=== PATIENT | male | born 2000 | race Caucasian/White ===

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

== ENCOUNTER 2022-05-05 21:55 | Inpatient (IN) | payer BC, SELFPAY ==
--- NOTE | 2022-05-05 21:59 | XRR_ITS ---
PROCEDURE INFORMATION: Exam: XR Chest Exam date and time: 05/05/2022 10:05 PM Age: 21 years old Clinical indication: Other: Seizure TECHNIQUE: Imaging protocol: Radiologic exam of the chest. Views: 1 view. COMPARISON: CR Chest 1 [place] [id number] 08/21/2019 3:57 PM FINDINGS: Lungs: Nonspecific infiltrate at the right lung base. Minimal atelectasis at the left lung base. The upper lungs are clear. Pleural spaces: No pleural effusion. No pneumothorax. Heart/Mediastinum: No cardiomegaly. Bones/joints: Unremarkable. XR/XR chest 1V portable [id number] IMPRESSION: 1. Airspace disease at the right lung base, suspicious for pneumonia. This is new when compared to the previous study. 2. Mild atelectasis at the left lung base.
--- NOTE | 2022-05-05 21:59 | CTR_ITS ---
PROCEDURE INFORMATION: Exam: CT Head Without Contrast Exam date and time: 05/05/2022 11:03 PM Age: 21 years old Clinical indication: Condition or disease; Convulsions or seizures; Patient HX: HX of seizures but last one was 9 yrs ago. 3 tonight; Additional info: Seizure TECHNIQUE: Imaging protocol: Computed tomography of the head without contrast. Radiation optimization: All CT scans at this facility use at least one of these dose optimization techniques: automated exposure control; mA and/or kV adjustment per patient size (includes targeted exams where dose is matched to clinical indication); or iterative reconstruction. COMPARISON: CT head wo con* [id number] 08/21/2019 4:53 PM RADIATION DOSE METRICS: Total DLP (mGy-cm): 1214.58 FINDINGS: Brain: Unremarkable. No hemorrhage. No significant white matter disease. No edema. Cerebral ventricles: No ventriculomegaly. Paranasal sinuses: Visualized sinuses are unremarkable. No fluid levels. Mastoid air cells: Unremarkable as visualized. No mastoid effusion. Bones/joints: Unremarkable. No acute fracture. Soft tissues: Unremarkable. CT/CT head wo con* [id number] IMPRESSION: 1. No acute intracranial abnormality demonstrated. 2. No new abnormality demonstrated, when compared to the prior study.
[2022-05-05 22:01] VITALS: PULSE 144; RESP 20; TEMP 39.2; O2SAT 90; BMI 31.4
[2022-05-05] MEDS: sodium chloride 0.9% 500 ML IV (22:17)
[2022-05-05] MEDS: acetaminophen 1,000 MG/100 ML PIGGYBACK 400 MG IV (22:18)
--- NOTE | 2022-05-05 22:34 | ED_ITS ---
HPI - Seizure General: Chief Complaint: Seizure Stated Complaint: RESP. DISRESS Time Seen by Provider: 05/05/22 21:59 Source: patient and EMS Mode of arrival: EMS Limitations: altered mental status History of Present Illness: HPI Narrative: 21-year-old male who has a history of autism and is nonverbal per EMS he had a previous seizure history but had not had a seizure in 9 years he does take Keppra at home. He states that just prior to arrival he had had a seizure at home. They state that he also seized with them and they gave him 4 mg of IV Ativan. He should they state that he has been postictal and quite somnolent since the Ativan. Mother states that he has been at his baseline today has not had no cough or fever he is febrile here at 102.5. Review of Systems General: Reports: ROS unobtainable due to mental status [facility] ED PFSH: Medical History Allergic rhinitis Anxiety Autism disorder Epilepsy Managed by Dr. Casanova Surgical History History of tonsillectomy and adenoidectomy Hx of myringotomy Family History Other CAD (coronary artery disease) Cancer Lung disease Migraines, neuralgic Social History Smoking and tobacco status: never smoked Physical Exam Const: COMMON NORMALS: negative for patient oriented x3 EXAM LIMITATIONS: altered mental status GENERAL APPEARANCE: ill appearing HENMT: COMMON NORMALS: normocephalic and atraumatic HEAD & SCALP: nor mocephalic and atraumatic Eye: COMMON NORMALS: Equal, round and reactive pupils present PUPIL: Yes Equal, round and reactive pupils present Neck/C-Spine: COMMON NORMALS: full ROM and supple Chest: COMMONS NORMALS: normal inspection of the chest and normal palpation of entire chest wall Resp: COMMON NORMALS: normal respiratory effort, No retractions and No use of accessory muscles AUSCULTATION: rales Cardio: COMMON NORMALS: regular rhythm and No murmurs present (Cardio) RATE: tachycardic RHYTHM: regular rhythm GI: COMMON NORMALS: Normal to inspection, nondistended, normoactive bowel sounds present, Soft to palpation, non-tender and no masses PALPATION: Yes Soft to palpation Extremity: COMMON NORMALS: normal to inspection and full ROM Neuro: COMMON NORMALS: negative for patient oriented x3 Psych: COMMON NORMALS: negative for mental status grossly normal Skin: COMMON NORMALS: no rashes or lesions noted and no wounds GENERAL SKIN EXAM: no rashes or lesions noted Course Vital Signs: Vital signs: Vital Signs Temperature 98.6 F 05/06/22 00:30 Pulse Rate 122 H 05/06/22 00:30 Respiratory Rate 22 H 05/06/22 00:30 Blood Pressure 104/70 05/06/22 00:30 Pulse Oximetry 93 05/06/22 00:30 MDM - Seizure MDM Narrative Medical decision making narrative: Patient presents here with seizure he is also febrile likely from a pneumonia. Does have a history of a seizure but has not had one in quite some time his head CT here is normal patient is now awake and is back at his baseline. I spoke to the hospitalist and will admit at this time with his pneumonia. Lab Data Result diagrams: 05/05/22 22:41 05/05/22 22:41 Labs: Radiology Impressions Chest X-Ray 05/05/22 21:59 IMPRESSION: 1. Airspace disease at the right lung base, suspicious for pneumonia. This is new when compared to the previous study. 2. Mild atelectasis at the left lung base. Head CT 05/05/22 21:59 IMPRESSION: 1. No acute intracranial abnormality demonstrated. 2. No new abnormality demonstrated, when compared to the prior study. Laboratory Results WBC 7.2 10^3/uL (4.5-13.0) 05/05/22 22:41 RBC 4.23 10^6/uL (4.1-5.3) 05/05/22 22:41 Hgb 10.3 g/dL (11.7-16.6) L 05/05/22 22:41 Hct 34.4 % (42.0-52.0) L 05/05/22 22:41 MCV 81.3 fl (80-94) 05/05/22 22:41 MCH 24.3 pg (28.0-34.0) L 05/05/22 22:41 MCHC 29.9 g/dL (30.0-36.0) L 05/05/22 22:41 RDW 20.1 % (12.1-15.1) H 05/05/22 22:41 Plt Count 330 10^3/cmm (130-400) 05/05/22 22:41 MPV 8.3 fL (7.4-10.4) 05/05/22 22:41 Neut % (Auto) 81.9 % 05/05/22 22:41 Lymph % (Auto) 11.0 % 05/05/22 22:41 [place] % (Auto) 5.1 % 05/05/22 22:41 Eos % (Auto) 0.8 % 05/05/22 22:41 Baso % (Auto) 0.4 % 05/05/22 22:41 Neut # (Auto) 5.89 10^3/uL (1.8-8.0) 05/05/22 22:41 Lymph # (Auto) 0.8 10^3/uL (1.5-6.5) L 05/05/22 22:41 [place] # (Auto) 0.4 10^3/uL (0.2-0.9) 05/05/22 22:41 Eos # (Auto) 0.1 10^3/uL (0.0-0.8) 05/05/22 22:41 Baso # (Auto) 0.0 10^3/uL (0.0-0.1) 05/05/22 22:41 Nucleated RBC % (auto) 0 % 05/05/22 22:41 Nucleated RBCs # 0.0 /100WBC 05/05/22 22:41 Sodium 142 mmol/L (136-145) 05/05/22 22:41 Potassium 4.0 mmol/L (3.5-5.1) 05/05/22 22:41 Chloride 105 mmol/L (98-107) 05/05/22 22:41 Carbon Dioxide 30 mmol/L (22-29) H 05/05/22 22:41 Anion Gap 11.0 (5-19) 05/05/22 22:41 BUN 9 mg/dL (6-20) 05/05/22 22:41 Creatinine 1.0 mg/dL (0.7-1.2) 05/05/22 22:41 GFR Calculation 96.3 mL/min (90-130) 05/05/22 22:41 Glucose 134 mg/dL (65-115) H 05/05/22 22:41 Calculated Osmolality 295 mOsm/kg (285-295) 05/05/22 22:41 Calcium 8.7 mg/dL (8.5-10.5) 05/05/22 22:41 Total Bilirubin 0.3 mg/dL (0.15-1.2) 05/05/22 22:41 AST 30 U/L (0-40) 05/05/22 22:41 ALT 31 U/L (0-41) 05/05/22 22:41 Alkaline Phosphatase 75 IU/L (40-130) 05/05/22 22:41 Total Protein 6.8 g/dL (6.6-8.7) 05/05/22 22:41 Albumin 4.6 g/dL (3.5-5.2) 05/05/22 22:41 Globulin 2.2 g/dL (1.3-4.6) 05/05/22 22:41 Urine Color Yellow (Yellow) 05/05/22 22:20 Urine Appearance Clear (CLEAR) 05/05/22 22:20 Urine pH 7 (5-7) 05/05/22 22:20 Ur Specific [place] 1.010 (1.005-1.030) 05/05/22 22:20 Urine Protein Neg (Negative) 05/05/22 22:20 Urine Glucose (UA) Norm (Normal) 05/05/22 22:20 Urine Ketones Negative (Negative) 05/05/22 22:20 Urine Blood 2+ (Negative) H 05/05/22 22:20 Urine Nitrate Negative (Negative) 05/05/22 22:20 Urine Bilirubin Neg (Negative) 05/05/22 22:20 Urine Urobilinogen 4 mg/dL (Negative) H 05/05/22 22:20 Ur Leukocyte Esterase Negative (Negative) 05/05/22 22:20 Urine RBC 5-10 /hpf (0-2) H 05/05/22 22:20 Urine WBC 0-4 /hpf (0-5) H 05/05/22 22:20 Ur Squamous Epith Cells 0-4 /hpf (0-5) H 05/05/22 22:20 Amorphous Sediment Not Reportable 07/13/22 22:20 Urine Bacteria Trace /hpf (NONE) 05/05/22 22:20 SARS-CoV-2 Ag (Rapid) Negative (Negative) 05/05/22 22:20 Group A Strep Rapid Negative (Negative) 05/05/22 22:20 EKG Data EKG 1: Attestation: I personally reviewed and interpreted this EKG as follows: EKG interpretation date: 05/05/22 EKG interpretation time: 22:04 Interpretation: sinus tach hr [address] or t wave abnormalities qrs 97 qtc 338 Discharge Plan Discharge Patient Disposition: Admitted As Inpatient Clinical Impression: Generalized seizure, Pneumonia Condition: Stable Coding Level of Care Code ED Retail Advertising Account Executive for Chg Fwd Exam Comprehensive
[2022-05-05 22:39] LABS: Rapid Strep A Test Negative (Negative)
[2022-05-05 22:45] VITALS: BP 177/80; PULSE 146; RESP 16; O2SAT 89
[2022-05-05] MEDS: cefTRIAXone 1,000 MG in sodium chloride 0.9% (plus) 50 ML 100 MG IV (22:47)
[2022-05-05] MEDS: azithromycin 500 MG in sodium chloride 0.9% 250 ML 250 MG IV (22:47)
[2022-05-05 22:48] LABS: SARS Covid-2 Antigen Negative (Negative)
[2022-05-05 22:50] LABS: Basophils % 0.4 %; Eosinophils # 0.1 10^3/uL (0.0-0.8); Eosinophils % 0.8 %; Hematocrit 34.4 % (42.0-52.0); Hemoglobin 10.3 g/dL (11.7-16.6); Lymphocytes # 0.8 10^3/uL (1.5-6.5); Mean Corpuscular HGB Conc 29.9 g/dL (30.0-36.0); Mean Corpuscular Hemoglobin 24.3 pg (28.0-34.0); Mean Corpuscular Volume 81.3 fl (80-94); Mean Platelet Volume 8.3 fL (7.4-10.4); Monocytes # 0.4 10^3/uL (0.2-0.9); Monocytes % 5.1 %; Neutrophils # 5.89 10^3/uL (1.8-8.0); Neutrophils % 81.9 %; Nucleated Red Blood Cells % 0 %; Platelet Count 330 10^3/cmm (130-400); Red Blood Count 4.23 10^6/uL (4.1-5.3); Red Cell Distribution Width 20.1 % (12.1-15.1); White Blood Count 7.2 10^3/uL (4.5-13.0)
[2022-05-05 22:53] LABS: Add Urine Microscopic? YES; Bilirubin Urine Neg (Negative); Blood Urine 2+ (Negative); Glucose Urine UA Norm (Normal); Ketones Urine Negative (Negative); Leukocyte Esterase Urine Negative (Negative); Nitrate Urine Negative (Negative); Protein Urine Neg (Negative); Urine Appearance Clear (CLEAR); Urine Color Yellow (Yellow); Urobilinogen Urine 4 mg/dL (Negative); pH Urine 7 (5-7)
[2022-05-05 22:54] LABS: Add Urine Culture? No; Bacteria Urine TRACE /hpf; Squamous Epithelial Cell Urine 0-4 /hpf (0-5); WBC Urine 0-4 /hpf (0-5)
[2022-05-05 23:15] VITALS: BP 152/61; PULSE 155; RESP 20; O2SAT 86
[2022-05-05] MEDS: sodium chloride 0.9% 1,000 ML 999 ML IV (23:22)
[2022-05-05 23:26] LABS: Alanine Aminotransferase 31 U/L (0-41); Albumin Level 4.6 g/dL (3.5-5.2); Alkaline Phosphatase 75 IU/L (40-130); Aspartate Amino Transferase 30 U/L (0-40); Blood Urea Nitrogen 9 mg/dL (6-20); Calcium 8.7 mg/dL (8.5-10.5); Carbon Dioxide 30 mmol/L (22-29); Chloride 105 mmol/L (98-107); Globulin 2.2 g/dL (1.3-4.6); Glomerular Filtration Rate 96.3 mL/min (90-130); Glucose 134 mg/dL (65-115); Osmolality Calculated 295 mOsm/kg (285-295); Sodium 142 mmol/L (136-145); Total Bilirubin 0.3 mg/dL (0.15-1.2); Total Protein 6.8 g/dL (6.6-8.7)
[2022-05-05 23:30] VITALS: BP 146/59; PULSE 151; RESP 21; O2SAT 88
[2022-05-05 23:45] VITALS: BP 155/66; PULSE 147; RESP 22; O2SAT 86
[2022-05-06] VITALS (16 sets, daily range): BP systolic 104–151; BP diastolic 58–96; PULSE 81–127; RESP 13–24; TEMP 36.4–38.3; O2SAT 80–100; BMI 26.3
--- NOTE | 2022-05-06 02:29 | P.HP_ITS ---
Providers/Chief Complaint Admitting Physician: Flor King MD Primary Care Provider: Roxann Martinez MD Chief Complaint: RESP. DISRESS History of Present Illness Doug Pantoja is a 21 year old male with autism, severe developmental delay, nonverbal at baseline brought to the emergency room today with witnessed episode of seizure at home at around 8:30 PM. Mother witnessed patient to have had a seizure, presenting as twisting tightening movement of both upper and lower extremities, upturning of eyes, relative period of unresponsiveness lasting about a few minutes. Patient has been lethargic post the episode. Patient has a known history of seizure disorder and is on Keppra 750 mg p.o. twice daily. Last seizure prior to today was 9 years ago. No history of head trauma. Upon presentation to the ER he was also noted to be febrile to 102 Fahrenheit and has chest x-ray consistent with a right lower lobe pneumonia. Mother denies any complaints of cough, rhinorrhea, dyspnea, palpitations. He does have a new oxygen requirement today. Patient had 1 episode of diarrhea 2 days ago which resolved spontaneously. No vomiting or abdominal pain. Mother did not notice a fever at home. No witnessed aspiration episodes at home. Review of Systems General: Reports: 10 or more systems reviewed and unremarkable except in HPI and below Const: Denies: fever(s), chills or body aches Eyes: Denies: change in vision, blurry vision or photophobia ENMT: Reports: hoarseness; Denies: throat pain, enlarged tonsils, odynophagia or nasal congestion Card: Denies: chest pain, palpitations, irregular heart rhythm, edema, swelling of feet/ankles, lightheadedness, pre-syncope, dyspnea on exertion or orthopnea Resp: Denies: dyspnea, productive cough, non-productive cough, wheezing, stridor, pain on inspiration, change in phlegm color, hemoptysis or chest congestion GI: Denies: abdominal pain, nausea, vomiting, hematemesis, coffee ground emesis, dysphagia, heartburn, diarrhea, constipation, GI cramping, change in st ool character, hematochezia or melena : Denies: flank pain, dysuria, urinary frequency, urinary urgency, urinary hesitancy or hematuria Musc: Denies: neck pain, back pain, extremity pain, joint swelling, joint warmth or deformity Neuro: Denies: headache(s), numbness in extremities, weakness in extremities, sensory changes, difficulty walking, frequent falls, dizziness, vertigo, behavioral changes, Slurred speech present or seizure-like activity Psych: Denies: anxiety, depression, suicidal ideation or homicidal ideation Endo: Denies: polyuria, polydipsia, tired all the time, cold intolerance or hot flashes Theo/Lymph: Denies: easy bruising or easy bleeding Medications/Allergies Home Medications Medication Instructions Recorded Confirmed Last Taken Type clonidine HCl 0.1 mg tablet 0.1 mg PO .qhs #30 tab 11/19/19 05/06/22 Unknown Rx hydroxyzine HCl 25 mg tablet 25 mg PO TID PRN 05/06/22 05/06/22 Unknown History levetiracetam 750 mg tablet 750 mg PO BID 05/06/22 05/06/22 Unknown History loratadine 10 mg tablet 10 mg PO DAILY PRN 05/06/22 05/06/22 Unknown History melatonin 1 mg tablet 1 mg PO BEDTIME PRN 05/06/22 05/06/22 Unknown History sertraline 50 mg tablet 150 mg PO DAILY 05/06/22 05/06/22 Unknown History Allergies Allergy/AdvReac Type Severity Reaction Status Date / Time Penicillins Allergy ADR-Nausea Verified 06/18/21 15:17 Sulfa (Sulfonamide Allergy Unknown Verified 06/18/21 15:17 Antibiotics) PFSH Acute PFSH: Medical History Allergic rhinitis Anxiety Autism disorder Epilepsy Managed by Dr. Casanova Surgical History History of tonsillectomy and adenoidectomy Hx of myringotomy Family History Other CAD (coronary artery disease) Cancer Lung disease Migraines, neuralgic Social History Smoking and tobacco status: never smoked Vitals/I&O/Wt Last Vital Signs Temp 98.6 F 05/06/22 00:30 Pulse 122 H 05/06/22 01:28 Resp 22 H 05/06/22 01:28 BP 123/77 05/06/22 01:28 Pulse Ox 89 L 05/06/22 01:28 05/05/22 05/05/22 05/06/22 14:59 22:59 06:59 Intake Total 710 / 710 1299 Balance 710 / 710 1299 Weight last 48 hrs Weight 102.058 kg Physical Exam Narrative: GEN: Asleep at the time of my exam. Resting comfortably in bed. Oxi mask in place CVS: S1S2 N RS: Coarse breath sounds to auscultation right lower lobe. Abd: Soft, nt/nd , bs+ DIRECTOR SHIP: Asleep currently, wakes up to his mother calling name at bedside. Moves all 4 extremities in bed. Data : 05/05/22 22:41 05/05/22 22:41 Other Labs: Radiology Impressions Chest X-Ray 05/05/22 21:59 IMPRESSION: 1. Airspace disease at the right lung base, suspicious for pneumonia. This is new when compared to the previous study. 2. Mild atelectasis at the left lung base. Head CT 05/05/22 21:59 IMPRESSION: 1. No acute intracranial abnormality demonstrated. 2. No new abnormality demonstrated, when compared to the prior study. Laboratory Results WBC 7.2 10^3/uL (4.5-13.0) 05/05/22 22:41 RBC 4.23 10^6/uL (4.1-5.3) 05/05/22 22:41 Hgb 10.3 g/dL (11.7-16.6) L 05/05/22 22:41 Hct 34.4 % (42.0-52.0) L 05/05/22 22:41 MCV 81.3 fl (80-94) 05/05/22 22:41 MCH 24.3 pg (28.0-34.0) L 05/05/22 22:41 MCHC 29.9 g/dL (30.0-36.0) L 05/05/22 22:41 RDW 20.1 % (12.1-15.1) H 05/05/22 22:41 Plt Count 330 10^3/cmm (130-400) 05/05/22 22:41 MPV 8.3 fL (7.4-10.4) 05/05/22 22:41 Neut % (Auto) 81.9 % 05/05/22 22:41 Lymph % (Auto) 11.0 % 05/05/22 22:41 [place] % (Auto) 5.1 % 05/05/22 22:41 Eos % (Auto) 0.8 % 05/05/22 22:41 Baso % (Auto) 0.4 % 05/05/22 22:41 Neut # (Auto) 5.89 10^3/uL (1.8-8.0) 05/05/22 22:41 Lymph # (Auto) 0.8 10^3/uL (1.5-6.5) L 05/05/22 22:41 [place] # (Auto) 0.4 10^3/uL (0.2-0.9) 05/05/22 22:41 Eos # (Auto) 0.1 10^3/uL (0.0-0.8) 05/05/22 22:41 Baso # (Auto) 0.0 10^3/uL (0.0-0.1) 05/05/22 22:41 Nucleated RBC % (auto) 0 % 05/05/22 22:41 Nucleated RBCs # 0.0 /100WBC 05/05/22 22:41 Sodium 142 mmol/L (136-145) 05/05/22 22:41 Potassium 4.0 mmol/L (3.5-5.1) 05/05/22 22:41 Chloride 105 mmol/L (98-107) 05/05/22 22:41 Carbon Dioxide 30 mmol/L (22-29) H 05/05/22 22:41 Anion Gap 11.0 (5-19) 05/05/22 22:41 BUN 9 mg/dL (6-20) 05/05/22 22:41 Creatinine 1.0 mg/dL (0.7-1.2) 05/05/22 22:41 GFR Calculation 96.3 mL/min (90-130) 05/05/22 22:41 Glucose 134 mg/dL (65-115) H 05/05/22 22:41 Calculated Osmolality 295 mOsm/kg (285-295) 05/05/22 22:41 Calcium 8.7 mg/dL (8.5-10.5) 05/05/22 22:41 Total Bilirubin 0.3 mg/dL (0.15-1.2) 05/05/22 22:41 AST 30 U/L (0-40) 05/05/22 22:41 ALT 31 U/L (0-41) 05/05/22 22:41 Alkaline Phosphatase 75 IU/L (40-130) 05/05/22 22:41 Total Protein 6.8 g/dL (6.6-8.7) 05/05/22 22:41 Albumin 4.6 g/dL (3.5-5.2) 05/05/22 22:41 Globulin 2.2 g/dL (1.3-4.6) 05/05/22 22:41 Procalcitonin 0.06 ng/mL (0-0.5) 05/05/22 22:41 Urine Color Yellow (Yellow) 05/05/22 22:20 Urine Appearance Clear (CLEAR) 05/05/22 22:20 Urine pH 7 (5-7) 05/05/22 22:20 Ur Specific [place] 1.010 (1.005-1.030) 05/05/22 22:20 Urine Protein Neg (Negative) 05/05/22 22:20 Urine Glucose (UA) Norm (Normal) 05/05/22 22:20 Urine Ketones Negative (Negative) 05/05/22 22:20 Urine Blood 2+ (Negative) H 05/05/22 22:20 Urine Nitrate Negative (Negative) 05/05/22 22:20 Urine Bilirubin Neg (Negative) 05/05/22 22:20 Urine Urobilinogen 4 mg/dL (Negative) H 05/05/22 22:20 Ur Leukocyte Esterase Negative (Negative) 05/05/22 22:20 Urine RBC 5-10 /hpf (0-2) H 05/05/22 22:20 Urine WBC 0-4 /hpf (0-5) H 05/05/22 22:20 Ur Squamous Epith Cells 0-4 /hpf (0-5) H 05/05/22 22:20 Amorphous Sediment Not Reportable 05/05/22 22:20 Urine Bacteria Trace /hpf (NONE) 05/05/22 22:20 SARS-CoV-2 Ag (Rapid) Negative (Negative) 05/05/22 22:20 Group A Strep Rapid Negative (Negative) 05/05/22 22:20 Micro: Microbiology 05/05/22 22:43 Blood Culture - Preliminary Blood SPECIMEN COLLECTED 05/05/22 22:40 Blood Culture - Preliminary Blood SPECIMEN COLLECTED A&P Assessment and plan (1) Generalized seizure: Patient with known seizure disorder, presenting today with breakthrough seizure. He received Keppra loading dose 1 mg in the emergency room. We will continue keppra 750mg po bid. check Keppra level. Electrolytes otherwise within normal range. CT head without any acute abnormalities. His mother reports a past history of febrile seizures. Status: Acute (2) Community acquired pneumonia: Chest x-ray with right lower lobe infiltrate. No recent witnessed aspiration episode, however per mother patient has had choking episodes in the past when he has tried to stuff his mouth with too much food. Etiology of pneumonia likely to be CAP versus possible aspiration. Empiric antibiotic coverage with ceftriaxone, Flagyl, azithromycin. Urine Legionella and bacterial antigen, check sputum culture and gram stain, MRSA by PCR. Rapid COVID antigen negative. Supplemental O2 to keep saturation greater than 92%. DuoNeb inhalation every 6 hours. FEN normal saline at 75 cc an hour. Blood culture taken prior to initiation of antibiotics. Status: Acute Attestations Medical Necessity Statement*: Anticipate greater than 2 midnight for management of community-acquired pneumonia, IV antibiotics, seizures Coding Level of Care Code Acute Costume Shop Manager for Irene Galicia Diagnoses Generalized seizure R56.9 Community acquired pneumonia J18.9
[2022-05-06] MEDS: sodium chloride 0.9% 1,000 ML 75 ML IV (03:20)
[2022-05-06] MEDS: enoxaparin 40 mg/0.4 mL Syringe SUBCUT (03:21)
[2022-05-06] MEDS: metroNIDAZOLE IV 500 MG/100 ML PREMIX 100 MG IV (03:21)
[2022-05-06] MEDS: ipratropium-albuterol 3 mL Neb INHALATION ×4 (03:57→20:45)
[2022-05-06] MEDS: acetaminophen 1,000 MG/100 ML PIGGYBACK 400 MG IV (04:44)
[2022-05-06] MEDS: sertraline 50 mg Tablet 150 MG PO (09:28)
[2022-05-06] MEDS: azithromycin 250 mg Tablet 500 MG PO (09:29)
[2022-05-06] MEDS: pantoprazole DR 40 mg Tablet PO (09:29)
--- NOTE | 2022-05-06 10:41 | PM.PN ---
Subjective Subjective: Patient is febrile, tachycardic no leukocytosis He has not been diagnosed with sepsis Patient has been pulling on his IV in the tubes, will remove Humphreys catheter I will switch his IV antibiotics to p.o. Augmentin For his seizure etiology is unknown, right now he is saturating well on room air 97% Nasal cannula has been turned off, caregiver at the bedside Vitals/I&O/Wt Last Vital Signs Temp 101.0 F H 05/06/22 04:00 Pulse 102 H 05/06/22 08:43 Resp 18 05/06/22 08:32 BP 125/68 05/06/22 04:00 Pulse Ox 98 05/06/22 08:32 05/05/22 05/06/22 05/06/22 22:59 06:59 14:59 Intake Total 710 / 710 1500 / 2210 Output Total 1999 / 1999 Balance 710 / 710 -500 / 210 Weight last 48 hrs Weight 92.986 kg Weight 102.058 kg Physical Exam Narrative: Patient was saturating well 97% on room air He is nonverbal Moving his arms and legs nonpurposeful weight I do not appreciate any signs of meningitis He is febrile, source of infection is pneumonia Bilateral breath sounds with crackles at the base of the lungs Chest also sound congested Neuro exam is limited He is able able to follow commands Abdomen is soft I did not appreciate any swelling of his legs or genitalia Data : 05/05/22 22:41 05/05/22 22:41 Micro: Microbiology 05/06/22 04:20 Bacterial Antigens - Final Urine,Clean Catch 05/06/22 04:20 Legionella Urinary Antigen - Final Urine Catheterized 05/05/22 22:43 Blood Culture - Preliminary Blood SPECIMEN COLLECTED 05/05/22 22:40 Blood Culture - Preliminary Blood SPECIMEN COLLECTED A&P Assessment and plan (1) Community acquired pneumonia: Status: Acute (2) Generalized seizure: Status: Acute (3) Pneumonia: Status: Acute (4) Incontinence of feces: Status: Acute Qualifiers: Fecal incontinence type: full incontinence of feces Qualified Code(s): R15.9 - Full incontinence of feces Plan Community-acquired pneumonia Generalized seizure I will watch him off antiepileptic for now He satting well on room air He is not hypoxic No signs of meningitis Febrile episodes noted, source of infection is pneumonia Patient has been pulling on his Humphreys catheter and IV line, He was bleeding from his IV site as well He is not diagnosed with sepsis I would go ahead and de-escalate his antibiotics to Augmentin, discontinue Humphreys catheter He can wear adult diapers Full code Attestations Medical Necessity Statement*: dc Tomorrow Coding Level of Care Code Acute Hothouse Worker for Chg Fwd Diagnoses Community acquired pneumonia J18.9 Generalized seizure R56.9 Pneumonia J18.9 Incontinence of feces R15.9 Fecal incontinence type: full incontinence of feces
[2022-05-06] MEDS: amoxicillin-clav 875-125 mg Tablet 1 TAB PO ×2 (11:51→20:22)
[2022-05-06] MEDS: ketorolac 30 mg/mL INJ IM (11:52)
[2022-05-06 12:00] LABS: Glucose Point of Care 108 mg/dL (70-110)
[2022-05-07] VITALS: BP 175/85; PULSE 100; RESP 14; TEMP 36.8; O2SAT 98
[2022-05-07 03:07] LABS: Basophils % 0.1 %; Hematocrit 32.8 % (42.0-52.0); Hemoglobin 10.3 g/dL (11.7-16.6); Lymphocytes # 0.7 10^3/uL (1.5-6.5); Lymphocytes % 9.1 %; Mean Corpuscular HGB Conc 31.4 g/dL (30.0-36.0); Mean Corpuscular Hemoglobin 24.3 pg (28.0-34.0); Mean Corpuscular Volume 77.5 fl (80-94); Mean Platelet Volume 8.6 fL (7.4-10.4); Monocytes # 0.4 10^3/uL (0.2-0.9); Monocytes % 5.6 %; Neutrophils # 6.06 10^3/uL (1.8-8.0); Neutrophils % 84.9 %; Nucleated Red Blood Cells % 0 %; Platelet Count 286 10^3/cmm (130-400); Red Blood Count 4.23 10^6/uL (4.1-5.3); Red Cell Distribution Width 19.2 % (12.1-15.1); White Blood Count 7.1 10^3/uL (4.5-13.0)
[2022-05-07 03:38] LABS: Anion Gap 15.1 (5-19); Blood Urea Nitrogen 12 mg/dL (6-20); Calcium 9.3 mg/dL (8.5-10.5); Carbon Dioxide 27 mmol/L (22-29); Chloride 97 mmol/L (98-107); Glomerular Filtration Rate 145.3 mL/min (90-130); Glucose 111 mg/dL (65-115); Osmolality Calculated 280 mOsm/kg (285-295); Potassium 4.1 mmol/L (3.5-5.1); Sodium 135 mmol/L (136-145); Thyroid Stimulating Hormone 1.35 uIU/mL (0.27-4.20)
[2022-05-07 04:00] VITALS: BP 134/83; PULSE 86; RESP 15; TEMP 36.8; O2SAT 97
[2022-05-07 08:00] VITALS: BP 138/78; PULSE 96; RESP 16; TEMP 36.8; O2SAT 93
[2022-05-07] MEDS: ipratropium-albuterol 3 mL Neb INHALATION (08:14)
[2022-05-07 08:15] VITALS: PULSE 96; RESP 16; O2SAT 93
[2022-05-07 08:23] VITALS: PULSE 102; RESP 16; O2SAT 93
[2022-05-07] MEDS: sertraline 50 mg Tablet 150 MG PO (08:34)
[2022-05-07] MEDS: amoxicillin-clav 875-125 mg Tablet 1 TAB PO (08:34)
[2022-05-07] MEDS: pantoprazole DR 40 mg Tablet PO (08:35)
--- NOTE | 2022-05-07 10:22 | PM.DCS ---
Discharge Providers Date of Admission: 05/06/22 00:40 Date of Discharge: May 07, 2022 Attending Provider at Admission: Flor King MD Attending Provider at Discharge: Álvaro Kuhn MD Primary Care Provider: Roxann Martinez MD Diagnoses at Discharge Discharge Diagnosis (1) Community acquired pneumonia: Status: Acute (2) Generalized seizure: Status: Acute (3) Pneumonia: Status: Acute (4) Incontinence of feces: Status: Acute Qualifiers: Fecal incontinence type: full incontinence of feces Qualified Code(s): R15.9 - Full incontinence of feces Reason for Visit Reason for Visit: RESP. DISRESS Hospital Course Hospital Course History of Present Illness by Dr. King Doug Pantoja is a 21 year old male with autism, severe developmental delay, nonverbal at baseline brought to the emergency room today with witnessed episode of seizure at home at around 8:30 PM.? Mother witnessed patient to have had a seizure, presenting as twisting tightening movement of both upper and lower extremities, upturning of eyes, relative period of unresponsiveness lasting about a few minutes.? Patient has been lethargic post the episode.? Patient has a known history of seizure disorder and is on Keppra 750 mg p.o. twice daily.? Last seizure prior to today was 9 years ago.? No history of head trauma.? Upon presentation to the ER he was also noted to be febrile to 102 Fahrenheit and has chest x-ray consistent with a right lower lobe pneumonia.? Mother denies any complaints of cough, rhinorrhea, dyspnea, palpitations.? He does have a new oxygen requirement today.? Patient had 1 episode of diarrhea 2 days ago which resolved spontaneously.? No vomiting or abdominal pain.? Mother did not notice a fever at home.? No witnessed aspiration episodes at home. Hospital course Patient was admitted for management evaluation of pneumonia, right lower lobe pneumonia most likely consistent with aspiration, patient was pulling his IV line and Humphreys catheter, I change his antibiotics to p.o. Augmentin, he did not spike fever since de-escalation of antibiotics, he was not septic, cultures negative, no significant leukocytosis At the time of admission patient is not requiring any oxygen at all, he saturating 97% on room air, hypoxia improved. For his pneumonia he will get Augmentin and he can continue his Keppra 750 mg twice daily for now. Urine antigens are negative. Blood cultures negative. MRSA nares PCR negative Physical Exam Narrative: Patient is saturating well on room air Patient is nonverbal Sister is at the bedside Patient looks euvolemic Bilateral breath sounds with rhonchi at the base of the lungs bilaterally No audible stridor or wheezing No signs of respiratory distress Abdomen soft S1, S2 Discharge Data Studies Completed and Pending Completed Studies During Hospitalization Category Date Time Status CT head wo con* [id number] Urgent Cat Scan 05/05/22 21:59 Completed XR chest 1V portable [id number] Urgent Exams 05/05/22 21:59 Completed Pending at discharge Category Date Time Status Blood Culture Stat Lab 05/05/22 22:43 Results Sputum Culture and Gram Stain Routine Lab 05/06/22 02:15 Ordered Streptococcus Culture Group A Stat Lab 05/05/22 22:20 Received Radiology Impressions Chest X-Ray 05/05/22 21:59 IMPRESSION: 1. Airspace disease at the right lung base, suspicious for pneumonia. This is new when compared to the previous study. 2. Mild atelectasis at the left lung base. Head CT 05/05/22 21:59 IMPRESSION: 1. No acute intracranial abnormality demonstrated. 2. No new abnormality demonstrated, when compared to the prior study. Laboratory Results WBC 7.1 10^3/uL (4.5-13.0) 05/07/22 02:28 RBC 4.23 10^6/uL (4.1-5.3) 05/07/22 02:28 Hgb 10.3 g/dL (11.7-16.6) L 05/07/22 02:28 Hct 32.8 % (42.0-52.0) L 05/07/22 02:28 MCV 77.5 fl (80-94) L 05/07/22 02:28 MCH 24.3 pg (28.0-34.0) L 05/07/22 02:28 MCHC 31.4 g/dL (30.0-36.0) D 05/07/22 02:28 RDW 19.2 % (12.1-15.1) H 05/07/22 02:28 Plt Count 286 10^3/cmm (130-400) 05/07/22 02:28 MPV 8.6 fL (7.4-10.4) 05/07/22 02:28 Neut % (Auto) 84.9 % 05/07/22 02:28 Lymph % (Auto) 9.1 % 05/07/22 02:28 [place] % (Auto) 5.6 % 05/07/22 02:28 Eos % (Auto) 0.0 % 05/07/22 02:28 Baso % (Auto) 0.1 % 05/07/22 02:28 Neut # (Auto) 6.06 10^3/uL (1.8-8.0) 05/07/22 02:28 Lymph # (Auto) 0.7 10^3/uL (1.5-6.5) L 05/07/22 02:28 [place] # (Auto) 0.4 10^3/uL (0.2-0.9) 05/07/22 02:28 Eos # (Auto) 0.0 10^3/uL (0.0-0.8) 05/07/22 02:28 Baso # (Auto) 0.0 10^3/uL (0.0-0.1) 05/07/22 02:28 Nucleated RBC % (auto) 0 % 05/07/22 02:28 Nucleated RBCs # 0.0 /100WBC 05/07/22 02:28 Sodium 135 mmol/L (136-145) L 05/07/22 02:28 Potassium 4.1 mmol/L (3.5-5.1) 05/07/22 02:28 Chloride 97 mmol/L (98-107) L 05/07/22 02:28 Carbon Dioxide 27 mmol/L (22-29) 05/07/22 02:28 Anion Gap 15.1 (5-19) 05/07/22 02:28 BUN 12 mg/dL (6-20) 05/07/22 02:28 Creatinine 0.7 mg/dL (0.7-1.2) 05/07/22 02:28 GFR Calculation 145.3 mL/min (90-130) H 05/07/22 02:28 Glucose 111 mg/dL (65-115) 05/07/22 02:28 POC Glucose 108 mg/dL (70-110) 05/06/22 11:37 Calculated Osmolality 280 mOsm/kg (285-295) L 05/07/22 02:28 Calcium 9.3 mg/dL (8.5-10.5) 05/07/22 02:28 Total Bilirubin 0.3 mg/dL (0.15-1.2) 05/05/22 22:41 AST 30 U/L (0-40) 05/05/22 22:41 ALT 31 U/L (0-41) 05/05/22 22:41 Alkaline Phosphatase 75 IU/L (40-130) 05/05/22 22:41 Total Protein 6.8 g/dL (6.6-8.7) 05/05/22 22:41 Albumin 4.6 g/dL (3.5-5.2) 05/05/22 22:41 Globulin 2.2 g/dL (1.3-4.6) 05/05/22 22:41 Procalcitonin Cancelled 05/05/22 22:41 TSH 1.35 uIU/mL (0.27-4.20) 05/07/22 02:28 Urine Color Yellow (Yellow) 05/05/22 22:20 Urine Appearance Clear (CLEAR) 05/05/22 22:20 Urine pH 7 (5-7) 05/05/22 22:20 Ur Specific [place] 1.010 (1.005-1.030) 05/05/22 22:20 Urine Protein Neg (Negative) 05/05/22 22:20 Urine Glucose (UA) Norm (Normal) 05/05/22 22:20 Urine Ketones Negative (Negative) 05/05/22 22:20 Urine Blood 2+ (Negative) H 05/05/22 22:20 Urine Nitrate Negative (Negative) 05/05/22 22:20 Urine Bilirubin Neg (Negative) 05/05/22 22:20 Urine Urobilinogen 4 mg/dL (Negative) H 05/05/22 22:20 Ur Leukocyte Esterase Negative (Negative) 05/05/22 22:20 Urine RBC 5-10 /hpf (0-2) H 05/05/22 22:20 Urine WBC 0-4 /hpf (0-5) H 05/05/22 22:20 Ur Squamous Epith Cells 0-4 /hpf (0-5) H 05/05/22 22:20 Amorphous Sediment Not Reportable 05/05/22 22:20 Urine Bacteria Trace /hpf (NONE) 05/05/22 22:20 Levetiracetam Cancelled 05/05/22 22:41 SARS-CoV-2 Ag (Rapid) Negative (Negative) 05/05/22 22:20 Group A Strep Rapid Negative (Negative) 05/05/22 22:20 Vitals Last Vital Signs Temp 98.3 F 05/07/22 08:00 Pulse 102 H 05/07/22 08:23 Resp 16 05/07/22 08:23 BP 138/78 05/07/22 08:00 Pulse Ox 93 05/07/22 08:23 Discharge Plan Discharge Patient Disposition: Home Condition: Stable Prescriptions: New amoxicillin-pot clavulanate 875-125 mg Tablet 1 tab PO BID Qty: 10 0RF Continued clonidine HCl 0.1 mg tablet 0.1 mg PO .qhs Qty: 30 3RF melatonin 1 mg Tablet 1 mg PO BEDTIME PRN (Reason: Insomnia) 0RF hydroxyzine HCl 25 mg tablet 25 mg PO TID PRN (Reason: Itching) 0RF Rx Instructions: TAKE 1 TABLET BY MOUTH THREE TIMES A DAY NEEDED FOR ITCHING sertraline 50 mg tablet 150 mg PO DAILY 0RF Changed levetiracetam 750 mg tablet 750 mg PO BID Qty: 60 3RF Rx Instructions: TAKE 1 TABLET BY MOUTH TWICE A DAY Discontinued loratadine 10 mg Tablet 10 mg PO DAILY PRN (Reason: Allergy Symptoms) 0RF Discharge Orders: Discharge Order (Routine); Ordered 05/07/22 Ordered By: Álvaro Kuhn Referrals: Roxann Martinez MD [Primary Care Provider] - Patient Instructions: Opioid Safety Discharge Attestations Time Spent in Discharge Care*: less than 30 min Quality Metrics Clinical Quality Measures [ No reported AMI, CVA or VTE this stay] Coding Level of Care Code Acute [facility] note Diagnoses Community acquired pneumonia J18.9 Generalized seizure R56.9 Pneumonia J18.9 Incontinence of feces R15.9 Fecal incontinence type: full incontinence of feces
--- NOTE | 2022-05-07 10:27 | PM.MISC ---
Miscellaneous Note Note: Mr. Doug Corley was admitted for management of breakthrough seizure and aspiration pneumonia. He will get Augmentin for 5 days. He will continue his antiepileptic medication. Fortunately we have been successful to wean him off oxygen to room air. Please consider giving him 5 days off from his school. Should you have any questions [facility]
[2022-05-07 10:49] VITALS: PULSE 102; RESP 16; O2SAT 93
--- NOTE | 2022-05-07 11:13 | PC.NURSE ---
Discharge to home w/ his legal guardian-cheryle Discuss to the mother his ff-up appointment and new meds, continued meds and discontinued meds. Discharge papers, school release paper provided to the mother.
== END 2022-05-07 11:12 | disposition home or self-care (01) | DRG 178 ==
LOC: ER 05-06 01:00 → MEDSURG 05-06 06:39
PROVIDERS: Admitting Provider Student in an Organized Health Care Education/Training Program; Emergency Provider Emergency Medicine; PCP Pediatrics Adolescent Medicine; Visit Provider Internal Medicine
DX: J69.0 Pneumonitis due to inhalation of food and vomit (principal); F84.0 Autistic disorder; G40.909 Epilepsy, unspecified, not intractable, without status epilepticus; R15.9 Full incontinence of feces; Z20.822 Contact with and (suspected) exposure to COVID-19
CPT/HCPCS: 36415; 36416; 70450; 71045; 80048; 80053; 81001; 82962; 84443; 85025; 86403; 87040; 87081; 87426; 87449; 87641; 87880; 94640; 94799; 96365; 96367; 96372; 96375; 99285; J0456; J0696; J1650; J1885; J1953; J7030; J7040; J7050; Q0144; S0030

== ENCOUNTER 2022-06-10 22:45 | Emergency (ER) | payer BC, MEDICAID, SELFPAY ==
[2022-06-10 22:45] VITALS: BP 173/91; PULSE 160; RESP 17; O2SAT 85; BMI 35.2
[2022-06-10] MEDS: midazolam 1 mg/mL INJ 2 mL 2 MG (22:48)
[2022-06-10] MEDS: vecuronium 10 mg SDV IVP (22:53)
--- NOTE | 2022-06-10 22:55 | CTR_ITS ---
PROCEDURE INFORMATION: Exam: CT Head Without Contrast Exam date and time: 06/10/2022 11:43 PM Age: 21 years old Clinical indication: Condition or disease; Convulsions or seizures; Prior surgery; Surgery date: 6+ months; Surgery type: Myringotomy, HX of epilepsy with autism; Additional info: Seizure TECHNIQUE: Imaging protocol: Computed tomography of the head without contrast. Radiation optimization: All CT scans at this facility use at least one of these dose optimization techniques: automated exposure control; mA and/or kV adjustment per patient size (includes targeted exams where dose is matched to clinical indication); or iterative reconstruction. COMPARISON: CT head wo con* [id number] 05/05/2022 11:03 PM RADIATION DOSE METRICS: Total DLP (mGy-cm): 1093.88 FINDINGS: Brain: Normal. No hemorrhage. Unremarkable white matter. No mass effect. Cerebral ventricles: No ventriculomegaly. Paranasal sinuses: Visualized sinuses are unremarkable. No fluid levels. Mastoid air cells: Visualized mastoid air cells are well aerated. Bones/joints: Unremarkable. No acute fracture. Soft tissues: Unremarkable. CT/CT head wo con* [id number] IMPRESSION: No acute intracranial abnormality.
--- NOTE | 2022-06-10 22:55 | XRR_ITS ---
PROCEDURE INFORMATION: Exam: XR Chest Exam date and time: 06/10/2022 10:59 PM Age: 21 years old Clinical indication: Device placement; Ett placement (vent status); Additional info: Intubation TECHNIQUE: Imaging protocol: Radiologic exam of the chest. Views: 1 view. COMPARISON: CR (CHEST, ) 05/05/2022 10:05 PM FINDINGS: Tubes, catheters and devices: Endotracheal tube tip in place 17.6 mm above the kasandra. Lungs: See Heart/Mediastinum finding. Pleural spaces: Unremarkable. No pleural effusion. No pneumothorax. Heart/Mediastinum: Cardiomegaly and mild pulmonary vascular congestion. Bones/joints: Unremarkable. XR/XR chest 1V portable [id number] IMPRESSION: 1. Endotracheal tube tip in place 17.6 mm above the kasandra. 2. Cardiomegaly and mild pulmonary vascular congestion.
--- NOTE | 2022-06-10 22:56 | ECG_ITS ---
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 Measurements Intervals [place] Rate: 140 P: OK: QRS: 94 QRSD: 93 T: 43 QT: 276 QTc: 422 Interpretive Statements SINUS TACHYCARDIA BORDERLINE RIGHT AXIS DEVIATION [QRS AXIS > 90] Compared to ECG 08/21/2019 16:53:14Sinus arrhythmia no longer present Electronically Signed On 06-11-2022 17:48:22 CDT by Tom Phan M.D. [email or web address]
--- NOTE | 2022-06-10 23:01 | W.ED.SEIZURE ---
HPI - Seizure General: Chief Complaint: Seizure Stated Complaint: SEIZURE Time Seen by Provider: 06/10/22 22:48 Source: EMS Mode of arrival: EMS Limitations: altered mental status History of Present Illness: HPI Narrative: 21-year-old male has a history of autism along with epilepsy he takes Keppra at home for his epilepsy Per EMS patient been seizing for 10 minutes had given him 5 mg of Versed patient is currently still actively seizing patient was admitted here roughly 1 to 2 months ago for seizures as well no recent illness no fever no vomiting no diarrhea. Review of Systems General: Reports: ROS unobtainable due to mental status PFS ED PFSH: Medical History Allergic rhinitis Anxiety Autism disorder Epilepsy Managed by Dr. Casanova Generalized seizure Hydrocele Noted May 2019. Decreased in size by report July 2019 and continued report May 2022. Incontinence of feces Pneumonia Surgical History History of tonsillectomy and adenoidectomy Hx of myringotomy Family History Other CAD (coronary artery disease) Cancer Lung disease Migraines, neuralgic Social History Smoking and tobacco status: never smoked Physical Exam Const: COMMON NORMALS: negative for patient oriented x3 GENERAL APPEARANCE: in distress HENMT: COMMON NORMALS: normocephalic and atraumatic HEAD & SCALP: normocephalic and atraumatic Eye: COMMON NORMALS: Equal, round and reactive pupils present and EOMs intact bilaterally PUPIL: Yes Equal, round and reactive pupils present Neck/C-Spine: COMMON NORMALS: full ROM and supple Chest: COMMONS NORMALS: normal inspection of the chest and normal palpation of entire chest wall Resp: COMMON NORMALS: No retractions, No use of accessory muscles and clear to auscultation bilaterally AUSCULTATION: clear to auscultation bilaterally Cardio: COMMON NORMALS: regular rhythm and No murmurs present (Cardio) RATE: tachycardic RHYTHM: regular rhythm GI: COMMON NORMALS: Normal to inspection, nondistended, normoactive bowel sounds present, Soft to palpation, non-tender and no masses PALPATION: Yes Soft to palpation Extremity: COMMON NORMALS: normal to inspection and full ROM Neuro: COMMON NORMALS: negative for patient oriented x3 OTHER: Actively seizing Psych: COMMON NORMALS: negative for mental status grossly normal Skin: COMMON NORMALS: no rashes or lesions noted and no wounds GENERAL SKIN EXAM: no rashes or lesions noted Course Vital Signs: Vital signs: Vital Signs Pulse Rate 149 H 06/10/22 23:07 Respiratory Rate 16 06/10/22 23:25 Blood Pressure 151/88 06/10/22 23:07 Pulse Oximetry 98 06/10/22 23:07 Oxygen Delivery Me thod 06/10/22 23:07 Oxygen Flow Rate 100 06/10/22 22:45 Fraction of Inspir ed Oxygen 100 06/10/22 23:25 MDM - Seizure MDM Narrative Medical decision making narrative: Patient presents here with seizure was in status epilepticus had an neisha patient to stop the seizing. I spoke to field coil winder at [facility] will transfer there for higher level of care for continuous EEG Lab Data Result diagrams: 06/10/22 22:54 06/10/22 22:54 Labs: Laboratory Results WBC 27.6 10^3/uL (4.5-13.0) H 06/10/22 22:54 RBC 5.02 10^6/uL (4.1-5.3) 06/10/22 22:54 Hgb 12.6 g/dL (11.7-16.6) 06/10/22 22:54 Hct 45.2 % (42.0-52.0) 06/10/22 22:54 MCV 90.0 fl (80-94) 06/10/22 22:54 MCH 25.1 pg (28.0-34.0) L 06/10/22 22:54 MCHC 27.9 g/dL (30.0-36.0) L 06/10/22 22:54 RDW 16.2 % (12.1-15.1) H 06/10/22 22:54 Plt Count 574 10^3/cmm (130-400) H 06/10/22 22:54 MPV 8.8 fL (7.4-10.4) 06/10/22 22:54 Neut % (Auto) 35.5 % 06/10/22 22:54 Lymph % (Auto) 51.5 % 06/10/22 22:54 [place] % (Auto) 8.3 % 06/10/22 22:54 Eos % (Auto) 0.9 % 06/10/22 22:54 Baso % (Auto) 0.5 % 06/10/22 22:54 Neut # (Auto) 9.78 10^3/uL (1.8-8.0) H 06/10/22 22:54 Lymph # (Auto) 14.2 10^3/uL (1.5-6.5) H 06/10/22 22:54 [place] # (Auto) 2.3 10^3/uL (0.2-0.9) H 06/10/22 22:54 Eos # (Auto) 0.3 10^3/uL (0.0-0.8) 06/10/22 22:54 Baso # (Auto) 0.2 10^3/uL (0.0-0.1) H 06/10/22 22:54 Nucleated RBC % (auto) 0 % 06/10/22 22:54 Nucleated RBCs # 0.0 /100WBC 06/10/22 22:54 Specimen Type Arterial 06/10/22 23:11 Sample Site Radial, right 06/10/22 23:11 ABG pH 7.10 (7.35-7.45) L* 06/10/22 23:11 ABG pCO2 53.7 mmHg (35-45) H 06/10/22 23:11 ABG pO2 236.0 mmHg (80.0-100.0) H 06/10/22 23:11 ABG HCO3 16.7 mmol/L (22-26) L 06/10/22 23:11 ABG O2 Saturation 99.6 06/10/22 23:11 ABG Base Excess -12.9 mmol/L (-2.0-2.0) L 06/10/22 23:11 [place] Test Pos 06/10/22 23:11 A-a O2 Gradient 53.0 mmHg (5-10) H 06/10/22 23:11 Hematocrit 37.5 % (42-52) L 06/10/22 23:11 Hgb O2 Saturation 97.8 % (95-100) 06/10/22 23:11 Carboxyhemoglobin 0.7 %THgb (0.4-20.1) 06/10/22 23:11 Methemoglobin 1.1 % (0.4-1.5) 06/10/22 23:11 Total Hemoglobin 12.2 g/dL (14-18) L 06/10/22 23:11 Sodium 141.0 mmol/L (131-143) 06/10/22 23:11 Potassium 3.9 mmol/L (3.5-5.0) 06/10/22 23:11 Glucose 167.0 mg/dL (70-115) H 06/10/22 23:11 Ionized Calcium 1.3 mmol/L (1.1-1.4) 06/10/22 23:11 O2 Delivery Device Vent 06/10/22 23:11 FiO2 100.0 % 06/10/22 23:11 PEEP 5.0 cmH20 06/10/22 23:11 Business Intelligence Engineer ID [place] 06/10/22 23:11 Sodium 143 mmol/L (136-145) 06/10/22 22:54 Potassium 4.1 mmol/L (3.5-5.1) 06/10/22 22:54 Chloride 100 mmol/L (98-107) 06/10/22 22:54 BUN 14 mg/dL (6-20) 06/10/22 22:54 Creatinine 1.2 mg/dL (0.7-1.2) 06/10/22 22:54 Total Bilirubin 0.2 mg/dL (0.15-1.2) 06/10/22 22:54 AST 31 U/L (0-40) 06/10/22 22:54 ALT 26 U/L (0-41) 06/10/22 22:54 Alkaline Phosphatase 121 U/L (40-130) 06/10/22 22:54 Total Protein 8.1 g/dL (6.6-8.7) 06/10/22 22:54 Albumin 4.8 g/dL (3.5-5.2) 06/10/22 22:54 Globulin 3.3 g/dL (1.3-4.6) 06/10/22 22:54 Urine Opiates Screen Negative ng/mL (Negative) 06/10/22 23:15 Ur Barbiturates Screen Negative ng/mL (Negative) 06/10/22 23:15 Ur Phencyclidine Scrn Negative ng/mL (Negative) 06/10/22 23:15 Ur Amphetamines Screen Negative ng/mL (Negative) 06/10/22 23:15 U Benzodiazepines Scrn Negative ng/mL (Negative) 06/10/22 23:15 Urine Cocaine Screen Negative ng/mL (Negative) 06/10/22 23:15 U Marijuana (THC) Screen Negative ng/mL (Negative) 06/10/22 23:15 EKG Data EKG 1: Attestation: I personally reviewed and interpreted this EKG as follows: EKG interpretation date: 06/10/22 EKG interpretation time: 23:08 Interpretation: snus tach hr [address] or t wave abnormalities qrs 93 qtc 358 Critical Care Time Critical Care Time: Critical Care Time: Yes Total Critical Care Time: 40 Attestation: The high probability of a clinically significant, sudden or life threatening deterioration of the patient's neuro system(s) required my full and direct attention, intervention and personal management. The critical care time is as shown. This time is in addition to time spent performing any reported procedures but includes the following: [x] Data and vital sign review and interpretation [x] Patient assessment, examination and intervention [x] Documentation [x] Medication orders and management Discharge Plan Discharge Patient Disposition: Xfer Short-Term Hosp Clinical Impression: Status epilepticus Condition: Stable Referrals: Roxann Martinez MD [Primary Care Provider] - Coding Level of Care Code ED Full Roll Inspector for Chg Fwd Exam Comprehensive
[2022-06-10] MEDS: propofol 1,000 MG/100 ML INJ 14.2 MG (23:05)
[2022-06-10 23:07] VITALS: BP 151/88; PULSE 149; RESP 19; O2SAT 98
[2022-06-10 23:09] VITALS: RESP 16
[2022-06-10 23:18] LABS: Basophils # 0.2 10^3/uL (0.0-0.1); Basophils % 0.5 %; Eosinophils # 0.3 10^3/uL (0.0-0.8); Eosinophils % 0.9 %; Hematocrit 45.2 % (42.0-52.0); Hemoglobin 12.6 g/dL (11.7-16.6); Lymphocytes # 14.2 10^3/uL (1.5-6.5); Lymphocytes % 51.5 %; Mean Corpuscular HGB Conc 27.9 g/dL (30.0-36.0); Mean Corpuscular Hemoglobin 25.1 pg (28.0-34.0); Mean Platelet Volume 8.8 fL (7.4-10.4); Monocytes # 2.3 10^3/uL (0.2-0.9); Monocytes % 8.3 %; Neutrophils # 9.78 10^3/uL (1.8-8.0); Neutrophils % 35.5 %; Nucleated Red Blood Cells % 0 %; Platelet Count 574 10^3/cmm (130-400); Red Blood Count 5.02 10^6/uL (4.1-5.3); Red Cell Distribution Width 16.2 % (12.1-15.1); White Blood Count 27.6 10^3/uL (4.5-13.0)
[2022-06-10 23:22] LABS: ABG PCO2 53.7 mmHg (35-45); Arterial Blood Gas Hematocrit 37.5 % (42-52); Base Excess ABG -12.9 mmol/L (-2.0-2.0); Blood Gas Allen Test Pos; Blood Gas Operator Identificat WALCI; Blood Gas Sample Site Radial, right; Blood Gas Sample Type Arterial; Carboxyhemoglobin 0.7 %THgb (0.4-20.1); HCO3 ABG 16.7 mmol/L (22-26); HGB O2 Sat 97.8 % (95-100); Ionized Calcium Level - ABG 1.3 mmol/L (1.1-1.4); Methemoglobin 1.1 % (0.4-1.5); Oxygen Device VENT; Oxygen Saturation ABG 99.6; Potassium Level - ABG 3.9 mmol/L (3.5-5.0); Total Hemoglobin 12.2 g/dL (14-18)
[2022-06-10 23:25] VITALS: RESP 16
[2022-06-10] MEDS: sodium chloride 0.9% 1,000 ML 999 ML IV ×2 (23:30→23:52)
[2022-06-10 23:32] LABS: Amphetamines Screen Urine Negative (Negative); Barbiturates Screen Urine Negative (Negative); Benzodiazepines Screen Urine Negative (Negative); Cocaine Screen Urine Negative (Negative); Opiate Screen Urine Negative (Negative); PCP Screen Urine Negative (Negative); THC Screen Urine Negative (Negative)
[2022-06-10 23:42] LABS: Alanine Aminotransferase 26 U/L (0-41); Albumin Level 4.8 g/dL (3.5-5.2); Alkaline Phosphatase 121 U/L (40-130); Anion Gap 31.1 (5-19); Aspartate Amino Transferase 31 U/L (0-40); Blood Urea Nitrogen 14 mg/dL (6-20); Calcium 10.6 mg/dL (8.5-10.5); Carbon Dioxide 16 mmol/L (22-29); Chloride 100 mmol/L (98-107); Globulin 3.3 g/dL (1.3-4.6); Glucose 192 mg/dL (65-115); Osmolality Calculated 302 mOsm/kg (285-295); Potassium 4.1 mmol/L (3.5-5.1); Sodium 143 mmol/L (136-145); Total Bilirubin 0.2 mg/dL (0.15-1.2); Total Protein 8.1 g/dL (6.6-8.7)
[2022-06-11] VITALS: BP 143/113; PULSE 118; RESP 19; O2SAT 97
[2022-06-11 00:20] VITALS: BP 134/108; PULSE 117; RESP 18; O2SAT 100
[2022-06-11 00:30] VITALS: BP 111/67; PULSE 108; RESP 18; O2SAT 100
[2022-06-11 00:58] VITALS: BP 126/80; PULSE 109; RESP 19; O2SAT 99
== END 2022-06-11 01:59 | disposition short-term general hospital (02) ==
PROVIDERS: Emergency Provider Emergency Medicine; PCP Pediatrics Adolescent Medicine
DX: G40.901 Epilepsy, unspecified, not intractable, with status epilepticus (principal); F84.0 Autistic disorder
CPT/HCPCS: 36600; 51702; 70450; 71045; 80051; 80053; 80306; 82330; 82805; 85025; 93005; 94002; 94799; 96374; 99291; 99292; J1953; J2250; J2704; J3490; J7030

== ENCOUNTER 2022-09-22 22:53 | Emergency (ER) | payer BC, MEDICAID, SELFPAY ==
[2022-09-22 23:10] VITALS: BP 185/114; PULSE 160; RESP 25; TEMP 37.2; O2SAT 96; BMI 31.1
[2022-09-22] MEDS: midazolam 1 mg/mL INJ 2 mL 2 MG IVP (23:15)
[2022-09-22 23:17] VITALS: BP 176/95; PULSE 158; RESP 18; O2SAT 95
[2022-09-22] MEDS: sodium chloride 0.9% 1,000 ML 999 ML IV (23:19)
[2022-09-22] MEDS: midazolam 1 mg/mL INJ 2 mL 8 MG IVP (23:19)
--- NOTE | 2022-09-22 23:22 | W.ED.SEIZURE ---
Documented by User: QUIRINO Jose 09/23/22 01:40 HPI - Seizure General: Chief Complaint: Seizure Stated Complaint: SEIZURE Time Seen by Provider: 09/22/22 22:56 History of Present Illness: HPI Narrative: 21-year-old male patient comes in today for complaints of seizure activity at home. EMS reported no type of seizure activity on their arrival. Patient had no corneal reflex on my evaluation. Patient is a nonverbal autistic patient. Mother reported no fever or signs of illness. Patient in May had to be intubated and transferred to [facility] where his Keppra was increased to 750 to 1000 mg twice a day. Seizure History: Yes Review of Systems Neuro: Reports: seizure-like activity [facility] ED PFSH: Medical History Allergic rhinitis Anxiety Autism disorder Epilepsy Managed by Dr. Casanova Generalized seizure Hydrocele Noted May 2019. Decreased in size by report July 2019 and continued report May 2022. Incontinence of feces Pneumonia Surgical History History of tonsillectomy and adenoidectomy Hx of myringotomy Family History Other CAD (coronary artery disease) Cancer Lung disease Migraines, neuralgic Social History Smoking and tobacco status: never smoked Physical Exam Const: COMMON NORMALS: alert HENMT: COMMON NORMALS: normocephalic HEAD & SCALP: normocephalic Neck/C-Spine: COMMON NORMALS: full ROM Chest: COMMONS NORMALS: normal palpation of entire chest wall Resp: COMMON NORMALS: No use of accessory muscles Cardio: RATE: tachycardic GI: COMMON NORMALS: Soft to palpation PALPATION: Yes Soft to palpation Extremity: COMMON NORMALS: no pedal edema Neuro: SENSORIUM/ORIENTATION: Yes alert Skin: NARRATIVE SKIN EXAM: Mottling in lower extremities Course ED course: 2309, patient was administered 10 mg of Versed iv. 2319 patient continues to be an seizure event. Reviewed with Dr. Cross who assumed care of patient. Vital Signs: Vital signs: Vital Signs Temperature 99.1 F 09/23/22 00:56 Pulse Rate 123 H 09/23/22 01:18 Respiratory Rate 26 H 09/23/22 01:18 Blood Pressure 127/79 09/23/22 01:18 Pulse Oximetry 92 09/23/22 01:18 Oxygen Delivery Me thod 09/23/22 01:18 Oxygen Flow Rate 5 09/23/22 00:01 MDM - Seizure MDM Narrative Medical decision making narrative: Patient was brought in by EMS for concerns of seizure type activity. EMS reported that patient had full tonic-clonic episode of seizure but had resolved on their arrival. Patient was brought into the ER and remained unresponsive with no corneal reflex. IV access was obtained and patient was given 10 mg of Versed. Reassessment after 5 minutes patient remained in seizure activity and Dr. Cross was consulted and assumed care of patient. Lab Data 09/22/22 23:46 09/22/22 23:46 Labs: Radiology Impressions Chest X-Ray 09/22/22 23:23 IMPRESSION: No evidence of active cardiopulmonary disease. Laboratory Results WBC 9.9 10^3/uL (4.5-13.0) 09/22/22 23:46 RBC 4.47 10^6/uL (4.1-5.3) 09/22/22 23:46 Hgb 12.2 g/dL (11.7-16.6) 09/22/22 23:46 Hct 40.0 % (42.0-52.0) L 09/22/22 23:46 MCV 89.5 fl (80-94) 09/22/22 23:46 MCH 27.3 pg (28.0-34.0) L 09/22/22 23:46 MCHC 30.5 g/dL (30.0-36.0) 09/22/22 23:46 RDW 17.4 % (12.1-15.1) H 09/22/22 23:46 Plt Count 368 10^3/cmm (130-400) 09/22/22 23:46 MPV 8.4 fL (7.4-10.4) 09/22/22 23:46 Neut % (Auto) 86.2 % 09/22/22 23:46 Lymph % (Auto) 7.2 % 09/22/22 23:46 [place] % (Auto) 5.2 % 09/22/22 23:46 Eos % (Auto) 0.5 % 09/22/22 23:46 Baso % (Auto) 0.1 % 09/22/22 23:46 Neut # (Auto) 8.54 10^3/uL (1.8-8.0) H 09/22/22 23:46 Lymph # (Auto) 0.7 10^3/uL (1.5-6.5) L 09/22/22 23:46 [place] # (Auto) 0.5 10^3/uL (0.2-0.9) 09/22/22 23:46 Eos # (Auto) 0.1 10^3/uL (0.0-0.8) 09/22/22 23:46 Baso # (Auto) 0.0 10^3/uL (0.0-0.1) 09/22/22 23:46 Nucleated RBC % (auto) 0 % 09/22/22 23:46 Nucleated RBCs # 0.0 /100WBC 09/22/22 23:46 Sodium 141 mmol/L (136-145) 09/22/22 23:46 Potassium 4.2 mmol/L (3.5-5.1) 09/22/22 23:46 Chloride 103 mmol/L (98-107) 09/22/22 23:46 Carbon Dioxide 26 mmol/L (22-29) 09/22/22 23:46 Anion Gap 16.2 (5-19) 09/22/22 23:46 BUN 11 mg/dL (6-20) 09/22/22 23:46 Creatinine 0.8 mg/dL (0.7-1.2) 09/22/22 23:46 GFR Calculation 124.5 mL/min (90-130) 09/22/22 23:46 Glucose 124 mg/dL (65-115) H 09/22/22 23:46 POC Glucose 134 mg/dL (70-110) H 09/22/22 23:29 Calculated Osmolality 293 mOsm/kg (285-295) 09/22/22 23:46 Calcium 9.1 mg/dL (8.5-10.5) 09/22/22 23:46 Total Bilirubin 0.3 mg/dL (0.15-1.2) 09/22/22 23:46 AST 52 U/L (0-40) H 09/22/22 23:46 ALT 48 U/L (0-41) H 09/22/22 23:46 Alkaline Phosphatase 81 U/L (40-130) 09/22/22 23:46 Total Protein 6.9 g/dL (6.6-8.7) 09/22/22 23:46 Albumin 4.3 g/dL (3.5-5.2) 09/22/22 23:46 Globulin 2.6 g/dL (1.3-4.6) 09/22/22 23:46 Influenza Type A Ag negative (Negative) 09/22/22 23:40 Influenza Type B Ag negative (Negative) 09/22/22 23:40 Critical Care Time Critical Care Time: Critical Care Time: Yes Total Critical Care Time: 30 Attestation: Patient came in and status epilepticus. Patient required monitoring, repeat assessment and medication treatment for 30 minutes until seizures were controlled. Discharge Plan Discharge Patient Disposition: Home Clinical Impression: Generalized seizure Condition: Stable Prescriptions: No Action sertraline 100 mg tablet 150 mg PO DAILY clonidine HCl 0.2 mg tablet 0.2 mg PO .q evening Qty: 30 2RF clotrimazole 1 % cream 1 applic topical TID 7 Days Qty: 30 2RF melatonin 1 mg Tablet 1 mg PO BEDTIME PRN (Reason: Insomnia) hydroxyzine HCl 25 mg tablet 25 mg PO TID PRN (Reason: Itching) Rx Instructions: TAKE 1 TABLET BY MOUTH THREE TIMES A DAY NEEDED FOR ITCHING amoxicillin-pot clavulanate 875-125 mg Tablet 1 tab PO BID Qty: 10 0RF levetiracetam 750 mg tablet 750 mg PO BID Qty: 60 3RF Rx Instructions: TAKE 1 TABLET BY MOUTH TWICE A DAY Discharge Orders: Discharge ED (Routine); Ordered 09/23/22 Ordered By: Zaida Cross Referrals: Roxann Martinez MD [Primary Care Provider] - 1-3 days Discharge Diet: Advance as tolerated Discharge Activity: Resume usual activity Patient Instructions: Recurrent Seizures in Adults (ED) Coding Level of Care Code ED Car Pick Up Driver for Chg Fwd Exam Comprehensive Documented by User: Zaida Cross MD 09/23/22 03:17 HPI - Seizure General: Chief Complaint: Seizure Stated Complaint: SEIZURE Time Seen by Provider: 09/22/22 22:56 Review of Systems General: Reports: ROS unobtainable due to mental status PFSH ED PFSH: Medical History Allergic rhinitis Anxiety Autism disorder Epilepsy Managed by Dr. Casanova Generalized seizure Hydrocele Noted May 2019. Decreased in size by report July 2019 and continued report May 2022. Incontinence of feces Pneumonia Surgical History History of tonsillectomy and adenoidectomy Hx of myringotomy Family History Other CAD (coronary artery disease) Cancer Lung disease Migraines, neuralgic Social History Smoking and tobacco status: never smoked Course Vital Signs: Vital signs: Vital Signs Temperature 99.1 F 09/23/22 00:56 Pulse Rate 123 H 09/23/22 01:18 Respiratory Rate 26 H 09/23/22 01:18 Blood Pressure 127/79 09/23/22 01:18 Pulse Oximetry 92 09/23/22 01:18 Oxygen Delivery Me thod 09/23/22 01:18 Oxygen Flow Rate 5 09/23/22 00:01 MDM - Seizure MDM Narrative Medical decision making narrative: Patient was brought in by EMS for concerns of seizure type activity. EMS reported that patient had full tonic-clonic episode of seizure but had resolved on their arrival. Patient was brought into the ER and remained unresponsive with no corneal reflex. IV access was obtained and patient was given 10 mg of Versed. Reassessment after 5 minutes patient remained in seizure activity and Dr. Cross was consulted and assumed care of patient. Patient presents here with seizure is likely the cause of his fever as well he is now awake and alert and his baseline blood works normal he stable for discharge. He is to follow-up with PCP and return if worsening. Lab Data 09/22/22 23:46 09/22/22 23:46 Labs: Radiology Impressions Chest X-Ray 09/22/22 23:23 IMPRESSION: No evidence of active cardiopulmonary disease. Laboratory Results WBC 9.9 10^3/uL (4.5-13.0) 09/22/22 23:46 RBC 4.47 10^6/uL (4.1-5.3) 09/22/22 23:46 Hgb 12.2 g/dL (11.7-16.6) 09/22/22 23:46 Hct 40.0 % (42.0-52.0) L 09/22/22 23:46 MCV 89.5 fl (80-94) 09/22/22 23:46 MCH 27.3 pg (28.0-34.0) L 09/22/22 23:46 MCHC 30.5 g/dL (30.0-36.0) 09/22/22 23:46 RDW 17.4 % (12.1-15.1) H 09/22/22 23:46 Plt Count 368 10^3/cmm (130-400) 09/22/22 23:46 MPV 8.4 fL (7.4-10.4) 09/22/22 23:46 Neut % (Auto) 86.2 % 09/22/22 23:46 Lymph % (Auto) 7.2 % 09/22/22 23:46 [place] % (Auto) 5.2 % 09/22/22 23:46 Eos % (Auto) 0.5 % 09/22/22 23:46 Baso % (Auto) 0.1 % 09/22/22 23:46 Neut # (Auto) 8.54 10^3/uL (1.8-8.0) H 09/22/22 23:46 Lymph # (Auto) 0.7 10^3/uL (1.5-6.5) L 09/22/22 23:46 [place] # (Auto) 0.5 10^3/uL (0.2-0.9) 09/22/22 23:46 Eos # (Auto) 0.1 10^3/uL (0.0-0.8) 09/22/22 23:46 Baso # (Auto) 0.0 10^3/uL (0.0-0.1) 09/22/22 23:46 Nucleated RBC % (auto) 0 % 09/22/22 23:46 Nucleated RBCs # 0.0 /100WBC 09/22/22 23:46 Sodium 141 mmol/L (136-145) 09/22/22 23:46 Potassium 4.2 mmol/L (3.5-5.1) 09/22/22 23:46 Chloride 103 mmol/L (98-107) 09/22/22 23:46 Carbon Dioxide 26 mmol/L (22-29) 09/22/22 23:46 Anion Gap 16.2 (5-19) 09/22/22 23:46 BUN 11 mg/dL (6-20) 09/22/22 23:46 Creatinine 0.8 mg/dL (0.7-1.2) 09/22/22 23:46 GFR Calculation 124.5 mL/min (90-130) 09/22/22 23:46 Glucose 124 mg/dL (65-115) H 09/22/22 23:46 POC Glucose 134 mg/dL (70-110) H 09/22/22 23:29 Calculated Osmolality 293 mOsm/kg (285-295) 09/22/22 23:46 Calcium 9.1 mg/dL (8.5-10.5) 09/22/22 23:46 Total Bilirubin 0.3 mg/dL (0.15-1.2) 09/22/22 23:46 AST 52 U/L (0-40) H 09/22/22 23:46 ALT 48 U/L (0-41) H 09/22/22 23:46 Alkaline Phosphatase 81 U/L (40-130) 09/22/22 23:46 Total Protein 6.9 g/dL (6.6-8.7) 09/22/22 23:46 Albumin 4.3 g/dL (3.5-5.2) 09/22/22 23:46 Globulin 2.6 g/dL (1.3-4.6) 09/22/22 23:46 Influenza Type A Ag negative (Negative) 09/22/22 23:40 Influenza Type B Ag negative (Negative) 09/22/22 23:40 Discharge Plan Discharge Patient Disposition: Home Clinical Impression: Generalized seizure Condition: Stable Prescriptions: No Action sertraline 100 mg tablet 150 mg PO DAILY clonidine HCl 0.2 mg tablet 0.2 mg PO .q evening Qty: 30 2RF clotrimazole 1 % cream 1 applic topical TID 7 Days Qty: 30 2RF melatonin 1 mg Tablet 1 mg PO BEDTIME PRN (Reason: Insomnia) hydroxyzine HCl 25 mg tablet 25 mg PO TID PRN (Reason: Itching) Rx Instructions: TAKE 1 TABLET BY MOUTH THREE TIMES A DAY NEEDED FOR ITCHING amoxicillin-pot clavulanate 875-125 mg Tablet 1 tab PO BID Qty: 10 0RF levetiracetam 750 mg tablet 750 mg PO BID Qty: 60 3RF Rx Instructions: TAKE 1 TABLET BY MOUTH TWICE A DAY Discharge Orders: Discharge ED (Routine); Ordered 09/23/22 Ordered By: Zaida Cross Referrals: Roxann Martinez MD [Primary Care Provider] - 1-3 days Discharge Diet: Advance as tolerated Discharge Activity: Resume usual activity Patient Instructions: Recurrent Seizures in Adults (ED) Coding Level of Care Code ED Car Pick Up Driver for Irene Fwd Exam Comprehensive
--- NOTE | 2022-09-22 23:23 | XRR_ITS ---
PROCEDURE INFORMATION: Exam: XR Chest Exam date and time: 09/23/2022 12:22 AM Age: 21 years old Clinical indication: Patient HX: Witnessed seizure by mother lasting several minutes. History of seizure disorder. Patient non verbal upon exam. ; Additional info: Status epil TECHNIQUE: Imaging protocol: Radiologic exam of the chest. Views: 1 view. COMPARISON: CR (CHEST, ) 06/10/2022 10:59 PM FINDINGS: Lungs: Mildly increased lung markings, likely secondary to low lung volumes. No consolidation. Pleural spaces: Unremarkable. No pleural effusion. No pneumothorax. Heart/Mediastinum: Stable cardiomediastinal silhouette. Bones/joints: Unremarkable. XR/XR chest 1V portable [id number] IMPRESSION: No evidence of active cardiopulmonary disease.
[2022-09-22 23:26] VITALS: TEMP 38.9
[2022-09-22 23:32] LABS: Glucose Point of Care 134 mg/dL (70-110)
[2022-09-22] MEDS: acetaminophen 650 mg Supp PR (23:36)
[2022-09-22 23:37] VITALS: BP 129/85; PULSE 139; RESP 26; O2SAT 95
[2022-09-22 23:50] VITALS: BP 143/68; PULSE 146; RESP 25; O2SAT 95
[2022-09-22 23:57] LABS: Basophils % 0.1 %; Eosinophils # 0.1 10^3/uL (0.0-0.8); Eosinophils % 0.5 %; Hemoglobin 12.2 g/dL (11.7-16.6); Lymphocytes # 0.7 10^3/uL (1.5-6.5); Lymphocytes % 7.2 %; Mean Corpuscular HGB Conc 30.5 g/dL (30.0-36.0); Mean Corpuscular Hemoglobin 27.3 pg (28.0-34.0); Mean Corpuscular Volume 89.5 fl (80-94); Mean Platelet Volume 8.4 fL (7.4-10.4); Monocytes # 0.5 10^3/uL (0.2-0.9); Monocytes % 5.2 %; Neutrophils # 8.54 10^3/uL (1.8-8.0); Neutrophils % 86.2 %; Nucleated Red Blood Cells % 0 %; Platelet Count 368 10^3/cmm (130-400); Red Blood Count 4.47 10^6/uL (4.1-5.3); Red Cell Distribution Width 17.4 % (12.1-15.1); White Blood Count 9.9 10^3/uL (4.5-13.0)
[2022-09-23 00:01] VITALS: BP 108/84; PULSE 141; RESP 20; O2SAT 99
[2022-09-23 00:15] VITALS: BP 118/40; PULSE 129; RESP 22; O2SAT 95
[2022-09-23 00:16] LABS: Alanine Aminotransferase 48 U/L (0-41); Albumin Level 4.3 g/dL (3.5-5.2); Alkaline Phosphatase 81 U/L (40-130); Anion Gap 16.2 (5-19); Aspartate Amino Transferase 52 U/L (0-40); Blood Urea Nitrogen 11 mg/dL (6-20); Calcium 9.1 mg/dL (8.5-10.5); Carbon Dioxide 26 mmol/L (22-29); Chloride 103 mmol/L (98-107); Globulin 2.6 g/dL (1.3-4.6); Glomerular Filtration Rate 124.5 mL/min (90-130); Glucose 124 mg/dL (65-115); Osmolality Calculated 293 mOsm/kg (285-295); Potassium 4.2 mmol/L (3.5-5.1); Sodium 141 mmol/L (136-145); Total Bilirubin 0.3 mg/dL (0.15-1.2); Total Protein 6.9 g/dL (6.6-8.7)
[2022-09-23 00:28] LABS: Influenza A by IFA negative (Negative); Influenza B by IFA negative (Negative)
[2022-09-23 00:56] VITALS: BP 111/61; PULSE 124; RESP 26; TEMP 37.3; O2SAT 91
[2022-09-23 01:18] VITALS: BP 127/79; PULSE 123; RESP 26; O2SAT 92
[2022-09-24 10:34] LABS: Levetiracetam Immunoassy 52.7 mcg/mL (6.0-46.0)
== END 2022-09-23 03:12 | disposition home or self-care (01) ==
PROVIDERS: Nurse Practitioner Family; Emergency Provider Emergency Medicine; PCP Pediatrics Adolescent Medicine
DX: G40.409 Other generalized epilepsy and epileptic syndromes, not intractable, without status epilepticus (principal); F84.0 Autistic disorder
CPT/HCPCS: 36416; 71045; 80053; 80177; 82962; 85025; 87804; 96365; 96375; 99285; J1953; J2250; J7030

== ENCOUNTER 2023-03-16 14:34 | Emergency (ER) | payer MEDICARE, MEDICAID, SELFPAY ==
[2023-03-16 14:53] VITALS: PULSE 109; RESP 18; O2SAT 96; BMI 27.6
--- NOTE | 2023-03-16 15:11 | CTR_ITS ---
PROCEDURE INFORMATION: Exam: CT Abdomen And Pelvis Without Contrast Exam date and time: 03/16/2023 3:17 PM Age: 22 years old Clinical indication: Abdominal pain; Flank; Right lower quadrant (rlq); Additional info: Right lower quad TECHNIQUE: Imaging protocol: Computed tomography of the abdomen and pelvis without contrast. Radiation optimization: All CT scans at this facility use at least one of these dose optimization techniques: automated exposure control; mA and/or kV adjustment per patient size (includes targeted exams where dose is matched to clinical indication); or iterative reconstruction. REPORTING DATA: Count of CT and Cardiac NM exams in prior 12 months: This patient has received 2 known CTs and 0 known cardiac nuclear medicine studies in the 12 months prior to the current study. COMPARISON: US scrotum [id number] 03/20/2019 7:11 PM RADIATION DOSE METRICS: Total DLP (mGy-cm): 989 FINDINGS: Liver: Normal. No mass. Gallbladder and bile ducts: Normal. No calcified stones. No ductal dilation. Pancreas: Normal. No ductal dilation. Spleen: Normal. No splenomegaly. Adrenal glands: Normal. No mass. Kidneys and ureters: Normal. No hydronephrosis. Stomach and bowel: Large colonic stool burden with distended stool-filled rectum to 7.8 cm. No obstruction. No mucosal thickening. Appendix: Unremarkable appearance of the appendix. Intraperitoneal space: Unremarkable. No free air. No significant fluid collection. Vasculature: Unremarkable. No abdominal aortic aneurysm. Lymph nodes: Unremarkable. No enlarged lymph nodes. Urinary bladder: Unremarkable as visualized. Reproductive: Suspected partially visualized right-sided hydrocele. Bones/joints: No acute fracture. Soft tissues: Unremarkable. CT/CT abdomen pelvis wo con [id number] IMPRESSION: 1. Large colonic stool burden with distended stool-filled rectum up to nearly 8 cm. 2. Suspected partially visualized right-sided hydrocele.
--- NOTE | 2023-03-16 15:12 | ED_ITS ---
HPI - Abdominal Pain General: Chief Complaint: Abdominal Pain Stated Complaint: abd pain Time Seen by Provider: 03/16/23 15:00 Source: family Mode of arrival: ambulatory Limitations: language barrier History of Present Illness: This patient was referred from pediatrics for further evaluation. His history is obtained from his mother as the patient is autistic and is essentially nonverbal for any meaningful information. She states he is not been himself over the past week or so with intermittent vomiting and decreased appetite. Is not had stool up until approximately 2 days ago and then began having stooling albeit less than usual but has been eating less than usual. Mother states he has been drinking fluids and urinating relatively normally. Allegedly at the assistant professor nurse education's office today he was being evaluated and seemed display some discomfort with palpation of his right lower abdomen and therefore was sent to the emergency department. Mother states he is not had any blood in his stools or blood in his urine as far she can tell. He has not had fever. He has not had any abdominal surgeries. She does relate that he has had some changes in his chronic medications and sometimes that can affect his appetite and/or cause constipation but she is not sure if that is a factor in this current presentation or not MD elicited complaint: abdominal pain Associated Symptoms: Denies fever(s), hematochezia, hematemesis and melena Review of Systems Const: Denies: fever(s) Eyes: Denies: eye discharge ENMT: Denies: odynophagia Resp: Denies: productive cough or non-productive cough GI: Denies: hematemesis, hematochezia or melena : Denies: urinary frequency Musc: Denies: extremity pain or extremity swelling Skin/Breast: Denies: rash Neuro: Denies: seizure-like activity PFSH ED PFSH: Medical History Allergic rhinitis Anxiety Autism disorder Epilepsy Managed by Dr. Casanova Generalized seizure Hydrocele Noted May 2019. Decreased in size by report July 2019 and continued report May 2022. Incontinence of feces Pneumonia Surgical History History of tonsillectomy and adenoidectomy Hx of myringotomy Family History Other CAD (coronary artery disease) Cancer Lung disease Migraines, neuralgic Social History Smoking and tobacco status: never smoked Physical Exam Narrative: EXAM NARRATIVE: The patient's generally cooperative. He makes good eye contact. He is currently nonverbal. Const: COMMON NORMALS: alert GENERAL APPEARANCE: cooperative and comfortable ORIENTATION/CONSCIOUSNESS: Yes awake HENMT: COMMON NORMALS: normocephalic, Normal nasal mucous membranes and turbinates present and moist oral mucous membranes HEAD & SCALP: normocephalic NOSE: Normal nasal mucous membranes and turbinates present Eye: COMMON NORMALS: Equal, round and reactive pupils present, EOMs intact bilaterally and conjunctivae normal CONJUNCTIVA: Yes conjunctivae normal PUPIL: Yes Equal, round and reactive pupils present Neck/C-Spine: COMMON NORMALS: full ROM and no lymphadenopathy Chest: COMMONS NORMALS: normal inspection of the chest Resp: COMMON NORMALS: normal respiratory effort, No retractions, No use of accessory muscles and clear to auscultation bilaterally AUSCULTATION: clear to auscultation bilaterally Cardio: COMMON NORMALS: regular rate, regular rhythm, No murmurs present (Cardio) and Peripheral pulses 2+ throughout RATE: regular rate RHYTHM: regular rhythm PERIPHERAL PULSES: Peripheral pulses 2+ throughout GI: COMMON NORMALS: Soft to palpation, No hepatosplenomegaly present and no masses INSPECTION: Yes normal to inspection AUSCULTATION: Yes Hyperactive bowel sounds present PALPATION: Yes Soft to palpation, Yes Tenderness to palpation present (GI) (He displays some discomfort with right lower quadrant palpation with pushin) and Yes No hepatosplenomegaly present Back/Pelvis: COMMON NORMALS: thoracic and lumbar spine normal to inspection and no thoracic nor lumbar tenderness Extremity: COMMON NORMALS: normal to inspection, full ROM, capillary refill normal and no pedal edema Neuro: COMMON NORMALS: moves all extremities SENSORIUM/ORIENTATION: Yes alert Psych: COMMON NORMALS: cooperative Skin: COMMON NORMALS: no rashes or lesions noted, turgor normal and no jaundice GENERAL SKIN EXAM: no rashes or lesions noted and turgor normal Course Reevaluation(s): Reevaluation #1: Patient was reevaluated and remained stable. No evidence of peritoneal signs or other concerning abdominal findings. Discussed current radiologic findings with patient's family. At this point no evidence to suggest bowel obstruction or other concerning finding and given his current nature with his autism I think it is reasonable for us to try a period of MiraLAX to see if we can get his bowel regimen back to his normal status. We also reviewed the need to return to the emergency department should he develop any worsening symptoms we will consider at that time other therapies to include potential sedation, disimpaction etc. Time: 16:23 Vital Signs: Vital signs: Vital Signs Pulse Rate 109 H 03/16/23 14:53 Respiratory Rate 18 03/16/23 14:53 Pulse Oximetry 96 03/16/23 14:53 Oxygen Delivery Me thod Room Air 03/16/23 14:53 MDM - Abdominal Pain Medical Decision Making ConcernThis patient was brought to the emergency part by family because of about a potential surgical abdomen. He had a history of some abdominal pains intermittently over the past week to week or so with some episodes of vomiting. He started having stools over the last couple of days without any blood in his stools or black tarry stools. He has not had fevers or any other concerning findings per mother. His history is complicated by his autism. He was seen at his primary care office and there was concern about possible right lower quadrant guarding during palpation and therefore sent here. His evaluation here revealed no evidence of peritoneal irritation or peritoneal signs but he was bit more fidgety when palpating his right lower quadrant. It was no masses noted or any other concerning abdominal findings. A CT scan was obtained which revealed increased stool burden with significant amount of stool in his rectum. No evidence of obstruction, appendicitis, or other concerning findings. Reviewed treatment options with mother to include trial of MiraLAX over the next few days as opposed to sedation and rectal evacuation manually. She opted for the former and I think it is reasonable given his current clinical picture he looks very comfortable and he has been stooling and I think a regular regimen of MiraLAX will likely continue to improve his bowel regimen. Apparently medications changes recently have likely been implicated in his current status. Differential Diagnosis Likely abdominal pain Medical Records I reviewed the patient's medical records. Lab Data I reviewed the patient's lab results. Labs/Radiology: Radiology Impressions Abdomen/Pelvis CT 03/16/23 15:11 IMPRESSION: 1. Large colonic stool burden with distended stool-filled rectum up to nearly 8 cm. 2. Suspected partially visualized right-sided hydrocele. Discharge Plan Discharge Patient Disposition: Home Clinical Impression: Constipation Condition: Stable Prescriptions: New Miralax 17 gram/dose powder 4 g PO BID Qty: 238 2RF No Action sertraline 100 mg tablet 150 mg PO DAILY clonidine HCl 0.2 mg tablet 0.2 mg PO .q evening Qty: 30 2RF hydroxyzine HCl 25 mg tablet 25 mg PO TID PRN (Reason: Itching) Qty: 30 1RF Rx Instructions: TAKE 1 TABLET BY MOUTH THREE TIMES A DAY NEEDED FOR allergy/itching pantoprazole 20 mg tablet,delayed release (DR/EC) 20 mg PO DAILY Qty: 30 0RF ondansetron HCl 4 mg tablet 4 mg PO Q6H PRN (Reason: nausea and vomiting) Qty: 10 0RF melatonin 1 mg Tablet 1 mg PO BEDTIME PRN (Reason: Insomnia) levetiracetam 750 mg tablet 750 mg PO BID Qty: 60 3RF Rx Instructions: TAKE 1 TABLET BY MOUTH TWICE A DAY Discharge Orders: Discharge ED (Routine); Ordered 03/16/23 Ordered By: Yung Augustin Referrals: Roxann Martinez MD [Primary Care Provider] - Discharge Diet: Advance as tolerated Discharge Activity: Increase activity as tolerated Patient Instructions: Opioid Safety, Pain Management Activity Restrictions/Additional Instructions: As we discussed there is no evidence of appendicitis, bowel obstruction or other concerning condition at this time. We have recommended starting him on MiraLAX and what ever liquid he will drink. We recommend 2 doses a day for the first several days until he gets good results and then he may back off to 1 dose a day as needed. If he develops fevers, worsening abdominal pain, distention or any other concerns return to this emergency department for reevaluation. Coding Level of Care Code ED Painting Contractor for Irene Galicia
== END 2023-03-16 17:14 | disposition home or self-care (01) ==
PROVIDERS: Emergency Provider Emergency Medicine; PCP Pediatrics Adolescent Medicine
DX: K59.00 Constipation, unspecified (principal); F84.0 Autistic disorder
CPT/HCPCS: 74176; 99284

== ENCOUNTER 2023-04-13 15:24 | Inpatient (IN) | payer MEDICARE, MEDICAID, SELFPAY ==
[2023-04-13] VITALS (10 sets, daily range): BP systolic 90–121; BP diastolic 50–89; PULSE 80–120; RESP 16–20; TEMP 36.3–36.8; O2SAT 86–100
--- NOTE | 2023-04-13 15:55 | W.ED.NAVMDI ---
Documented by User: Steve Bragg MD 04/25/23 07:43 HPI - Nausea/Vomiting/Diarrhea General: Chief complaint: Nausea/Vomiting/Diarrhea Stated complaint: n/v, not eating Time Seen by Provider: 04/13/23 15:55 Limitations: altered mental status History of Present Illness: Mr. Mendoza is a 22-year-old male with complex history including nonverbal autism presenting to the emergency department for generalized illness. He is accompanied by his sister who provides clinical history. He apparently has had essentially 1 month of frequent vomiting that is persisted. He has been evaluated at outside hospital multiple times initially treated for constipation however continues to worsen. Vomits after any p.o. intake and is not hungry or thirsty. Appears to have generalized weakness. Intensity symptoms is moderate to severe. Course has worsened. No other specific changes in health, exacerbating, or alleviating factors identified. Review of Systems General: Reports: ROS unobtainable due to medical condition PFSH ED PFSH: Medical History Allergic rhinitis Anxiety Autism disorder Epilepsy Managed by Dr. Casanova Folic acid deficiency Generalized seizure Hydrocele Noted May 2019. Decreased in size by report July 2019 and continued report May 2022. Incontinence of feces Pneumonia Vitamin B12 deficiency Surgical History History of tonsillectomy and adenoidectomy Hx of myringotomy Family History Other CAD (coronary artery disease) Cancer Lung disease Migraines, neuralgic Social History Smoking and tobacco status: never smoked Alcohol intake: never Substance/Drug Use: never Adopted: No Caregiver/support person: Yes Lives independently: No Physical Exam Const: COMMON NORMALS: alert GENERAL APPEARANCE: cooperative and well developed HENMT: COMMON NORMALS: normocephalic and atraumatic HEAD & SCALP: normocephalic and atraumatic THROAT: posterior oropharynx normal Eye: COMMON NORMALS: conjunctivae normal CONJUNCTIVA: Yes conjunctivae normal SCLERA: sclerae normal Neck/C-Spine: COMMON NORMALS: supple GENERAL: Yes trachea midline Resp: COMMON NORMALS: clear to auscultation bilaterally EFFORT & INSPECTION: Yes able to speak in complete sentences AUSCULTATION: clear to auscultation bilaterally Cardio: COMMON NORMALS: regular rhythm RATE: tachycardic RHYTHM: regular rhythm GI: COMMON NORMALS: Soft to palpation PALPATION: Yes Soft to palpation, Yes Tenderness to palpation present (GI), No Guarding due to palpation present (GI) and No Rigid due to palpation : COMMON NORMALS: Yes normal external exam and Yes Testes normal Extremity: GENERAL: Yes normal exam except as noted and No edema Neuro: COMMON NORMALS: moves all extremities SENSORIUM/ORIENTATION: Yes alert and No Orientation impaired Psych: COMMON NORMALS: mental status grossly normal and Normal thought process present THOUGHT PROCESS: Normal thought process present Course Vital Signs: Vital signs: Vital Signs Temperature 97.6 F 04/20/23 13:10 Pulse Rate 88 04/20/23 13:10 Respiratory Rate 15 04/20/23 13:10 Blood Pressure 110/74 04/20/23 13:10 Pulse Oximetry 98 04/20/23 13:10 Oxygen Delivery Me thod Room Air 04/20/23 11:21 MDM - Nausea/Vomiting/Diarrhea Medical Decision Making 22-year-old male with history of mild autism presenting with continued GI symptoms. Patient somewhat ill on appearance though nontoxic. Limited exam secondary baseline however appears to have some degree of abdominal tenderness. Laboratory studies and imaging as well as symptom treatment ordered. Handed off to Dr. Cross for completion of ED evaluation and disposition. Patient presents here with not eating for weeks had some diarrhea he does have a colitis talking to his caregiver he has not been taking many of his pills either will admit at this time as he not been eating I am concerned he will not take his Cipro Flagyl for the colitis will admit IV antibiotics spoke to hospitalist will admit. Medical Records I reviewed the patient's medical records. Lab Data I reviewed the patient's lab results. 04/20/23 05:24 04/19/23 05:43 Radiology Impressions Chest X-Ray 04/13/23 16:25 IMPRESSION: No acute pulmonary change with prominent levoscoliosis as noted Abdomen/Pelvis CT 04/13/23 16:58 IMPRESSION: 1. Findings consistent with mild segmental colitis involving the transverse colon. Consider C diff colitis. 2. 2 cm cavitating nodule left lower lobe. Recommend dedicated CT chest to exclude other lesions. 3. Large hydrocele within the right scrotal cavity partially visualized. 4. Borderline splenomegaly 5. Enlarging nodular densities that appear to be arising from the skin surface anterior to the pubic bone that should be correlated with clinical exam. COMMENTS: Consistent with the [employer]'s Incidental Findings Committee white paper (J Am Sid Radiol 2018): Any incidental renal lesion less than 1 cm or classified as too small to characterize, or any incidental cystic renal lesion characterized as simple-appearing, is likely benign. No follow-up imaging is recommended for these lesions per consensus recommendations based on imaging criteria. Chest CT 04/14/23 20:25 IMPRESSION: 1. Thick-walled cavitary lesion in the LEFT lower lobe about the inferior hilum measuring 1.8 x 1.9 cm. Additional cavitary lesion in the LEFT lower lobe superior segment posterior medially measuring 1.2 x 1.3 CM. Additional smaller cavitary lesion in the LEFT lower lobe superior segment posterolaterally. Differential considerations in a patient this age include lung abscess due to aspiration, mycobacterial infection, fungal infection, pulmonary infarct, and less likely Rhett's granulomatosis. Recommend correlation with clinical history. 2. Trace LEFT pleural fluid. 3. A few hazy groundglass opacities in the LEFT greater than RIGHT lower lobes. 4. No focal consolidation or pleural fluid. Gallbladder Ultrasound 04/16/23 10:03 IMPRESSION: Mildly distended gallbladder with a moderate amount of sludge. No sonographic evidence of acute cholecystitis. Laboratory Results WBC 7.4 10^3/uL (4.5-13.0) 04/14/23 07:55 RBC 2.19 10^6/uL (4.1-5.3) L 04/14/23 07:55 Hgb 7.8 g/dL (11.7-16.6) L 04/14/23 12:04 Hct 24.2 % (42.0-52.0) L 04/14/23 12:04 MCV 103.7 fl (80-94) H 04/14/23 07:55 MCH 33.8 pg (28.0-34.0) 04/14/23 07:55 MCHC 32.6 g/dL (30.0-36.0) 04/14/23 07:55 RDW 15.8 % (12.1-15.1) H 04/14/23 07:55 Plt Count 135 10^3/cmm (130-400) 04/14/23 07:55 MPV 9.6 fL (7.4-10.4) 04/14/23 07:55 Neut % (Auto) 70.9 % 04/14/23 07:55 Lymph % (Auto) 22.0 % 04/14/23 07:55 Randolph % (Auto) 5.7 % 04/14/23 07:55 Eos % (Auto) 0.7 % 04/14/23 07:55 Baso % (Auto) 0.0 % 04/14/23 07:55 Neut # (Auto) 5.21 10^3/uL (1.8-8.0) 04/14/23 07:55 Lymph # (Auto) 1.6 10^3/uL (1.5-6.5) 04/14/23 07:55 Randolph # (Auto) 0.4 10^3/uL (0.2-0.9) 04/14/23 07:55 Eos # (Auto) 0.1 10^3/uL (0.0-0.8) 04/14/23 07:55 Baso # (Auto) 0.0 10^3/uL (0.0-0.1) 04/14/23 07:55 Nucleated RBC % (auto) 0.4 % 04/14/23 07:55 Nucleated RBCs # 0.0 /100WBC 04/14/23 07:55 Sodium 136 mmol/L (136-145) 04/14/23 07:55 Potassium 2.4 mmol/L (3.5-5.1) L* D 04/14/23 07:55 Chloride 94 mmol/L (98-107) L 04/14/23 07:55 Carbon Dioxide 31 mmol/L (22-29) H 04/14/23 07:55 Anion Gap 13.4 (5-19) 04/14/23 07:55 BUN 12 mg/dL (6-20) 04/14/23 07:55 Creatinine 0.8 mg/dL (0.7-1.2) 04/14/23 07:55 GFR Calculation 123.2 mL/min (90-130) 04/14/23 07:55 Glucose 110 mg/dL (65-115) 04/14/23 07:55 Calculated Osmolality 282 mOsm/kg (285-295) L 04/14/23 07:55 Lactic Acid 2.1 mmol/L (0.5-2.2) 04/13/23 16:57 Lactic Acid (Sepsis) 2.4 mmol/L (0.5-2.2) H 04/13/23 19:35 Lactate 1.2 mmol/L (0.5-2.2) 04/14/23 08:25 Calcium 8.0 mg/dL (8.5-10.5) L 04/14/23 07:55 Phosphorus 3.1 mg/dL (2.5-4.5) 04/14/23 07:55 Magnesium 2.3 mg/dL (1.7-2.3) 04/14/23 07:55 Total Bilirubin 2.4 mg/dL (0.15-1.2) H 04/14/23 07:55 Direct Bilirubin 1.20 mg/dL (0.00-0.30) H 04/14/23 07:55 Indirect Bilirubin 1.20 04/14/23 07:55 AST 19 U/L (0-40) 04/13/23 16:57 ALT 51 U/L (0-41) H 04/13/23 16:57 Alkaline Phosphatase 94 U/L (40-130) 04/13/23 16:57 C-Reactive Protein 10.9 mg/L (0.0-4.9) H 04/14/23 07:55 Total Protein 7.4 g/dL (6.6-8.7) 04/13/23 16:57 Albumin 4.3 g/dL (3.5-5.2) 04/13/23 16:57 Globulin 3.1 g/dL (1.3-4.6) 04/13/23 16:57 Lipase 50 U/L (13-60) 04/13/23 16:57 Vitamin B12 150 pg/mL (232-1245) L 04/13/23 16:57 Procalcitonin 0.26 ng/mL (0-0.5) 04/13/23 16:57 TSH 1.50 uIU/mL (0.27-4.20) 04/13/23 16:57 Blood Type O Positive 04/14/23 12:04 Rho(D) Type Positive 04/14/23 12:04 Antibody Screen Negative 04/14/23 12:04 Crossmatch See Detail 04/14/23 12:04 Discharge Plan Discharge Patient Disposition: Admitted As Inpatient Admit Provider: Álvaro Kuhn Clinical Impression: Colitis, Autism, Loss of appetite for more than 2 weeks Condition: Stable Discharge Diet: Regular Discharge Activity: Resume usual activity and Increase activity as tolerated Coding Level of Care Code ED [employer] Librarian for Chg Fwd Documented by User: Zaida Cross MD 04/13/23 19:32 HPI - Nausea/Vomiting/Diarrhea General: Chief complaint: Nausea/Vomiting/Diarrhea Stated complaint: n/v, not eating Time Seen by Provider: 04/13/23 15:55 PFSH ED PFSH: Medical History Allergic rhinitis Anxiety Autism disorder Epilepsy Managed by Dr. Casanova Folic acid deficiency Generalized seizure Hydrocele Noted May 2019. Decreased in size by report July 2019 and continued report May 2022. Incontinence of feces Pneumonia Vitamin B12 deficiency Surgical History History of tonsillectomy and adenoidectomy Hx of myringotomy Family History Other CAD (coronary artery disease) Cancer Lung disease Migraines, neuralgic Social History Smoking and tobacco status: never smoked Alcohol intake: never Substance/Drug Use: never Adopted: No Caregiver/support person: Yes Lives independently: No Course Vital Signs: Vital signs: Vital Signs Temperature 97.6 F 04/20/23 13:10 Pulse Rate 88 04/20/23 13:10 Respiratory Rate 15 04/20/23 13:10 Blood Pressure 110/74 04/20/23 13:10 Pulse Oximetry 98 04/20/23 13:10 Oxygen Delivery Me thod Room Air 04/20/23 11:21 MDM - Nausea/Vomiting/Diarrhea Medical Decision Making Patient presents here with not eating for weeks had some diarrhea he does have a colitis talking to his caregiver he has not been taking many of his pills either will admit at this time as he not been eating I am concerned he will not take his Cipro Flagyl for the colitis will admit IV antibiotics spoke to hospitalist will admit. Lab Data 04/20/23 05:24 04/19/23 05:43 Radiology Impressions Chest X-Ray 04/13/23 16:25 IMPRESSION: No acute pulmonary change with prominent levoscoliosis as noted Abdomen/Pelvis CT 04/13/23 16:58 IMPRESSION: 1. Findings consistent with mild segmental colitis involving the transverse colon. Consider C diff colitis. 2. 2 cm cavitating nodule left lower lobe. Recommend dedicated CT chest to exclude other lesions. 3. Large hydrocele within the right scrotal cavity partially visualized. 4. Borderline splenomegaly 5. Enlarging nodular densities that appear to be arising from the skin surface anterior to the pubic bone that should be correlated with clinical exam. COMMENTS: Consistent with the [employer]'s Incidental Findings Committee white paper (J Am Sid Radiol 2018): Any incidental renal lesion less than 1 cm or classified as too small to characterize, or any incidental cystic renal lesion characterized as simple-appearing, is likely benign. No follow-up imaging is recommended for these lesions per consensus recommendations based on imaging criteria. Chest CT 04/14/23 20:25 IMPRESSION: 1. Thick-walled cavitary lesion in the LEFT lower lobe about the inferior hilum measuring 1.8 x 1.9 cm. Additional cavitary lesion in the LEFT lower lobe superior segment posterior medially measuring 1.2 x 1.3 CM. Additional smaller cavitary lesion in the LEFT lower lobe superior segment posterolaterally. Differential considerations in a patient this age include lung abscess due to aspiration, mycobacterial infection, fungal infection, pulmonary infarct, and less likely Rhett's granulomatosis. Recommend correlation with clinical history. 2. Trace LEFT pleural fluid. 3. A few hazy groundglass opacities in the LEFT greater than RIGHT lower lobes. 4. No focal consolidation or pleural fluid. Gallbladder Ultrasound 04/16/23 10:03 IMPRESSION: Mildly distended gallbladder with a moderate amount of sludge. No sonographic evidence of acute cholecystitis. Laboratory Results WBC 7.4 10^3/uL (4.5-13.0) 04/14/23 07:55 RBC 2.19 10^6/uL (4.1-5.3) L 04/14/23 07:55 Hgb 7.8 g/dL (11.7-16.6) L 04/14/23 12:04 Hct 24.2 % (42.0-52.0) L 04/14/23 12:04 MCV 103.7 fl (80-94) H 04/14/23 07:55 MCH 33.8 pg (28.0-34.0) 04/14/23 07:55 MCHC 32.6 g/dL (30.0-36.0) 04/14/23 07:55 RDW 15.8 % (12.1-15.1) H 04/14/23 07:55 Plt Count 135 10^3/cmm (130-400) 04/14/23 07:55 MPV 9.6 fL (7.4-10.4) 04/14/23 07:55 Neut % (Auto) 70.9 % 04/14/23 07:55 Lymph % (Auto) 22.0 % 04/14/23 07:55 Randolph % (Auto) 5.7 % 04/14/23 07:55 Eos % (Auto) 0.7 % 04/14/23 07:55 Baso % (Auto) 0.0 % 04/14/23 07:55 Neut # (Auto) 5.21 10^3/uL (1.8-8.0) 04/14/23 07:55 Lymph # (Auto) 1.6 10^3/uL (1.5-6.5) 04/14/23 07:55 Randolph # (Auto) 0.4 10^3/uL (0.2-0.9) 04/14/23 07:55 Eos # (Auto) 0.1 10^3/uL (0.0-0.8) 04/14/23 07:55 Baso # (Auto) 0.0 10^3/uL (0.0-0.1) 04/14/23 07:55 Nucleated RBC % (auto) 0.4 % 04/14/23 07:55 Nucleated RBCs # 0.0 /100WBC 04/14/23 07:55 Sodium 136 mmol/L (136-145) 04/14/23 07:55 Potassium 2.4 mmol/L (3.5-5.1) L* D 04/14/23 07:55 Chloride 94 mmol/L (98-107) L 04/14/23 07:55 Carbon Dioxide 31 mmol/L (22-29) H 04/14/23 07:55 Anion Gap 13.4 (5-19) 04/14/23 07:55 BUN 12 mg/dL (6-20) 04/14/23 07:55 Creatinine 0.8 mg/dL (0.7-1.2) 04/14/23 07:55 GFR Calculation 123.2 mL/min (90-130) 04/14/23 07:55 Glucose 110 mg/dL (65-115) 04/14/23 07:55 Calculated Osmolality 282 mOsm/kg (285-295) L 04/14/23 07:55 Lactic Acid 2.1 mmol/L (0.5-2.2) 04/13/23 16:57 Lactic Acid (Sepsis) 2.4 mmol/L (0.5-2.2) H 04/13/23 19:35 Lactate 1.2 mmol/L (0.5-2.2) 04/14/23 08:25 Calcium 8.0 mg/dL (8.5-10.5) L 04/14/23 07:55 Phosphorus 3.1 mg/dL (2.5-4.5) 04/14/23 07:55 Magnesium 2.3 mg/dL (1.7-2.3) 04/14/23 07:55 Total Bilirubin 2.4 mg/dL (0.15-1.2) H 04/14/23 07:55 Direct Bilirubin 1.20 mg/dL (0.00-0.30) H 04/14/23 07:55 Indirect Bilirubin 1.20 04/14/23 07:55 AST 19 U/L (0-40) 04/13/23 16:57 ALT 51 U/L (0-41) H 04/13/23 16:57 Alkaline Phosphatase 94 U/L (40-130) 04/13/23 16:57 C-Reactive Protein 10.9 mg/L (0.0-4.9) H 04/14/23 07:55 Total Protein 7.4 g/dL (6.6-8.7) 04/13/23 16:57 Albumin 4.3 g/dL (3.5-5.2) 04/13/23 16:57 Globulin 3.1 g/dL (1.3-4.6) 04/13/23 16:57 Lipase 50 U/L (13-60) 04/13/23 16:57 Vitamin B12 150 pg/mL (232-1245) L 04/13/23 16:57 Procalcitonin 0.26 ng/mL (0-0.5) 04/13/23 16:57 TSH 1.50 uIU/mL (0.27-4.20) 04/13/23 16:57 Blood Type O Positive 04/14/23 12:04 Rho(D) Type Positive 04/14/23 12:04 Antibody Screen Negative 04/14/23 12:04 Crossmatch See Detail 04/14/23 12:04 Discharge Plan Discharge Patient Disposition: Admitted As Inpatient Admit Provider: Álvaro Kuhn Clinical Impression: Colitis, Autism, Loss of appetite for more than 2 weeks Condition: Stable Discharge Diet: Regular Discharge Activity: Resume usual activity and Increase activity as tolerated Coding Level of Care Code ED [employer] Librarian for Irene Galicia
[2023-04-13] MEDS: LORazepam 2 mg/mL INJ 1 mL IM (16:17)
--- NOTE | 2023-04-13 16:25 | XR_ITS ---
WS: [id number] EXAMINATION: XR chest 1V portable [id number] REASON FOR EXAM: AMS, tachycardia COMPARISON: 09/23/2022 ORDER DATE: 04/13/2023 4:31 PM TECHNIQUE: A single, portable frontal chest x-ray was obtained. X-RAY FINDINGS: The lungs are clear. Pleural spaces are clear. No pleural effusions or pneumothorax. Cardiomediastinal silhouette is normal. No evidence for pulmonary edema. Soft tissue outlines are unremarkable There is a prominence levoscoliosis in the upper thoracic spine of approximately 34 degrees. No tubes or lines are present. An old right mid clavicle fracture noted. XR/XR chest 1V portable [id number] IMPRESSION: No acute pulmonary change with prominent levoscoliosis as noted
--- NOTE | 2023-04-13 16:58 | CTR_ITS ---
PROCEDURE INFORMATION: Exam: CT Abdomen And Pelvis With Contrast Exam date and time: 04/13/2023 5:36 PM Age: 22 years old Clinical indication: Nausea and vomiting; Additional info: Recurrent nausea and vomiting, weakness TECHNIQUE: Imaging protocol: Computed tomography of the abdomen and pelvis with contrast. Radiation optimization: All CT scans at this facility use at least one of these dose optimization techniques: automated exposure control; mA and/or kV adjustment per patient size (includes targeted exams where dose is matched to clinical indication); or iterative reconstruction. Contrast material: OMNI 350; Contrast volume: 100 ml; Contrast route: INTRAVENOUS (IV); REPORTING DATA: Count of CT and Cardiac NM exams in prior 12 months: This patient has received 3 known CTs and 0 known cardiac nuclear medicine studies in the 12 months prior to the current study. COMPARISON: CT abdomen pelvis wo con [id number] 03/16/2023 3:17 PM RADIATION DOSE METRICS: Total DLP (mGy-cm): 838 FINDINGS: Lungs: 2 cm cavitary nodular density left lower lobe. Liver: Liver is unremarkable. No mass or enlargement detected. Gallbladder and bile ducts: Normal. No calcified stones. No ductal dilation. Pancreas: Unremarkable. Main pancreatic duct is not significantly dilated. Spleen: Borderline enlarged measuring 14 cm in greatest dimension. Adrenal glands: Normal. No mass. Kidneys and ureters: There is a small hypodensity both kidneys too small to adequately characterize but statistically likely benign. Stomach and bowel: There is mild inflammatory wall thickening with mural stratification involving transverse colon that has developed likely secondary to mild segmental colitis. Adjacent pericolonic fat planes are preserved. And Appendix: No evidence of appendicitis. Intraperitoneal space: Unremarkable. No free air. No significant fluid collection. Vasculature: Unremarkable. No abdominal aortic aneurysm. Lymph nodes: Unremarkable. No enlarged lymph nodes. Urinary bladder: Unremarkable as visualized. Reproductive: There is a 7 cm circumscribed fluid collection partially visualized within the upper portion of the scrotum likely representing a large hydrocele. Bones/joints: Unremarkable. No acute fracture. Soft tissues: There are small sessile shaped nodular densities along the skin surface anterior to the pubic bone that appear to have increased in size from previous exam in should be correlated clinically. CT/CT abdomen pelvis w con* [id number] IMPRESSION: 1. Findings consistent with mild segmental colitis involving the transverse colon. Consider C diff colitis. 2. 2 cm cavitating nodule left lower lobe. Recommend dedicated CT chest to exclude other lesions. 3. Large hydrocele within the right scrotal cavity partially visualized. 4. Borderline splenomegaly 5. Enlarging nodular densities that appear to be arising from the skin surface anterior to the pubic bone that should be correlated with clinical exam. COMMENTS: Consistent with the [employer]'s Incidental Findings Committee white paper (J Am Sid Radiol 2018): Any incidental renal lesion less than 1 cm or classified as too small to characterize, or any incidental cystic renal lesion characterized as simple-appearing, is likely benign. No follow-up imaging is recommended for these lesions per consensus recommendations based on imaging criteria.
[2023-04-13 17:16] LABS: Basophils % 0.1 %; Eosinophils % 0.2 %; Hematocrit 30.6 % (42.0-52.0); Hemoglobin 10.2 g/dL (11.7-16.6); Lymphocytes # 1.5 10^3/uL (1.5-6.5); Lymphocytes % 13.5 %; Mean Corpuscular HGB Conc 33.3 g/dL (30.0-36.0); Mean Corpuscular Hemoglobin 33.7 pg (28.0-34.0); Mean Platelet Volume 10.2 fL (7.4-10.4); Monocytes # 0.6 10^3/uL (0.2-0.9); Monocytes % 5.6 %; Nucleated Red Blood Cells # 0.1 /100WBC; Nucleated Red Blood Cells % 0.5 %; Platelet Count 180 10^3/cmm (130-400); Red Blood Count 3.03 10^6/uL (4.1-5.3); Red Cell Distribution Width 15.3 % (12.1-15.1)
[2023-04-13] MEDS: lactated ringers 1,000 ML 999 ML IV ×2 (17:18)
[2023-04-13 17:25] LABS: Lactic Sepsis W/Reflex 2.1 mmol/L (0.5-2.2)
[2023-04-13 17:43] LABS: Alanine Aminotransferase 51 U/L (0-41); Albumin Level 4.3 g/dL (3.5-5.2); Alkaline Phosphatase 94 U/L (40-130); Anion Gap 18.1 (5-19); Aspartate Amino Transferase 19 U/L (0-40); Blood Urea Nitrogen 17 mg/dL (6-20); C Reactive Protein 9.4 mg/L (0.0-4.9); Calcium 9.5 mg/dL (8.5-10.5); Carbon Dioxide 33 mmol/L (22-29); Chloride 86 mmol/L (98-107); Globulin 3.1 g/dL (1.3-4.6); Glomerular Filtration Rate 107.6 mL/min (90-130); Glucose 110 mg/dL (65-115); Lipase 50 U/L (13-60); Magnesium 2.7 mg/dL (1.7-2.3); Osmolality Calculated 280 mOsm/kg (285-295); Potassium 3.1 mmol/L (3.5-5.1); Sodium 134 mmol/L (136-145); Total Bilirubin 4.1 mg/dL (0.15-1.2); Total Protein 7.4 g/dL (6.6-8.7)
[2023-04-13 17:48] LABS: Procalcitonin 0.26 ng/mL (0-0.5)
[2023-04-13] MEDS: iohexol 350 mg/mL 500 mL Btl (per mL) IV (17:49)
[2023-04-13 18:49] LABS: Reflex Lactate Order REFLEX LACTIC ORDERD
--- NOTE | 2023-04-13 19:15 | PC.NURSE ---
Spoke with Kiet in pharmacy. He said it was okay to y cipro IV and flagyl IV into bolus and administer.
[2023-04-13] MEDS: lidocaine 1% 5 ML in potassium chloride premix 100 ML 25 ML IV (19:43)
[2023-04-13 20:10] LABS: Lactic Acid level (Lactate) 2.4 mmol/L (0.5-2.2)
[2023-04-13] MEDS: metroNIDAZOLE IV 500 MG/100 ML PREMIX 100 MG IV (20:19)
--- NOTE | 2023-04-13 20:19 | P.HP_ITS ---
Providers/Chief Complaint Admitting Physician: Álvaro Kuhn MD Primary Care Provider: Roxann Martinez MD Chief Complaint: n/v, not eating History of Present Illness Doug Pantoja is a 22 year old male with intellectual disability, presented to the hospital with chief complaint of anorexia, inability to eat, recurrent vomiting. Caregiver at the bedside stating that they have not noticed any fever there is a chance he might have aspirated because he does not change his po sition when he vomits most of the time, he is incontinent at baseline, does not communicate, able to ambulate, a good eater on a regular day In the ER he has been diagnosed with transverse colitis, concern for aspiration pneumonia request CT chest Review of Systems General: Reports: ROS unobtainable due to medical condition and ROS unobtainable due to mental status Medications/Allergies Home Medications Medication Instructions Recorded Confirmed Last Taken Type melatonin 1 mg tablet 1 mg PO BEDTIME PRN Insomnia 05/06/22 04/06/23 Unknown History levetiracetam 750 mg tablet 750 mg PO BID #60 tabs 05/07/22 04/06/23 Unknown Rx sertraline 100 mg tablet 150 mg PO DAILY 05/13/22 04/06/23 Unknown History clonidine HCl 0.2 mg tablet 0.2 mg PO .q evening #30 tabs 05/25/22 04/06/23 Unknown Rx hydroxyzine HCl 25 mg tablet 25 mg PO TID PRN Itching #30 tabs 01/06/23 04/06/23 Unknown Rx ondansetron HCl 4 mg tablet 4 mg PO Q6H PRN nausea and 03/07/23 04/06/23 Unknown Rx vomiting #10 tabs pantoprazole 20 mg tablet,delayed 20 mg PO DAILY #30 tabs 03/07/23 04/06/23 Unknown Rx release polyethylene glycol 3350 17 4 g PO BID #238 grams 03/16/23 04/06/23 Unknown Rx gram/dose oral powder (Miralax) docusate sodium 100 mg capsule 200 mg PO BID #120 caps 04/06/23 04/06/23 Unknown Rx Allergies Allergy/AdvReac Type Severity Reaction Status Date / Time Penicillins Allergy ADR-Nausea Verified 04/06/23 16:38 Sulfa (Sulfonamide Allergy Unknown Verified 04/06/23 16:38 Antibiotics) PFSH Acute PFSH: Medical History Allergic rhinitis Anxiety Autism disorder Epilepsy Managed by Dr. Casanova Generalized seizure Hydrocele Noted May 2019. Decreased in size by report July 2019 and continued report May 2022. Incontinence of feces Pneumonia Surgical History History of tonsillectomy and adenoidectomy Hx of myringotomy Family History Other CAD (coronary artery disease) Cancer Lung disease Migraines, neuralgic Social History Smoking and tobacco status: never smoked Alcohol intake: never Substance/Drug Use: never Adopted: No Caregiver/support person: Yes Lives independently: No Vitals/I&O/Wt Last Vital Signs Temp 98.3 F 04/13/23 15:46 Pulse 84 04/13/23 18:52 Resp 18 04/13/23 18:52 BP 108/75 04/13/23 18:52 Pulse Ox 99 04/13/23 18:52 O2 Del Method Room Air 04/13/23 18:52 04/13/23 04/13/23 04/13/23 06:59 14:59 22:59 Intake Total 1000 / 1000 Balance 1000 / 1000 Physical Exam Narrative: Patient laying supine Dehydrated Pale complexion Abdomen soft Mild tenderness around hypogastric region Suprapubic fullness noted S1, S2 Currently on room air Caregiver at the bedside Able to move his extremity Data 04/13/23 16:57 04/13/23 16:57 Micro: Microbiology 04/13/23 19:40 Blood Culture - Preliminary Blood SPECIMEN COLLECTED 04/13/23 19:35 Blood Culture - Preliminary Blood SPECIMEN COLLECTED A&P Assessment and plan (1) Colitis: (2) Loss of appetite for more than 2 weeks: (3) Intractable nausea and vomiting: (4) Unintentional weight loss of 5% body weight or less within 1 month: (5) Hydrocele: (6) Aspiration pneumonitis: Plan Anorexia, recurrent vomiting related to colitis I will keep patient n.p.o. Start PPN in the morning Dietary consult Start IV fluids Start antibiotics Patient is full code Patient care history of seizure I will change his Keppra to IV form Patient sometimes gets agitated and tries to rip his IVs, will use Coban to secure his peripheral IVs which were secured with ultrasound Continue IV Protonix Patient gets clonidine at nighttime as sedation, for behavioral issues we can use as needed Zyprexa or Haldol Patient not able to provide history Most of the information has been taken from the caregiver Attestations Medical Necessity Statement*: Anticipating discharge within 48 hours will need treatment for anorexia, colitis Diagnoses Colitis K52.9 Loss of appetite for more than 2 weeks R63.0 Intractable nausea and vomiting R11.2 Unintentional weight loss of 5% body weight or less within 1 month R63.4 Hydrocele N43.3 Aspiration pneumonitis J69.0
[2023-04-13] MEDS: ciprofloxacin 400 MG/200 ML PREMIX 200 MG IV (20:31)
--- NOTE | 2023-04-13 21:13 | PC.NURSE ---
report given to Karina SABA at this time
[2023-04-13 22:16] LABS: Vitamin B12 150 pg/mL (232-1245)
[2023-04-13] MEDS: dextrose 5%-sod chloride 0.9% 1,000 ML 75 ML IV (22:51)
[2023-04-13] MEDS: ondansetron 2 mg/ML SDV 2 mL 4 MG IVP (22:52)
[2023-04-13] MEDS: levETIRAcetam 750 MG in sodium chloride 0.9% (100 ml) 100 ML 430 MG IV (22:52)
[2023-04-13] MEDS: piperacillin-tazobactam 3.375 GM in sodium chloride 0.9% (plus) 50 ML IV (23:05)
[2023-04-14] VITALS (8 sets, daily range): BP systolic 89–128; BP diastolic 56–69; PULSE 59–101; RESP 14–19; TEMP 36.2–36.9; O2SAT 91–98
[2023-04-14] MEDS: piperacillin-tazobactam 3.375 GM in sodium chloride 0.9% (plus) 50 ML IV ×3 (05:32→23:29)
[2023-04-14 08:04] LABS: Eosinophils # 0.1 10^3/uL (0.0-0.8); Eosinophils % 0.7 %; Hematocrit 22.7 % (42.0-52.0); Hemoglobin 7.4 g/dL (11.7-16.6); Lymphocytes # 1.6 10^3/uL (1.5-6.5); Mean Corpuscular HGB Conc 32.6 g/dL (30.0-36.0); Mean Corpuscular Hemoglobin 33.8 pg (28.0-34.0); Mean Corpuscular Volume 103.7 fl (80-94); Mean Platelet Volume 9.6 fL (7.4-10.4); Monocytes # 0.4 10^3/uL (0.2-0.9); Monocytes % 5.7 %; Neutrophils # 5.21 10^3/uL (1.8-8.0); Neutrophils % 70.9 %; Nucleated Red Blood Cells % 0.4 %; Platelet Count 135 10^3/cmm (130-400); Red Blood Count 2.19 10^6/uL (4.1-5.3); Red Cell Distribution Width 15.8 % (12.1-15.1); White Blood Count 7.4 10^3/uL (4.5-13.0)
[2023-04-14 08:22] LABS: Anion Gap 13.4 (5-19); Blood Urea Nitrogen 12 mg/dL (6-20); C Reactive Protein 10.9 mg/L (0.0-4.9); Carbon Dioxide 31 mmol/L (22-29); Chloride 94 mmol/L (98-107); Glomerular Filtration Rate 123.2 mL/min (90-130); Glucose 110 mg/dL (65-115); Magnesium 2.3 mg/dL (1.7-2.3); Osmolality Calculated 282 mOsm/kg (285-295); Phosphorus 3.1 mg/dL (2.5-4.5); Sodium 136 mmol/L (136-145)
[2023-04-14 08:32] LABS: Potassium 2.4 mmol/L (3.5-5.1)
[2023-04-14 08:43] LABS: Total Bilirubin 2.4 mg/dL (0.15-1.2)
[2023-04-14] MEDS: pantoprazole 40 mg SDV IVP (08:47)
--- NOTE | 2023-04-14 08:53 | PC.PHAR ---
pts family verified pts medications-states the pt takes colace,hydroxyzine hcl and miralax prn-pts family states the pt is no longer taking pantoprazole 20mg daily filled 03/21/23 30d/s-pts family states the pt is taking dicyclomine 20mg bid rx filled 04/02/23 10d/s 20mg qid-notes are made in the pharmacy comments
[2023-04-14 08:58] LABS: Lactate (Lactic Acid level) 1.2 mmol/L (0.5-2.2)
[2023-04-14] MEDS: levETIRAcetam 750 MG in sodium chloride 0.9% (100 ml) 100 ML 430 MG IV ×2 (10:50→22:43)
--- NOTE | 2023-04-14 11:19 | PC.CHAP ---
Pastoral Care Encounter/Spiritual Assessment Type of Contact [] Declined pre owned sales consultant visit [] Patient/Family/Request visit [] Outpatient visit [x] Follow-up visit [] Physician referral [] Code/Alert [] Routine visit [] Staff referral [] Actively dying [] Patient sleeping [] Family support [] [] Out of room [] Palliative care [] [] Receiving care in room [] Pre-surgical visit [] Trauma [] Long length of stay [] ICU visit [] Other: Relational/Emotional Strength [] Patient feels connected with others/family/visitors/staff [] Distress [] Loneliness/isolation [] Abandonment Spirituality of Patient [] Person of Zainab [] Attends Sikh of their Zainab [] Believes in Prayer [] Reads Bible or Rastafarian materials [] There are Spiritual issues to be addressed Doper Operator Interventions [] Prayer [] Active listening [] Non-anxious presence [] Spiritual/emotional support [] Crisis/trauma care [] Spiritual counseling [] Bereavement support [] Provided bereavement packet [] Provided Bible/devotional materials [] Provided toy/stuffed animal, coloring book to patient or family member [] Provided Communion [] Anointing/Ennice [] Salvation [] Completed spiritual assessment [] Other: Impact on Illness or Injury [] Angry [] Fearful [] Anxious [] Often cries [] Exhaustion [] Unable to work [] Unable to attend zoroastrian [] Unable to walk/stand [] Unable to read [] Unable to drive [] Unable to eat/drink [] Unable to sleep [] Unable to be with family [] Patient intubated [] Other: Summary Follow-up visit Time spent with patient 5 mins
[2023-04-14] MEDS: lidocaine 1% 5 ML in potassium chloride premix 100 ML 26.25 ML IV ×2 (11:27→16:58)
--- NOTE | 2023-04-14 11:43 | PM.PN ---
Subjective Subjective: Hyperkalemia, lactic acidemia improving Low B12 Bilirubin trending down Afebrile Drop in H&H noted I will repeat H&H We will request PPN Vitals/I&O/Wt Last Vital Signs Temp 97.3 F L 04/14/23 11:21 Pulse 59 L 04/14/23 11:21 Resp 18 04/14/23 11:21 BP 102/69 04/14/23 11:21 Pulse Ox 95 04/14/23 11:21 O2 Del Method Room Air 04/14/23 11:21 04/13/23 04/14/23 04/14/23 22:59 06:59 14:59 Intake Total 362.5 / 2389.167 157.5 / 157.5 Balance 362.5 / 2389.167 157.5 / 157.5 Physical Exam Narrative: Patient lying supine Does not communicate Able to move his extremities No acute distress Seems comfortable Mild tenderness epigastric region Neuro exam limited Currently on room air S1, S2 Data 04/14/23 07:55 04/14/23 07:55 Micro: Microbiology 04/13/23 19:40 Blood Culture - Preliminary Blood SPECIMEN COLLECTED 04/13/23 19:35 Blood Culture - Preliminary Blood SPECIMEN COLLECTED A&P Assessment and plan (1) Aspiration pneumonitis: (2) Colitis: (3) Sleep difficulties: (4) Unintentional weight loss of 5% body weight or less within 1 month: (5) Intractable nausea and vomiting: (6) Loss of appetite for more than 2 weeks: Plan Colitis Continue antibiotics Patient is at risk of refeeding syndrome patient has not eaten in the last few weeks Start PPN Monitor for electrolyte imbalance Magnesium phosphorus at goal Hypokalemia: Repleted I will start him on clear liquid diet Aspiration pneumonitis, afebrile not requiring oxygen at this point X-ray showing consolidation TSH normal Low vitamin B12 we will give him a muscular injection of vitamin B12 Bilirubin trending down: Gilbert's syndrome? Dehydration related lactic acidemia: Resolved Attestations Medical Necessity Statement*: Likely patient will be able to go back to [facility] on Tuesday Diagnoses Aspiration pneumonitis J69.0 Colitis K52.9 Sleep difficulties G47.9 Unintentional weight loss of 5% body weight or less within 1 month R63.4 Intractable nausea and vomiting R11.2 Loss of appetite for more than 2 weeks R63.0
[2023-04-14] MEDS: dextrose 5%-sod chloride 0.9% 1,000 ML 75 ML IV ×2 (12:09→23:39)
[2023-04-14] MEDS: ondansetron 2 mg/ML SDV 2 mL 4 MG IVP (12:18)
[2023-04-14 12:21] LABS: Hematocrit 24.2 % (42.0-52.0); Hemoglobin 7.8 g/dL (11.7-16.6)
--- NOTE | 2023-04-14 15:13 | PC.SOCIAL ---
Patient in observation status, SDOH not completed.
--- NOTE | 2023-04-14 20:25 | CT_ITS ---
WS: [id number] CT CHEST TECHNIQUE: Noncontrast CT of the chest with coronal and sagittal reformatted images. CLINICAL INFORMATION: cavitary lesion COMPARISON: CT abdomen pelvis April 13, 2023 DLP: 415.[address] scans at [facility] use at least one of these dose optimization techniques: automated e xposure control; mA and/or kV adjustment per patient size (includes targeted exams where dose is matc hed to clinical indication); or iterative reconstruction. FINDINGS: Thick-walled cavitary lesion in the LEFT lower lobe about the inferior hilum measuring 1.8 x 1.9 cm. Central cavity. Additional cavitary lesion in the LEFT lower lobe superior segment posterior medially measuring 1.2 x 1.3 CM. A few hazy groundglass opacities in the LEFT greater than RIGHT lower lobes. Additional smaller cavitary lesion in the LEFT lower lobe superior segment posterolaterally measuring 8 mm best visualized on the sagittal imaging. No mediastinal or hilar lymphadenopathy. No axillary lymphadenopathy. Normal caliber thoracic aorta. Adrenal glands are normal. S-shaped thoracic scoliosis. CT/CT chest wo con [id number] IMPRESSION: 1. Thick-walled cavitary lesion in the LEFT lower lobe about the inferior hilu m measuring 1.8 x 1.9 cm. Additional cavitary lesion in the LEFT lower lobe sup erior segment posterior medially measuring 1.2 x 1.3 CM. Additional smaller cav itary lesion in the LEFT lower lobe superior segment posterolaterally. Differen tial considerations in a patient this age include lung abscess due to aspiratio n, mycobacterial infection, fungal infection, pulmonary infarct, and less likel y Rhett's granulomatosis. Recommend correlation with clinical history. 2. Trace LEFT pleural fluid. 3. A few hazy groundglass opacities in the LEFT greater than RIGHT lower lobes . 4. No focal consolidation or pleural fluid.
[2023-04-14] MEDS: heparin 5,000 unit/mL INJ 1 mL 5000 UNIT SUBCUT (20:48)
[2023-04-14] MEDS: hyDROXYzine 25 mg Capsule PO (23:39)
[2023-04-15] VITALS (12 sets, daily range): BP systolic 102–132; BP diastolic 59–85; PULSE 59–111; RESP 14–18; TEMP 36.4–36.8; O2SAT 91–100
[2023-04-15 07:09] LABS: Basophils % 0.2 %; Eosinophils # 0.1 10^3/uL (0.0-0.8); Eosinophils % 1.2 %; Hematocrit 24.4 % (42.0-52.0); Hemoglobin 7.6 g/dL (11.7-16.6); Lymphocytes # 2.2 10^3/uL (1.5-6.5); Lymphocytes % 33.8 %; Mean Corpuscular HGB Conc 31.1 g/dL (30.0-36.0); Mean Corpuscular Hemoglobin 34.5 pg (28.0-34.0); Mean Corpuscular Volume 110.9 fl (80-94); Mean Platelet Volume 9.3 fL (7.4-10.4); Monocytes # 0.3 10^3/uL (0.2-0.9); Neutrophils # 3.87 10^3/uL (1.8-8.0); Neutrophils % 59.2 %; Nucleated Red Blood Cells % 0.6 %; Platelet Count 164 10^3/cmm (130-400); Red Cell Distribution Width 15.9 % (12.1-15.1); White Blood Count 6.5 10^3/uL (4.5-13.0)
[2023-04-15 07:28] LABS: Albumin Level 3.1 g/dL (3.5-5.2); Alkaline Phosphatase 67 U/L (40-130); Blood Urea Nitrogen 5 mg/dL (6-20); C Reactive Protein 10.5 mg/L (0.0-4.9); Calcium 8.1 mg/dL (8.5-10.5); Carbon Dioxide 23 mmol/L (22-29); Chloride 101 mmol/L (98-107); Globulin 2.6 g/dL (1.3-4.6); Glomerular Filtration Rate 143.8 mL/min (90-130); Glucose 91 mg/dL (65-115); Osmolality Calculated 277 mOsm/kg (285-295); Phosphorus 1.4 mg/dL (2.5-4.5); Sodium 135 mmol/L (136-145); Total Bilirubin 1.9 mg/dL (0.15-1.2); Total Protein 5.7 g/dL (6.6-8.7)
[2023-04-15 07:31] LABS: Alanine Aminotransferase 31 U/L (0-41); Anion Gap 15.1 (5-19); Aspartate Amino Transferase 27 U/L (0-40); Potassium 4.1 mmol/L (3.5-5.1)
[2023-04-15] MEDS: pantoprazole 40 mg SDV IVP (09:32)
[2023-04-15] MEDS: piperacillin-tazobactam 3.375 GM in sodium chloride 0.9% (plus) 50 ML IV ×2 (09:35→16:54)
[2023-04-15] MEDS: heparin 5,000 unit/mL INJ 1 mL 5000 UNIT SUBCUT (09:35)
[2023-04-15] MEDS: phosphorus 250 mg Tablet PO (10:46)
[2023-04-15] MEDS: levETIRAcetam 750 MG in sodium chloride 0.9% (100 ml) 100 ML 430 MG IV ×2 (10:59→21:50)
--- NOTE | 2023-04-15 11:32 | P.PN_ITS ---
Subjective Subjective: Patient did not vomit with clear liquid diet Advance diet Hypophosphatemia Start p.o. phosphorus Potassium is better Afebrile Requested FOBT BUN is not high We will give him 1 unit PRBC No active source of bleeding identified Vitals/I&O/Wt Last Vital Signs Temp 98.1 F 04/15/23 08:00 Pulse 103 H 04/15/23 08:00 Resp 16 04/15/23 08:00 BP 103/59 04/15/23 08:00 Pulse Ox 99 04/15/23 08:00 O2 Del Method Room Air 04/15/23 07:25 04/14/23 04/15/23 04/15/23 22:59 06:59 14:59 Intake Total 260 / 1415.0 1020.0 / 2435.0 867.5 / 867.5 Balance 260 / 1415.0 1020.0 / 2435.0 867.5 / 867.5 Physical Exam 2 Narrative: Patient in supine Abdomen soft Bowel sound present Nonfocal neuro exam Patient is nonverbal at baseline Caregiver at the bedside Patient not able to follow commands Looks euvolemic Data 04/15/23 07:00 04/15/23 07:00 Micro: Microbiology 04/13/23 19:40 Blood Culture - Preliminary Blood NEGATIVE TO DATE 04/13/23 19:35 Blood Culture - Preliminary Blood NEGATIVE TO DATE A&P Assessment and plan (1) Aspiration pneumonitis: (2) Colitis: (3) Refeeding syndrome: (4) Autism: (5) Loss of appetite for more than 2 weeks: (6) Intractable nausea and vomiting: (7) Unintentional weight loss of 5% body weight or less within 1 month: Plan Refeeding syndrome Replenish phosphorus Advance diet to mechanical soft Continue IV fluids Start PPN if possible today No active nausea or vomiting Continue antibiotics for colitis Anticipate discharge over the weekend Continue DVT prophylaxis Continue IV Keppra Attestations Medical Necessity Statement*: Discharge over the weekend Coding Level of Care Code 75568 Moderate MDM includes number and complexity of problems actively addressed during encounter, amount and/or complexity of data reviewed/ordered and described risk of complication, morbidity or mortality of management as doc umented Diagnoses Aspiration pneumonitis J69.0 Colitis K52.9 Refeeding syndrome E87.8 Autism F84.0 Loss of appetite for more than 2 weeks R63.0 Intractable nausea and vomiting R11.2 Unintentional weight loss of 5% body weight or less within 1 month R63.4
[2023-04-15 12:20] LABS: Ferritin 278 ng/mL (30-400); Iron 178 ug/dL (59-158)
[2023-04-15 12:35] LABS: Vitamin B12 150 pg/mL (232-1245)
[2023-04-15 12:45] LABS: Percent Saturation 91.2 % (20-50); Total Iron Binding Capacity 195 mcg/dl; Unsaturated Iron Binding < 17 ug/dL (112-347)
[2023-04-15] MEDS: dextrose 5%-sod chloride 0.9% 1,000 ML 75 ML IV (14:33)
[2023-04-15] MEDS: sodium chloride 0.9% (100 ml) 100 ML 150 ML (16:55)
[2023-04-16] VITALS (7 sets, daily range): BP systolic 101–127; BP diastolic 67–86; PULSE 66–107; RESP 16–24; TEMP 36.3–36.6; O2SAT 92–100
[2023-04-16] MEDS: piperacillin-tazobactam 3.375 GM in sodium chloride 0.9% (plus) 50 ML IV ×4 (00:24→23:20)
[2023-04-16] MEDS: dextrose 5%-sod chloride 0.9% 1,000 ML 75 ML IV ×2 (04:06→17:37)
[2023-04-16 05:19] LABS: Basophils % 0.2 %; Eosinophils # 0.1 10^3/uL (0.0-0.8); Eosinophils % 1.8 %; Hematocrit 29.1 % (42.0-52.0); Hemoglobin 9.2 g/dL (11.7-16.6); Lymphocytes # 2.1 10^3/uL (1.5-6.5); Lymphocytes % 34.2 %; Mean Corpuscular HGB Conc 31.6 g/dL (30.0-36.0); Mean Corpuscular Hemoglobin 32.7 pg (28.0-34.0); Mean Corpuscular Volume 103.6 fl (80-94); Mean Platelet Volume 9.2 fL (7.4-10.4); Monocytes # 0.3 10^3/uL (0.2-0.9); Monocytes % 4.8 %; Nucleated Red Blood Cells % 0.5 %; Platelet Count 168 10^3/cmm (130-400); Red Blood Count 2.81 10^6/uL (4.1-5.3); Red Cell Distribution Width 17.7 % (12.1-15.1); White Blood Count 6.2 10^3/uL (4.5-13.0)
[2023-04-16 06:12] LABS: Alanine Aminotransferase 26 U/L (0-41); Albumin Level 3.4 g/dL (3.5-5.2); Alkaline Phosphatase 75 U/L (40-130); Blood Urea Nitrogen 2 mg/dL (6-20); Calcium 8.6 mg/dL (8.5-10.5); Carbon Dioxide 25 mmol/L (22-29); Chloride 101 mmol/L (98-107); Globulin 2.4 g/dL (1.3-4.6); Glucose 98 mg/dL (65-115); Osmolality Calculated 280 mOsm/kg (285-295); Sodium 137 mmol/L (136-145); Total Bilirubin 2.5 mg/dL (0.15-1.2); Total Protein 5.8 g/dL (6.6-8.7)
[2023-04-16 06:13] LABS: Phosphorus 1.5 mg/dL (2.5-4.5)
[2023-04-16 06:32] LABS: Anion Gap 14.7 (5-19); Aspartate Amino Transferase 16 U/L (0-40); Potassium 3.7 mmol/L (3.5-5.1)
[2023-04-16] MEDS: phosphorus 250 mg Tablet PO ×2 (08:42→17:36)
[2023-04-16] MEDS: pantoprazole 40 mg SDV IVP (08:45)
--- NOTE | 2023-04-16 10:03 | USR_ITS ---
PROCEDURE INFORMATION: Exam: US Abdomen, Limited; Right Upper Quadrant Exam date and time: 04/16/2023 12:05 PM Age: 22 years old Clinical indication: Other: Ruq pain TECHNIQUE: Imaging protocol: Real time ultrasound of the abdomen with image documentation. Limited exam focused on the right upper quadrant. COMPARISON: CT abdomen pelvis w con* [id number] 04/13/2023 5:36 PM FINDINGS: Liver: Unremarkable. Gallbladder: Mildly distended. Moderate amount of gallbladder sludge. No gallstones. No gallbladder wall thickening or pericholecystic fluid. Negative sonographic Crawford's sign, as per the performing machine cementer. Biliary ducts: Normal. No stones. No dilation. Pancreas: Unremarkable as visualized. Right kidney: No mass. No definite stones. No hydronephrosis. US/US gall bladder [id number] IMPRESSION: Mildly distended gallbladder with a moderate amount of sludge. No sonographic evidence of acute cholecystitis.
[2023-04-16] MEDS: levETIRAcetam 750 MG in sodium chloride 0.9% (100 ml) 100 ML 430 MG IV ×2 (11:16→21:06)
--- NOTE | 2023-04-16 12:23 | P.DS_ITS ---
Discharge Providers Date of Admission: 04/14/23 16:19 Date of Discharge: April 16, 2023 Attending Provider at Admission: Álvaro Kuhn MD Attending Provider at Discharge: Álvaro Kuhn MD Primary Care Provider: Roxann Martinez MD Diagnoses at Discharge Discharge Diagnosis (1) Aspiration pneumonitis: Status: Acute (2) Colitis: Status: Acute (3) Refeeding syndrome: Status: Acute (4) Autism: Status: Acute (5) Loss of appetite for more than 2 weeks: Status: Acute (6) Intractable nausea and vomiting: Status: Acute (7) Unintentional weight loss of 5% body weight or less within 1 month: Status: Acute Reason for Visit Reason for Visit: n/v, not eating Discharge Data Studies Completed and Pending Completed Studies During Hospitalization Category Date Time Status CT abdomen pelvis w con* [id number] Stat Cat Scan 04/13/23 16:[address] chest wo con [id number] Routine Cat Scan 04/14/23 20:25 Completed XR chest 1V portable [id number] Stat Exams 04/13/23 16:25 Completed Pending at discharge Category Date Time Status Blood Culture Stat Lab 04/13/23 19:40 Results Clostridioides Difficile PCR Routine Lab 04/13/23 18:52 Uncollected Fecal Occult Blood [Immunochemical Fecal OCB] Routine Lab 04/15/23 08:46 Uncollected Stool Culture, Bacterial [Enteric Bacterial Panel by Lab 04/13/23 21:37 Uncollected PCR] Routine Urinalysis Stat Lab 04/13/23 16:03 Uncollected stool Ova and Parasite [Enteric Parasite Panel by PCR] Lab 04/13/23 21:37 Uncollected Routine US gall bladder [id number] Stat Ultrasound 04/16/23 10:03 Ordered Radiology Impressions Chest X-Ray 04/13/23 16:25 IMPRESSION: No acute pulmonary change with prominent levoscoliosis as noted Abdomen/Pelvis CT 04/13/23 16:58 IMPRESSION: 1. Findings consistent with mild segmental colitis involving the transverse colon. Consider C diff colitis. 2. 2 cm cavitating nodule left lower lobe. Recommend dedicated CT chest to exclude other lesions. 3. Large hydrocele within the right scrotal cavity partially visualized. 4. Borderline splenomegaly 5. Enlarging nodular densities that appear to be arising from the skin surface anterior to the pubic bone that should be correlated with clinical exam. COMMENTS: Consistent with the [employer]'s Incidental Findings Committee white paper (J Am Sid Radiol 2018): Any incidental renal lesion less than 1 cm or classified as too small to characterize, or any incidental cystic renal lesion characterized as simple-appearing, is likely benign. No follow-up imaging is recommended for these lesions per consensus recommendations based on imaging criteria. Chest CT 04/14/23 20:25 IMPRESSION: 1. Thick-walled cavitary lesion in the LEFT lower lobe about the inferior hilum measuring 1.8 x 1.9 cm. Additional cavitary lesion in the LEFT lower lobe superior segment posterior medially measuring 1.2 x 1.3 CM. Additional smaller cavitary lesion in the LEFT lower lobe superior segment posterolaterally. Differential considerations in a patient this age include lung abscess due to aspiration, mycobacterial infection, fungal infection, pulmonary infarct, and less likely Rehtt's granulomatosis. Recommend correlation with clinical history. 2. Trace LEFT pleural fluid. 3. A few hazy groundglass opacities in the LEFT greater than RIGHT lower lobes. 4. No focal consolidation or pleural fluid. Laboratory Results WBC 6.2 10^3/uL (4.5-13.0) 04/16/23 05:07 RBC 2.81 10^6/uL (4.1-5.3) L 04/16/23 05:07 Hgb 9.2 g/dL (11.7-16.6) L 04/16/23 05:07 Hct 29.1 % (42.0-52.0) L 04/16/23 05:07 MCV 103.6 fl (80-94) H D 04/16/23 05:07 MCH 32.7 pg (28.0-34.0) 04/16/23 05:07 MCHC 31.6 g/dL (30.0-36.0) 04/16/23 05:07 RDW 17.7 % (12.1-15.1) H 04/16/23 05:07 Plt Count 168 10^3/cmm (130-400) 04/16/23 05:07 MPV 9.2 fL (7.4-10.4) 04/16/23 05:07 Neut % (Auto) 58.0 % 04/16/23 05:07 Lymph % (Auto) 34.2 % 04/16/23 05:07 Caswell % (Auto) 4.8 % 04/16/23 05:07 Eos % (Auto) 1.8 % 04/16/23 05:07 Baso % (Auto) 0.2 % 04/16/23 05:07 Neut # (Auto) 3.60 10^3/uL (1.8-8.0) 04/16/23 05:07 Lymph # (Auto) 2.1 10^3/uL (1.5-6.5) 04/16/23 05:07 Caswell # (Auto) 0.3 10^3/uL (0.2-0.9) 04/16/23 05:07 Eos # (Auto) 0.1 10^3/uL (0.0-0.8) 04/16/23 05:07 Baso # (Auto) 0.0 10^3/uL (0.0-0.1) 04/16/23 05:07 Nucleated RBC % (auto) 0.5 % 04/16/23 05:07 Nucleated RBCs # 0.0 /100WBC 04/16/23 05:07 Sodium 137 mmol/L (136-145) 04/16/23 05:47 Potassium 3.7 mmol/L (3.5-5.1) 04/16/23 05:47 Chloride 101 mmol/L (98-107) 04/16/23 05:47 Carbon Dioxide 25 mmol/L (22-29) 04/16/23 05:47 Anion Gap 14.7 (5-19) 04/16/23 05:47 BUN 2 mg/dL (6-20) L 04/16/23 05:47 Creatinine 0.5 mg/dL (0.7-1.2) L 04/16/23 05:47 GFR Calculation 212.0 mL/min (90-130) H 04/16/23 05:47 Glucose 98 mg/dL (65-115) 04/16/23 05:47 Calculated Osmolality 280 mOsm/kg (285-295) L 04/16/23 05:47 Lactic Acid 2.1 mmol/L (0.5-2.2) 04/13/23 16:57 Lactic Acid (Sepsis) 2.4 mmol/L (0.5-2.2) H 04/13/23 19:35 Lactate 1.2 mmol/L (0.5-2.2) 04/14/23 08:25 Calcium 8.6 mg/dL (8.5-10.5) 04/16/23 05:47 Phosphorus 1.5 mg/dL (2.5-4.5) L 04/16/23 05:47 Magnesium 2.0 mg/dL (1.7-2.3) 04/15/23 07:00 Iron 178 ug/dL (59-158) H 04/15/23 07:55 TIBC 195 mcg/dl 04/15/23 07:55 % Saturation 91.2 % (20-50) H 04/15/23 07:55 Unsat Iron Binding < 17 ug/dL (112-347) L 04/15/23 07:55 Ferritin 278 ng/mL (30-400) 04/15/23 07:55 Total Bilirubin 2.5 mg/dL (0.15-1.2) H 04/16/23 05:47 Direct Bilirubin 1.20 mg/dL (0.00-0.30) H 04/14/23 07:55 Indirect Bilirubin 1.20 04/14/23 07:55 AST 16 U/L (0-40) 04/16/23 05:47 ALT 26 U/L (0-41) 04/16/23 05:47 Alkaline Phosphatase 75 U/L (40-130) 04/16/23 05:47 C-Reactive Protein 10.5 mg/L (0.0-4.9) H 04/15/23 07:00 Total Protein 5.8 g/dL (6.6-8.7) L 04/16/23 05:47 Albumin 3.4 g/dL (3.5-5.2) L 04/16/23 05:47 Globulin 2.4 g/dL (1.3-4.6) 04/16/23 05:47 Lipase 50 U/L (13-60) 04/13/23 16:57 Vitamin B12 150 pg/mL (232-1245) L 04/15/23 07:55 Procalcitonin 0.26 ng/mL (0-0.5) 04/13/23 16:57 TSH 1.50 uIU/mL (0.27-4.20) 06/21/23 16:57 Blood Type O Positive 04/14/23 12:04 Rho(D) Type Positive 04/14/23 12:04 Antibody Screen Negative 04/14/23 12:04 Crossmatch See Detail 04/14/23 12:04 Vitals Last Vital Signs Temp 97.5 F L 04/16/23 07:59 Pulse 107 H 04/16/23 08:56 Resp 16 04/16/23 08:56 BP 101/67 04/16/23 07:59 Pulse Ox 97 04/16/23 08:56 O2 Del Method Room Air 04/16/23 08:56 Discharge Plan Discharge Patient Disposition: Home Condition: Stable Prescriptions: No Action sertraline 100 mg tablet 150 mg PO DAILY hydroxyzine HCl 25 mg tablet 25 mg PO TID PRN (Reason: Itching) Qty: 30 1RF Miralax 17 gram Powder In Packet 17 g PO BID PRN (Reason: Constipation) propranolol 10 mg tablet 10 mg PO BID clonidine HCl 0.2 mg tablet 0.2 mg PO BEDTIME dicyclomine 20 mg tablet 20 mg PO BID docusate sodium 100 mg capsule 200 mg PO BID PRN (Reason: Constipation) ondansetron 4 mg tablet,disintegrating 4 mg PO Q8H PRN (Reason: Nausea And Vomiting) levetiracetam 1,000 mg tablet 1,000 mg PO BID Referrals: Roxann Martinez MD [Primary Care Provider] - Patient Instructions: Opioid Safety Coding Level of Care Code Acute Code for Chg Fwd Diagnoses Aspiration pneumonitis J69.0 Colitis K52.9 Refeeding syndrome E87.8 Autism F84.0 Loss of appetite for more than 2 weeks R63.0 Intractable nausea and vomiting R11.2 Unintentional weight loss of 5% body weight or less within 1 month R63.4
--- NOTE | 2023-04-16 12:26 | PM.PN ---
Subjective Subjective: Patient tolerating diet Afebrile No leukocytosis Patient had a bowel movement which was regular As per the caregiver patient is back to his normal self Considering CT chest multiple cavitary lesions my concern is related to lung abscess, suspicion for Mycobacterium tuberculosis is low however I would like to rule it out galvanizing pot runner is not on-call until Tuesday, I will request interferon gamma release assay and put him on isolation Patient tolerating diet no need to PPN Phosphorus repleted CT chest findings ?Thick-walled cavitary lesion in the LEFT lower lobe about the inferior hilum measuring 1.8 x 1.9 cm. Additional cavitary lesion in the LEFT lower lobe superior segment posterior medially measuring 1.2 x 1.3 CM. Additional smaller cavitary lesion in the LEFT lower lobe superior segment posterolaterally. Differential considerations in a patient this age include lung abscess due to aspiration, mycobacterial infection, fungal infection, pulmonary infarct, and less likely Rhett's granulomatosis. Recommend correlation with clinical history. 2.? Trace LEFT pleural fluid. 3.? A few hazy groundglass opacities in the LEFT greater than RIGHT lower lobes. 4.? No focal consolidation or pleural fluid. Vitals/I&O/Wt Last Vital Signs Temp 97.5 F L 04/16/23 07:59 Pulse 107 H 04/16/23 08:56 Resp 16 04/16/23 08:56 BP 101/67 04/16/23 07:59 Pulse Ox 97 04/16/23 08:56 O2 Del Method Room Air 04/16/23 08:56 04/15/23 04/16/23 04/16/23 22:59 06:59 14:59 Intake Total 607.5 / 1765.0 1050 / 2815.0 677.292 / 677.292 Balance 607.5 / 1765.0 1050 / 2815.0 677.292 / 677.292 Physical Exam Narrative: Patient is laying supine Euvolemic Abdomen soft Currently on room air Afebrile Neuro exam limited No active distress Caregiver at the bedside Data 04/16/23 05:07 04/16/23 05:47 A&P Assessment and plan (1) Cavitary lesion of lung: (2) Refeeding syndrome: (3) Aspiration pneumonitis: (4) Colitis: (5) Loss of appetite for more than 2 weeks: (6) Intractable nausea and vomiting: (7) Unintentional weight loss of 5% body weight or less within 1 month: (8) Sleep difficulties: (9) Generalized epilepsy: (10) Autism: (11) Nutritional counseling: (12) Hypophosphatemia: Plan 22-year-old male with autism presenting with nausea vomiting dehydration & loss of appetite Transverse colitis Patient had a bowel movement 04/16 Afebrile, leukocytosis trending down Cultures negative Continue Zosyn Lack of appetite, anorexia: Patient has started to eat No nausea vomiting Had a bowel movement this morning I requested PPN however dietitian was not available to start on Tuesday Today he is tolerating diet I will advance his diet to regular We will obtain gallbladder ultrasound Cavitary lesion of lung My concern is related to lung abscess because of recurrent aspiration, suspicion for tuberculosis is low my other differential would include PCP pneumonia however he has remained afebrile, not required oxygen at all, will request LDH most likely will need pulmonary consultation on Tuesday We will request gold QuantiFERON Added vancomycin to Zosyn I will put patient in reverse isolation History epilepsy: I have been giving him IV Keppra switch to p.o. once able to tolerate diet and no more recurrence of emesis Discontinue D5 half-normal saline if no episodes of vomiting by 04/17 Hypophosphatemia related to refeeding syndrome: Repleted No cardiac arrhythmia Full code Regular diet DVT prophylaxis on board Attestations Medical Necessity Statement*: Continue medical treatment Diagnoses Cavitary lesion of lung J98.4 Refeeding syndrome E87.8 Aspiration pneumonitis J69.0 Colitis K52.9 Loss of appetite for more than 2 weeks R63.0 Intractable nausea and vomiting R11.2 Unintentional weight loss of 5% body weight or less within 1 month R63.4 Sleep difficulties G47.9 Generalized epilepsy G40.309 Autism F84.0 Nutritional counseling Z71.3 Hypophosphatemia E83.39
--- NOTE | 2023-04-16 14:05 | PC.PHAR ---
[id number] VANCOMYCIN: 1500 mg q8h should result in trough ~15. level entered before 4th dose 04/17@1400
[2023-04-16] MEDS: cyanocobalamin 1,000 mcg/mL SDV 1000 MCG IM (14:18)
[2023-04-16] MEDS: vancomycin 1,500 MG/300 ML PIGGYBACK 200 MG IV (14:18)
[2023-04-16] MEDS: heparin 5,000 unit/mL INJ 1 mL 5000 UNIT SUBCUT (21:06)
--- NOTE | 2023-04-16 21:41 | PC.NURSE ---
family members at bedside, repositions patient, nurse to turn and reposition per family request.
--- NOTE | 2023-04-16 21:43 | PC.NURSE ---
spoke to patients family in regards to scd's, states i do not think he would handle wearing them, rather leave off
[2023-04-17] VITALS (8 sets, daily range): BP systolic 97–119; BP diastolic 65–81; PULSE 82–125; RESP 17–20; TEMP 36.1–36.4; O2SAT 94–100
[2023-04-17 05:04] LABS: Basophils % 0.2 %; Eosinophils # 0.1 10^3/uL (0.0-0.8); Eosinophils % 1.8 %; Hematocrit 28.8 % (42.0-52.0); Lymphocytes % 35.5 %; Mean Corpuscular HGB Conc 31.3 g/dL (30.0-36.0); Mean Corpuscular Hemoglobin 32.8 pg (28.0-34.0); Mean Corpuscular Volume 105.1 fl (80-94); Mean Platelet Volume 8.4 fL (7.4-10.4); Monocytes # 0.4 10^3/uL (0.2-0.9); Monocytes % 7.3 %; Neutrophils # 3.03 10^3/uL (1.8-8.0); Neutrophils % 54.3 %; Nucleated Red Blood Cells % 0 %; Platelet Count 143 10^3/cmm (130-400); Red Blood Count 2.74 10^6/uL (4.1-5.3); Red Cell Distribution Width 17.6 % (12.1-15.1); White Blood Count 5.6 10^3/uL (4.5-13.0)
[2023-04-17 05:25] LABS: Alanine Aminotransferase 22 U/L (0-41); Alkaline Phosphatase 75 U/L (40-130); Anion Gap 15.3 (5-19); Aspartate Amino Transferase 9 U/L (0-40); Blood Urea Nitrogen 2 mg/dL (6-20); Calcium 8.3 mg/dL (8.5-10.5); Carbon Dioxide 22 mmol/L (22-29); Chloride 102 mmol/L (98-107); Globulin 2.3 g/dL (1.3-4.6); Glucose 90 mg/dL (65-115); Lactate Dehydrogenase 227 U/L (135-225); Osmolality Calculated 278 mOsm/kg (285-295); Potassium 3.3 mmol/L (3.5-5.1); Sodium 136 mmol/L (136-145); Total Bilirubin 1.5 mg/dL (0.15-1.2); Total Protein 5.3 g/dL (6.6-8.7)
[2023-04-17] MEDS: pantoprazole 40 mg SDV IVP (09:13)
[2023-04-17] MEDS: piperacillin-tazobactam 3.375 GM in sodium chloride 0.9% (plus) 50 ML IV ×2 (09:32→17:18)
[2023-04-17] MEDS: dextrose 5%-sod chloride 0.9% 1,000 ML 75 ML IV ×2 (09:33→20:53)
[2023-04-17] MEDS: heparin 5,000 unit/mL INJ 1 mL 5000 UNIT SUBCUT ×2 (09:33→20:51)
[2023-04-17] MEDS: phosphorus 250 mg Tablet PO ×2 (09:33→17:18)
[2023-04-17] MEDS: levETIRAcetam 750 MG in sodium chloride 0.9% (100 ml) 100 ML 430 MG IV (09:39)
--- NOTE | 2023-04-17 10:49 | PC.SOCIAL ---
IMM update IMM updated with patient's mother. Verbalized an understanding. Initialled, dated, timed, and placed in chart.
[2023-04-17 12:09] LABS: Procalcitonin 0.12 ng/mL (0-0.5)
--- NOTE | 2023-04-17 13:33 | PM.PN ---
Subjective Subjective: Hospital course, labs appreciated. Today morning seen with DPOA/caregiver at bedside. As per her patient is at his baseline mentation. Has remained hemodynamically stable and afebrile. Tolerating regular diet well but still having episodes of cough after eating. Vitals appreciated for mild occasional tachycardia. Documented urine output not there. Blood work done today shows a stable CBC without leukocytosis, anemia with hemoglobin of 9, CMP showing a sodium 136, potassium of 3.3, creatinine 0.5. Vitals/I&O/Wt Last Vital Signs Temp 97.3 F L 04/17/23 12:00 Pulse 117 H 04/17/23 12:00 Resp 19 H 04/17/23 12:00 BP 119/65 04/17/23 12:00 Pulse Ox 100 04/17/23 12:00 O2 Del Method Room Air 04/17/23 12:00 04/16/23 04/17/23 04/17/23 22:59 06:59 14:59 Intake Total 1232.708 / 2014.000 720 / 2735.000 1265.0 / 1265.0 Balance 1232.708 / 2014.000 720 / 2735.000 1265.0 / 1265.0 Weight last 48 hrs Weight 91.354 kg Weight 92.59 kg Physical Exam Narrative: General: No acute distress, at his baseline mentation, averbal, making occasional eye contact HEENT: PERRLA, pupils bilaterally equal and reactive Chest: Normal vesicular breath sounds, with occasional coarse crackles present bilaterally more so in right side than left side. CVS: S1-S2 regular, no murmurs, no tachycardia, no gallops, no rubs Abdomen: Soft, nontender, no organomegaly, bowel sounds present Neuro: No focal deficits, no facial deformity, AO x3, power 5/5 in all limbs Data 04/17/23 04:55 04/17/23 04:55 Micro: Microbiology 04/16/23 14:39 C.difficile Toxin B Gene (PCR) - Final Stool - Stool Aspirate 04/16/23 14:39 Occult Blood (FIT) - Final Stool - Stool Aspirate A&P Assessment and plan (1) Cavitary lesion of lung: (2) Aspiration pneumonitis: (3) Intractable nausea and vomiting: (4) Colitis: (5) Refeeding syndrome: (6) Loss of appetite for more than 2 weeks: (7) Unintentional weight loss of 5% body weight or less within 1 month: (8) Sleep difficulties: (9) Generalized epilepsy: (10) Autism: (11) Nutritional counseling: (12) Hypophosphatemia: Plan 22-year-old male with autism presenting with nausea, vomiting, dehydration & loss of appetite found to have transverse colitis and aspiration pneumonitis with cavitated lesions in bilateral lungs. Nausea/vomiting: Most likely in setting of transverse colitis. Resolving. Leukocytosis resolved. Stool studies awaited. For now continue with IV Zosyn. Patient tolerating full liquid diet well for now. Aspiration pneumonitis: Most likely in setting of recurrent aspiration and vomiting. As per patient's caregiver he has many episodes of vomiting and aspiration at home. Tolerating full regular diet well for now with episodes of cough. We will consult speech therapy formally. For now continue with full diet. Sputum culture difficult to obtain given patient mentation. MRSA in 2021 negative. Hold off on vancomycin. Continue with Zosyn. Penicillin on allergy list from before but patient is tolerating Zosyn for now. Aggressive pulmonary toilet as possible. Chest vest. Patient's mentation would not allow him to work well with incentive spirometry and flutter valve. Cavitary lesions of bilateral lung: Finding on CT chest. Most likely in setting of chronic recurrent aspirations possibly needing to lung abscesses. So far fungal and tuberculosis less likely. Patient already on tuberculosis precautions. QuantiFERON sent out. For now we will continue with tuberculosis precautions. We will try to gather sputum samples though would be difficult given patient's mentation. Will consult pulmonology once available for bronchoscopy for cultures. Anorexia: Most likely in setting of poor oral intake. Now developing possible refeeding syndrome. Monitor electrolytes including magnesium and phosphorus daily and replete accordingly. Dietitian consult. Gallbladder ultrasound appreciated for sludge. LFTs within normal limit. Patient's bilirubin elevated but chronically elevated and trending down currently. Lipase on admission negative. Found to have vitamin B12 deficiency. Replete iron for next 3 days. Convert IV to oral home medications including Keppra. Hypertension: At home on propranolol and possible clonidine at bedtime. For now BP stable. Hold off on antihypertensives. Stop IV fluids. Full code Regular diet. Change as per speech evaluation. Heparin for DVT prophylaxis. Protonix for PUD prophylaxis. Discharge plan: Plan to discharge home with caregiver once medically stable possibly after bronchoscopy. Attestations Medical Necessity Statement*: Requires further hospitalization for management of aspiration pneumonitis with multiple cavitary lesions in setting of chronic aspiration in a patient with baseline autism Diagnoses Cavitary lesion of lung J98.4 Aspiration pneumonitis J69.0 Intractable nausea and vomiting R11.2 Colitis K52.9 Refeeding syndrome E87.8 Loss of appetite for more than 2 weeks R63.0 Unintentional weight loss of 5% body weight or less within 1 month R63.4 Sleep difficulties G47.9 Generalized epilepsy G40.309 Autism F84.0 Nutritional counseling Z71.3 Hypophosphatemia E83.39
[2023-04-17] MEDS: vancomycin 1,500 MG/300 ML PIGGYBACK 200 MG IV (13:38)
[2023-04-17] MEDS: cyanocobalamin 1,000 mcg/mL SDV 1000 MCG IM (13:39)
[2023-04-17] MEDS: levETIRAcetam 500 mg Tablet 1000 MG PO (17:18)
[2023-04-18] VITALS (7 sets, daily range): BP systolic 106–118; BP diastolic 71–78; PULSE 90–113; RESP 16–19; TEMP 36.2–36.7; O2SAT 96–100
[2023-04-18] MEDS: piperacillin-tazobactam 3.375 GM in sodium chloride 0.9% (plus) 50 ML IV ×4 (01:09→23:18)
[2023-04-18 06:40] LABS: Basophils % 0.2 %; Eosinophils # 0.1 10^3/uL (0.0-0.8); Eosinophils % 2.1 %; Hematocrit 26.4 % (42.0-52.0); Hemoglobin 8.4 g/dL (11.7-16.6); Lymphocytes # 2.2 10^3/uL (1.5-6.5); Lymphocytes % 41.2 %; Mean Corpuscular HGB Conc 31.8 g/dL (30.0-36.0); Mean Corpuscular Hemoglobin 32.9 pg (28.0-34.0); Mean Corpuscular Volume 103.5 fl (80-94); Mean Platelet Volume 8.7 fL (7.4-10.4); Monocytes # 0.4 10^3/uL (0.2-0.9); Monocytes % 7.3 %; Neutrophils # 2.52 10^3/uL (1.8-8.0); Neutrophils % 48.1 %; Nucleated Red Blood Cells % 0 %; Platelet Count 143 10^3/cmm (130-400); Red Blood Count 2.55 10^6/uL (4.1-5.3); Red Cell Distribution Width 17.2 % (12.1-15.1); White Blood Count 5.2 10^3/uL (4.5-13.0)
[2023-04-18 06:56] LABS: Chol HDL Ratio 1.97 mg/dL (1.0-5.00); Cholesterol 65 mg/dL (0-200); HDL Cholesterol 33 mg/dL (60-100); LDL Cholesterol Calculated 20 mg/dL (50-129); Magnesium 1.5 mg/dL (1.7-2.3); Phosphorus 2.7 mg/dL (2.5-4.5); Triglycerides 58 mg/dL (0-150); VLDL Cholestrol Calculation 12 mg/dL (0-30)
[2023-04-18 06:57] LABS: Alanine Aminotransferase 18 U/L (0-41); Albumin Level 2.8 g/dL (3.5-5.2); Alkaline Phosphatase 73 U/L (40-130); Anion Gap 12.5 (5-19); Aspartate Amino Transferase 7 U/L (0-40); Blood Urea Nitrogen 3 mg/dL (6-20); Calcium 7.9 mg/dL (8.5-10.5); Carbon Dioxide 23 mmol/L (22-29); Chloride 104 mmol/L (98-107); Globulin 2.1 g/dL (1.3-4.6); Glucose 90 mg/dL (65-115); Osmolality Calculated 278 mOsm/kg (285-295); Potassium 3.5 mmol/L (3.5-5.1); Sodium 136 mmol/L (136-145); Total Protein 4.9 g/dL (6.6-8.7)
[2023-04-18] MEDS: sertraline 100 mg Tablet 150 MG PO (08:22)
[2023-04-18] MEDS: phosphorus 250 mg Tablet PO ×2 (08:22→17:11)
[2023-04-18] MEDS: levETIRAcetam 500 mg Tablet 1000 MG PO ×2 (08:22→17:11)
[2023-04-18] MEDS: pantoprazole 40 mg SDV IVP (08:26)
[2023-04-18] MEDS: cyanocobalamin 1,000 mcg/mL SDV 1000 MCG IM (08:26)
[2023-04-18] MEDS: heparin 5,000 unit/mL INJ 1 mL 5000 UNIT SUBCUT ×2 (08:31→21:06)
[2023-04-18 08:50] LABS: Estmated Average Glucose 97
--- NOTE | 2023-04-18 10:58 | PM.CONSULT ---
Providers/Reason For Consult Consulting Physician/Specialty*: Zander Masters MD/pulmonary critical care Reason for Consult*: Cavitary lesions of lung-bronchoscopy for BAL Requesting Physician: Andreas Kaur MD Attending Physician: Andreas Kaur MD Primary Care Provider: Roxann Martinez MD History of Present Illness History of Present Illness Doug Pantoja is a 22 year old male with autism, nonverbal, intellectual disability, recurrent aspiration, seizures-admitted to hospital for lethargy. Patient had CT chest which showed thin-walled cavitary lesions in LLL inferior hilum as well as superior segment of left lower lobe. There were few hazy groundglass opacities in left greater than right lower lobes. There is difficulty obtaining sputum cultures. Patient is placed in airborne isolation for TB precautions and TB QuantiFERON was sent. Pulmonary consult requested for flexible bronchoscopy to obtain BAL samples for cultures I have seen patient at bedside-he is awake and nonverbal Patient's mom at bedside tells me that at baseline patient is nonverbal but does eat. mother tells that there were several occasions previously where he had episodes of aspiration pneumonia. For the last few days he has vomitings, became more lethargic and not eating which prompted them to bring him to ER. There is a possibility he might have aspirated. Mother states that patient has history of seizures Patient does not have any fever spikes, no leukocytosis, normal procalcitonin, Currently he is getting IV Zosyn Review of Systems General: Reports: 10 or more systems reviewed and unremarkable except in HPI and below Medications/Allergies Home Medications Medication Instructions Recorded Confirmed Last Taken Type sertraline 100 mg tablet 150 mg PO DAILY 05/13/22 04/14/23 Unknown History hydroxyzine HCl 25 mg tablet 25 mg PO TID PRN Itching #30 tabs 01/06/23 04/14/23 Unknown Rx clonidine HCl 0.2 mg tablet 0.2 mg PO BEDTIME 04/14/23 04/14/23 Unknown History dicyclomine 20 mg tablet 20 mg PO BID 04/14/23 04/14/23 Unknown History docusate sodium 100 mg capsule 200 mg PO BID PRN Constipation 04/14/23 04/14/23 Unknown History levetiracetam 1,000 mg tablet 1,000 mg PO BID 04/14/23 04/14/23 Unknown History ondansetron 4 mg disintegrating 4 mg PO Q8H PRN Nausea And Vomiting 04/14/23 04/14/23 Unknown History tablet polyethylene glycol 3350 17 gram 17 g PO BID PRN Constipation 04/14/23 04/14/23 Unknown History oral powder packet (Miralax) propranolol 10 mg tablet 10 mg PO BID 04/14/23 04/14/23 Unknown History Allergies Allergy/AdvReac Type Severity Reaction Status Date / Time Penicillins Allergy ADR-Nausea Verified 04/06/23 16:38 Sulfa (Sulfonamide Allergy Unknown Verified 04/06/23 16:38 Antibiotics) Current Medications Generic Name Dose Route Start Last Admin Trade Name Freq PRN Reason Stop Dose Admin Cyanocobalamin 1,000 mcg 04/17/23 11:45 04/18/23 08:26 Cyanocobalamin 1,000 Mcg/Ml Sdv IM 04/19/23 09:01 1,000 mcg DAILY TODD Administration Heparin Sodium (Porcine) 5,000 unit 04/13/23 21:37 04/18/23 08:31 Heparin 5,000 Unit/Ml Inj 1 Ml SUBCUT 5,000 unit Q12H TODD Administration Dextrose/Sodium Chloride 1,000 mls @ 75 mls/hr 04/13/23 21:37 04/18/23 10:22 Dextrose 5%-Sod Chloride 0.9% IV Infused .[id number] TODD Infusion Piperacillin Sod/Tazobactam 50 mls @ 12.5 mls/hr 04/13/23 22:00 04/18/23 08:21 Sod 3.375 gm/ Sodium Chloride IV 12.5 mls/hr Q8H TODD Administration Levetiracetam 1,000 mg 04/17/23 18:00 04/18/23 08:22 Levetiracetam 500 Mg Tablet PO 1,000 mg BID TODD Administration Ondansetron HCl 4 mg 04/13/23 21:37 04/14/23 12:18 Ondansetron 2 Mg/Ml Sdv 2 Ml IVP 4 mg Q6H PRN Administration NAUSEA AND VOMITING Pantoprazole Sodium 40 mg 04/14/23 09:00 04/18/23 08:26 Pantoprazole 40 Mg Sdv IVP 40 mg DAILY TODD Administration Potassium Phosphate 250 mg 04/15/23 09:00 04/18/23 08:22 Phosphorus 250 Mg Tablet PO 250 mg BID TODD Administration Sertraline HCl 150 mg 04/18/23 09:00 04/18/23 08:22 Sertraline 100 Mg Tablet PO 150 mg DAILY TODD Administration Thiamine HCl 100 mg 04/14/23 09:00 04/18/23 08:42 Thiamine 100 Mg/Ml Sdv IVP 100 mg DAILY TODD Administration PFSH Acute PFSH: Medical History Allergic rhinitis Anxiety Autism disorder Epilepsy Managed by Dr. Casanova Folic acid deficiency Generalized seizure Hydrocele Noted May 2019. Decreased in size by report July 2019 and continued report May 2022. Incontinence of feces Pneumonia Vitamin B12 deficiency Surgical History History of tonsillectomy and adenoidectomy Hx of myringotomy Family History Other CAD (coronary artery disease) Cancer Lung disease Migraines, neuralgic Social History Smoking and tobacco status: never smoked Alcohol intake: never Substance/Drug Use: never Adopted: No Caregiver/support person: Yes Lives independently: No Vitals/I&O/Wt Last Vital Signs Temp 97.4 F L 04/18/23 07:29 Pulse 95 04/18/23 08:00 Resp 16 04/18/23 08:00 BP 106/71 04/18/23 07:29 Pulse Ox 97 04/18/23 08:00 O2 Del Method Room Air 04/18/23 08:00 04/17/23 04/18/23 04/18/23 22:59 06:59 14:59 Intake Total 1140 / 2488.333 50 / 2538.333 1120 / 1120 Balance 1140 / 2488.333 50 / 2538.333 1120 / 1120 Weight last 48 hrs Weight 205 lb 12.8 oz Weight 201 lb 6.4 oz Weight 204 lb 2 oz Physical Exam Narrative: General: Awake not in acute distress HEENT: conj clear, EOMI, PERRL, mmm, Neck: supple, no meningismus Heme: no cervical LAP Respiratory: Inspection: No visible deformity of the chest wall Palpation: Trachea is mildly deviated to the right, bilateral symmetric expansion Percussion: Bilateral tympanic percussion note both anterior and posteriorly Auscultation: Bilateral clear to auscultation both anterior and posteriorly, no crackles wheezing or rhonchi Cardiovascular: rrr, nl s1s2, no mrg Abdomen: soft, nt, nd, no r/g, bs+ Extremities: pulses +, no edema, no c/c : no CVA tenderness Skin: intact, no rash MSK: no back or neck pain Neurologic: Motor grossly intact, non communicative-difficult to assess Data 04/19/23 05:43 04/19/23 05:43 Other Labs: Radiology Impressions Chest X-Ray 04/13/23 16:25 IMPRESSION: No acute pulmonary change with prominent levoscoliosis as noted Abdomen/Pelvis CT 04/13/23 16:58 IMPRESSION: 1. Findings consistent with mild segmental colitis involving the transverse colon. Consider C diff colitis. 2. 2 cm cavitating nodule left lower lobe. Recommend dedicated CT chest to exclude other lesions. 3. Large hydrocele within the right scrotal cavity partially visualized. 4. Borderline splenomegaly 5. Enlarging nodular densities that appear to be arising from the skin surface anterior to the pubic bone that should be correlated with clinical exam. COMMENTS: Consistent with the [employer]'s Incidental Findings Committee white paper (J Am Sid Radiol 2018): Any incidental renal lesion less than 1 cm or classified as too small to characterize, or any incidental cystic renal lesion characterized as simple-appearing, is likely benign. No follow-up imaging is recommended for these lesions per consensus recommendations based on imaging criteria. Chest CT 04/14/23 20:25 IMPRESSION: 1. Thick-walled cavitary lesion in the LEFT lower lobe about the inferior hilum measuring 1.8 x 1.9 cm. Additional cavitary lesion in the LEFT lower lobe superior segment posterior medially measuring 1.2 x 1.3 CM. Additional smaller cavitary lesion in the LEFT lower lobe superior segment posterolaterally. Differential considerations in a patient this age include lung abscess due to aspiration, mycobacterial infection, fungal infection, pulmonary infarct, and less likely Rhett's granulomatosis. Recommend correlation with clinical history. 2. Trace LEFT pleural fluid. 3. A few hazy groundglass opacities in the LEFT greater than RIGHT lower lobes. 4. No focal consolidation or pleural fluid. Gallbladder Ultrasound 04/16/23 10:03 IMPRESSION: Mildly distended gallbladder with a moderate amount of sludge. No sonographic evidence of acute cholecystitis. Laboratory Results WBC 5.2 10^3/uL (4.5-13.0) 04/19/23 05:43 RBC 2.22 10^6/uL (4.1-5.3) L 04/19/23 05:43 Hgb 7.3 g/dL (11.7-16.6) L 04/19/23 05:43 Hct 23.1 % (42.0-52.0) L 04/19/23 05:43 MCV 104.1 fl (80-94) H 04/19/23 05:43 MCH 32.9 pg (28.0-34.0) 04/19/23 05:43 MCHC 31.6 g/dL (30.0-36.0) 04/19/23 05:43 RDW 16.8 % (12.1-15.1) H 04/19/23 05:43 Plt Count 135 10^3/cmm (130-400) 04/19/23 05:43 MPV 9.0 fL (7.4-10.4) 04/19/23 05:43 Neut % (Auto) 46.9 % 04/19/23 05:43 Lymph % (Auto) 44.9 % 04/19/23 05:43 Osborne % (Auto) 6.1 % 04/19/23 05:43 Eos % (Auto) 1.1 % 04/19/23 05:43 Baso % (Auto) 0.2 % 04/19/23 05:43 Neut # (Auto) 2.45 10^3/uL (1.8-8.0) 04/19/23 05:43 Lymph # (Auto) 2.4 10^3/uL (1.5-6.5) 04/19/23 05:43 Osborne # (Auto) 0.3 10^3/uL (0.2-0.9) 04/19/23 05:43 Eos # (Auto) 0.1 10^3/uL (0.0-0.8) 04/19/23 05:43 Baso # (Auto) 0.0 10^3/uL (0.0-0.1) 04/19/23 05:43 Nucleated RBC % (auto) 0.4 % 04/19/23 05:43 Nucleated RBCs # 0.0 /100WBC 04/19/23 05:43 Sodium 137 mmol/L (136-145) 04/19/23 05:43 Potassium 3.4 mmol/L (3.5-5.1) L 04/19/23 05:43 Chloride 104 mmol/L (98-107) 04/19/23 05:43 Carbon Dioxide 26 mmol/L (22-29) 04/19/23 05:43 Anion Gap 10.4 (5-19) 04/19/23 05:43 BUN 4 mg/dL (6-20) L 04/19/23 05:43 Creatinine 0.5 mg/dL (0.7-1.2) L 04/19/23 05:43 GFR Calculation 212.0 mL/min (90-130) H 04/19/23 05:43 Glucose 94 mg/dL (65-115) 04/19/23 05:43 Estimat Average Glucose 97 04/16/23 05:07 Hemoglobin A1c 5.0 % (4.0-6.0) 04/16/23 05:07 Calculated Osmolality 281 mOsm/kg (285-295) L 04/19/23 05:43 Lactic Acid 2.1 mmol/L (0.5-2.2) 04/13/23 16:57 Lactic Acid (Sepsis) 2.4 mmol/L (0.5-2.2) H 04/13/23 19:35 Lactate 1.2 mmol/L (0.5-2.2) 04/14/23 08:25 Calcium 8.2 mg/dL (8.5-10.5) L 04/19/23 05:43 Phosphorus 2.9 mg/dL (2.5-4.5) 04/19/23 05:43 Magnesium 1.7 mg/dL (1.7-2.3) 04/19/23 05:43 Iron 178 ug/dL (59-158) H 04/15/23 07:55 TIBC 195 mcg/dl 04/15/23 07:55 % Saturation 91.2 % (20-50) H 04/15/23 07:55 Unsat Iron Binding < 17 ug/dL (112-347) L 04/15/23 07:55 Ferritin 278 ng/mL (30-400) 04/15/23 07:55 Total Bilirubin 0.7 mg/dL (0.15-1.2) 04/19/23 05:43 Direct Bilirubin 1.20 mg/dL (0.00-0.30) H 04/14/23 07:55 Indirect Bilirubin 1.20 04/14/23 07:55 AST 7 U/L (0-40) 04/19/23 05:43 ALT 15 U/L (0-41) 04/19/23 05:43 Alkaline Phosphatase 73 U/L (40-130) 04/19/23 05:43 Lactate Dehydrogenase 227 U/L (135-225) H 04/17/23 04:55 C-Reactive Protein 10.5 mg/L (0.0-4.9) H 04/15/23 07:00 Total Protein 4.7 g/dL (6.6-8.7) L 04/19/23 05:43 Albumin 2.7 g/dL (3.5-5.2) L 04/19/23 05:43 Globulin 2.0 g/dL (1.3-4.6) 04/19/23 05:43 Triglycerides 58 mg/dL (0-150) 04/18/23 06:10 Cholesterol 65 mg/dL (0-200) 04/18/23 06:10 LDL Cholesterol, Calc 20 mg/dL (50-129) L 04/18/23 06:10 Total VLDL Cholesterol 12 mg/dL (0-30) 04/18/23 06:10 HDL Cholesterol 33 mg/dL (60-100) L 04/18/23 06:10 Cholesterol/HDL Ratio 1.97 mg/dL (1.0-5.00) 04/18/23 06:10 Lipase 50 U/L (13-60) 04/13/23 16:57 Vitamin B12 150 pg/mL (232-1245) L 04/15/23 07:55 Folate 2.0 ng/mL (4.5-32.2) L 04/18/23 06:10 Procalcitonin 0.12 ng/mL (0-0.5) 04/17/23 04:55 TSH 1.50 uIU/mL (0.27-4.20) 04/13/23 16:57 Blood Type O Positive 04/14/23 12:04 Rho(D) Type Positive 04/14/23 12:04 Antibody Screen Negative 04/14/23 12:04 Crossmatch See Detail 04/14/23 12:04 Micro: Microbiology 04/17/23 11:29 Enteric Pathogens (PCR) - Final Stool - Stool Aspirate 04/16/23 14:39 C.difficile Toxin B Gene (PCR) - Final Stool - Stool Aspirate A&P Assessment and plan (1) Cavitary lesion of lung: CT evidence of left lower lobe cavitary lesions Given patient clinical history of recurrent aspiration-most likely these are abscesses related to recent vomiting and aspiration Currently patient is on Zosyn He has a low risk for TB/fungal/septic emboli-patient does not have fever spikes of blood cultures are negative so for Patient is immunocompetent-so less likely fungal We will schedule for bronchoscopic evaluation tomorrow to obtain BAL samples for cultures (2) Aspiration pneumonitis: Currently patient is on Zosyn Consult Attestations Medical Necessity Statement: Deferred to hospitalist Time Spent in Patient Care: Greater than 35 minutes Coding Level of Care Code 48029 Diagnoses Cavitary lesion of lung J98.4 Aspiration pneumonitis J69.0 Time Spent (min) 44
[2023-04-18] MEDS: dextrose 5%-sod chloride 0.9% 1,000 ML 75 ML IV (12:03)
[2023-04-18] MEDS: multivitamin therapeutic Tablet 1 TAB PO (12:04)
--- NOTE | 2023-04-18 15:40 | P.PN_ITS ---
Subjective Subjective: No acute events overnight. Patient has remained hemodynamically stable and afebrile. Today morning seen with sister at bedside. Sister is helping him have his meals. He is having small bits of food. Counseled patient's sister to make sure that he eats slowly. Patient has remained hemodynamically stable and afebrile on room air. Blood work appreciated for stable CBC and a CMP with hypomagnesemia, folate acid deficiency and normalization of hyperbilirubinemia. Vitals/I&O/Wt Last Vital Signs Temp 98.1 F 04/18/23 11:40 Pulse 105 H 04/18/23 11:40 Resp 19 H 04/18/23 11:40 BP 108/77 04/18/23 11:40 Pulse Ox 96 04/18/23 11:40 O2 Del Method Room Air 04/18/23 11:40 04/18/23 04/18/23 04/18/23 06:59 14:59 22:59 Intake Total 50 / 2538.333 1462 / 1462 Balance 50 / 2538.333 1462 / 1462 Weight last 48 hrs Weight 93.349 kg Weight 91.354 kg Physical Exam Narrative: General: No acute distress, at his baseline mentation, averbal, making occasi onal eye contact HEENT: PERRLA, pupils bilaterally equal and reactive Chest: Normal vesicular breath sounds, with occasional coarse crackles present bilaterally more so in right side than left side. CVS: S1-S2 regular, no murmurs, no tachycardia, no gallops, no rubs Abdomen: Soft, nontender, no organomegaly, bowel sounds present Neuro: No focal deficits, no facial deformity, AO x3, power 5/5 in all limbs Data 04/18/23 06:10 04/18/23 06:10 Micro: Microbiology 04/17/23 15:46 Gram Stain - Final Sputum - Endotracheal Tube Aspirate Sputum Culture - Preliminary 04/17/23 11:29 Enteric Pathogens (PCR) - Final Stool - Stool Aspirate 04/16/23 14:39 C.difficile Toxin B Gene (PCR) - Final Stool - Stool Aspirate A&P Assessment and plan (1) Cavitary lesion of lung: (2) Aspiration pneumonitis: (3) Intractable nausea and vomiting: (4) Colitis: (5) Refeeding syndrome: (6) Loss of appetite for more than 2 weeks: (7) Unintentional weight loss of 5% body weight or less within 1 month: (8) Sleep difficulties: (9) Generalized epilepsy: (10) Autism: (11) Nutritional counseling: (12) Hypophosphatemia: (13) Vitamin B12 deficiency: (14) Folic acid deficiency: Plan 22-year-old male with autism presenting with nausea, vomiting, dehydration & loss of appetite found to have transverse colitis and aspiration pneumonitis with cavitated lesions in bilateral lungs. Nausea/vomiting: Most likely in setting of transverse colitis. Resolving. Leukocytosis resolved. Stool studies awaited. For now continue with IV Zosyn to finish a 5-day course. Patient tolerating full liquid diet well for now. Aspiration pneumonitis: Most likely in setting of recurrent aspiration and vomiting. As per patient's caregiver he has many episodes of vomiting and aspiration at home. Tolerating full regular diet well for now with episodes of cough. Appreciate speech therapy evaluation. Diet to be modified accordingly. Sputum culture difficult to obtain given patient mentation. Continue with Zosyn. Penicillin on allergy list from before but patient is tolerating Zosyn for now. Aggressive pulmonary toilet as possible. Chest vest. Patient's mentation would not allow him to work well with incentive spirometry and flutter valve. Cavitary lesions of bilateral lung: Finding on CT chest. Most likely in setting of chronic recurrent aspirations possibly leading to lung abscesses. So far fungal and tuberculosis less likely. Patient already on tuberculosis precautions. QuantiFERON sent out. Pulmonology consulted. Plan for bronchoscopy in a.m. N.p.o. after midnight. Anorexia: Most likely in setting of poor oral intake. Now developing possible refeeding syndrome. Monitor electrolytes including magnesium and phosphorus daily and replete accordingly. Dietitian consult. Gallbladder ultrasound appreciated for sludge. LFTs within normal limit. Patient's bilirubin elevated but chronically elevated and trending down currently. Lipase on admission negative. Found to have vitamin B12 deficiency. Replete cyanocobalamin for 3 days. Day 2/3. Replete folic acid, IV magnesium and oral magnesium. Continue with oral phosphate. Start on multivitamin. Repeat BMP, magnesium and phosphorus in a.m. Hypertension: At home on propranolol and possible clonidine at bedtime. For now BP stable. Hold off on antihypertensives. Patient does have mild tachycardia. We will plan to switch from propranolol to low-dose metoprolol. Full code Regular diet. Adjust as per speech evaluation. Heparin for DVT prophylaxis. Protonix for PUD prophylaxis. Discharge plan: Plan to discharge home with caregiver once medically stable possibly after bronchoscopy. Attestations Medical Necessity Statement*: Patient requires further hospitalization and management for evaluation of recurrent aspiration pneumonia leading to multiple cavitary lesions in lungs as patient requires bronchoscopy, refeeding syndrome requiring multiple electrolyte supplementation and monitoring, severe vitamin B12 and folic acid deficiency Diagnoses Cavitary lesion of lung J98.4 Aspiration pneumonitis J69.0 Intractable nausea and vomiting R11.2 Colitis K52.9 Refeeding syndrome E87.8 Loss of appetite for more than 2 weeks R63.0 Unintentional weight loss of 5% body weight or less within 1 month R63.4 Sleep difficulties G47.9 Generalized epilepsy G40.309 Autism F84.0 Nutritional counseling Z71.3 Hypophosphatemia E83.39 Vitamin B12 deficiency E53.8 Folic acid deficiency E53.8
[2023-04-18] MEDS: magnesium oxide 400 mg tablet PO (17:11)
[2023-04-18] MEDS: folic acid 1 mg Tablet PO (17:11)
[2023-04-19] VITALS (19 sets, daily range): BP systolic 96–130; BP diastolic 46–79; PULSE 85–111; RESP 14–18; TEMP 36.2–36.6; O2SAT 95–100
[2023-04-19 05:53] LABS: Basophils % 0.2 %; Eosinophils # 0.1 10^3/uL (0.0-0.8); Eosinophils % 1.1 %; Hematocrit 23.1 % (42.0-52.0); Hemoglobin 7.3 g/dL (11.7-16.6); Lymphocytes # 2.4 10^3/uL (1.5-6.5); Lymphocytes % 44.9 %; Mean Corpuscular HGB Conc 31.6 g/dL (30.0-36.0); Mean Corpuscular Hemoglobin 32.9 pg (28.0-34.0); Mean Corpuscular Volume 104.1 fl (80-94); Monocytes # 0.3 10^3/uL (0.2-0.9); Monocytes % 6.1 %; Neutrophils # 2.45 10^3/uL (1.8-8.0); Neutrophils % 46.9 %; Nucleated Red Blood Cells % 0.4 %; Platelet Count 135 10^3/cmm (130-400); Red Blood Count 2.22 10^6/uL (4.1-5.3); Red Cell Distribution Width 16.8 % (12.1-15.1); White Blood Count 5.2 10^3/uL (4.5-13.0)
[2023-04-19 06:14] LABS: Alanine Aminotransferase 15 U/L (0-41); Albumin Level 2.7 g/dL (3.5-5.2); Alkaline Phosphatase 73 U/L (40-130); Anion Gap 10.4 (5-19); Aspartate Amino Transferase 7 U/L (0-40); Blood Urea Nitrogen 4 mg/dL (6-20); Calcium 8.2 mg/dL (8.5-10.5); Carbon Dioxide 26 mmol/L (22-29); Chloride 104 mmol/L (98-107); Glucose 94 mg/dL (65-115); Magnesium 1.7 mg/dL (1.7-2.3); Osmolality Calculated 281 mOsm/kg (285-295); Phosphorus 2.9 mg/dL (2.5-4.5); Potassium 3.4 mmol/L (3.5-5.1); Sodium 137 mmol/L (136-145); Total Bilirubin 0.7 mg/dL (0.15-1.2); Total Protein 4.7 g/dL (6.6-8.7)
--- NOTE | 2023-04-19 08:26 | PC.NURSE ---
This nurse spoke to mom, Gail, via phone at [phone] to obtain verbal consent for patient to receive a bronchoscopy performed by Dr. Masters. This nurse obtained consent with a second nurse, Magali Chamberlain RN at 0824.
--- NOTE | 2023-04-19 08:35 | ANES.PREANE2 ---
Pre-Anesthetic Assessment Height/Weight: Height 1.88 m Weight 92.986 kg Temp Pulse Resp BP Pulse Ox O2 Del Method 97.5 F L 90 16 103/68 98 Room Air 04/19/23 08:00 04/19/23 08:00 04/19/23 08:00 04/19/23 08:00 04/19/23 08:00 04/19/23 08:00 Preop Diagnosis: vomiting Operation Date: 04/19/23 08:30 Proposed Procedures p Bronchoscopy(Not Applicable) - Zander Dobbins DatarMD Familial anesthetic complications: none Was Beta Azalia taken within 24 hours: N/A Social No alcohol and No tobacco Exam alert, oriented x 3, clear to auscultation bilaterally and regular rate & rhythm Airway Submandibular: within normal limits Cervical ROM: within normal limits Mallampati: Class II Dentition: full Pulmonary aspiration CV/HEM None reported None reported Hepatic None reported GI None reported Metabolic None reported Musc/skel None reported Neuropsych Seizure autism non verbal Anesthetic Plan ASA status: 3 Anesthesia: General Risk of > 500 ml blood loss (7ml/kg in children): No Medications/Allergies Home Medications Medication Instructions Recorded Confirmed Last Taken Type sertraline 100 mg tablet 150 mg PO DAILY 05/13/22 04/14/23 Unknown History hydroxyzine HCl 25 mg tablet 25 mg PO TID PRN Itching #30 tabs 01/06/23 04/14/23 Unknown Rx clonidine HCl 0.2 mg tablet 0.2 mg PO BEDTIME 04/14/23 04/14/23 Unknown History dicyclomine 20 mg tablet 20 mg PO BID 04/14/23 04/14/23 Unknown History docusate sodium 100 mg capsule 200 mg PO BID PRN Constipation 04/14/23 04/14/23 Unknown History levetiracetam 1,000 mg tablet 1,000 mg PO BID 04/14/23 04/14/23 Unknown History ondansetron 4 mg disintegrating 4 mg PO Q8H PRN Nausea And Vomiting 04/14/23 04/14/23 Unknown History tablet polyethylene glycol 3350 17 gram 17 g PO BID PRN Constipation 04/14/23 04/14/23 Unknown History oral powder packet (Miralax) propranolol 10 mg tablet 10 mg PO BID 04/14/23 04/14/23 Unknown History Allergies Allergy/AdvReac Type Severity Reaction Status Date / Time Penicillins Allergy ADR-Nausea Verified 04/06/23 16:38 Sulfa (Sulfonamide Allergy Unknown Verified 04/06/23 16:38 Antibiotics) Current Medications Generic Name Dose Route Start Last Admin Trade Name Freq PRN Reason Stop Dose Admin Cyanocobalamin 1,000 mcg 04/17/23 11:45 04/18/23 08:26 Cyanocobalamin 1,000 Mcg/Ml Sdv IM 1,000 mcg DAILY TODD Administration Folic Acid 1 mg 04/18/23 18:00 04/18/23 17:11 Folic Acid 1 Mg Tablet PO 1 mg BID TODD Administration Heparin Sodium (Porcine) 5,000 unit 04/13/23 21:37 04/18/23 21:06 Heparin 5,000 Unit/Ml Inj 1 Ml SUBCUT 5,000 unit Q12H TODD Administration Piperacillin Sod/Tazobactam 50 mls @ 12.5 mls/hr 04/13/23 22:00 04/19/23 07:02 Sod 3.375 gm/ Sodium Chloride IV Infused Q8H TODD Infusion Levetiracetam 1,000 mg 04/17/23 18:00 04/18/23 17:11 Levetiracetam 500 Mg Tablet PO 1,000 mg BID TODD Administration Magnesium Oxide 400 mg 04/18/23 18:00 04/18/23 17:11 Magnesium Oxide 400 Mg Tablet PO 400 mg BID TODD Administration Multivitamins Therapeutic 1 tab 04/18/23 11:15 04/18/23 12:04 Multivitamin Therapeutic Tablet PO 1 tab DAILY TODD Administration Ondansetron HCl 4 mg 04/13/23 21:37 04/14/23 12:18 Ondansetron 2 Mg/Ml Sdv 2 Ml IVP 4 mg Q6H PRN Administration NAUSEA AND VOMITING Pantoprazole Sodium 40 mg 04/14/23 09:00 04/18/23 08:26 Pantoprazole 40 Mg Sdv IVP 40 mg DAILY TODD Administration Potassium Phosphate 250 mg 04/15/23 09:00 04/18/23 17:11 Phosphorus 250 Mg Tablet PO 250 mg BID TODD Administration Sertraline HCl 150 mg 04/18/23 09:00 04/18/23 08:22 Sertraline 100 Mg Tablet PO 150 mg DAILY TODD Administration Thiamine HCl 100 mg 04/14/23 09:00 04/18/23 08:42 Thiamine 100 Mg/Ml Sdv IVP 100 mg DAILY TODD Administration PFSH Anesthesia Medical History Allergic rhinitis Anxiety Autism disorder Epilepsy Managed by Dr. Casanova Folic acid deficiency Generalized seizure Hydrocele Noted May 2019. Decreased in size by report July 2019 and continued report May 2022. Incontinence of feces Pneumonia Vitamin B12 deficiency Surgical History History of tonsillectomy and adenoidectomy Hx of myringotomy Family History Other CAD (coronary artery disease) Cancer Lung disease Migraines, neuralgic Social History Smoking and tobacco status: never smoked Alcohol intake: never Substance/Drug Use: never Adopted: No Caregiver/support person: Yes Lives independently: No Data Anesthesia 04/19/23 05:43 04/19/23 05:43 Short CBC 04/18/23 04/19/23 Range/Units 06:10 05:43 WBC 5.2 5.2 (4.5-13.0) 10^3/uL Hgb 8.4 L 7.3 L (11.7-16.6) g/dL Hct 26.4 L 23.1 L (42.0-52.0) % MCV 103.5 H 104.1 H (80-94) fl Plt Count 143 135 (130-400) 10^3/cmm Neut % (Auto) 48.1 46.9 % Neut # (Auto) 2.52 2.45 (1.8-8.0) 10^3/uL BMP 04/18/23 04/19/23 06:10 05:43 Sodium 136 137 Potassium 3.5 3.4 L Chloride 104 104 Carbon Dioxide 23 26 BUN 3 L 4 L Creatinine 0.5 L 0.5 L Glucose 90 94 Calcium 7.9 L 8.2 L Liver Function 04/18/23 04/19/23 Range/Units 06:10 05:43 Total Bilirubin 1.0 0.7 (0.15-1.2) mg/dL AST 7 7 (0-40) U/L ALT 18 15 (0-41) U/L Alkaline Phosphatase 73 73 (40-130) U/L Albumin 2.8 L 2.7 L (3.5-5.2) g/dL Microbiology 04/13/23 19:40 Blood Culture - Final Blood NO GROWTH AFTER 5 DAYS 04/13/23 19:35 Blood Culture - Final Blood NO GROWTH AFTER 5 DAYS 04/17/23 15:46 Gram Stain - Final Sputum - Endotracheal Tube Aspirate Sputum Culture - Preliminary Cardiac Studies: No Data to Display
[2023-04-19] MEDS: lidocaine 1% INJ 10 mL (per mL) XX (08:45)
[2023-04-19] MEDS: sodium chloride 0.9% 1,000 ML 30 ML IV (08:49)
--- NOTE | 2023-04-19 09:07 | PM.OP ---
Operative Report Date of procedure: April 19, 2023 Pre-op diagnosis: Preop Diagnosis cavitary lung lesions Post-op diagnosis: same Procedure done: Procedure : 17875 Dx Bronchoscope w/Washings or airway inspection 68858 Dx Bronchoscope w/BAL 44232 Bronchoscopy w/ therapeutic aspiration of the tracheobronchial tree (clearance of airway secretions, removal of mucus plugs) Brief History: 22-year-old Mr. Doug Pantoja is a patient with autism and intellectual disability, noncommunicative at baseline has history of recurrent aspirations-recently admitted to hospital for lethargy, decreased appetite, vomiting. CT chest showed 2 left lower lobe cavitary lesions. Suspicious for aspiration pneumonia. Patient is unable to give sputum for cultures. He is in airborne isolation under TB precautions. Low likelihood of having malignancy We will schedule for bronchoscopic evaluation and obtaining BAL to send for cultures Procedure: Procedure : 52082 Dx Bronchoscope w/Washings or airway inspection 78514 Dx Bronchoscope w/BAL 98899 Bronchoscopy w/ therapeutic aspiration of the tracheobronchial tree (clearance of airway secretions, removal of mucus plugs) Pre-Operative Diagnosis: Left lower lobe cavitary lesions Post-Operative Diagnosis: Same Indication: CT chest showing left lower lobe cavitary lesions and patient with recurrent aspiration risk Consent: Consents were obtained from [facility] and placed in the chart Pre-procedure Evaluation: Patient was evaluated clinically and ancillary testing reviewed. The risk of having active MTB infection is very low in my clinical judgement. ASA: 3 Malampati score: unable to evaluate due to presence of endotracheal tube Time out: Performed by the procedure team and nursing staff. Vent support maintained on Fio2 100. Anesthesia: Managed as per anesthesia Local anesthesia: The kasandra in the right and left mainstem bronchi were anesthetized with 1% lidocaine, 3 mL Summary of Significant Findings: -Bronchoscope passed through ET tube used for initial inspection (93201) and airway clearance. The scope was advanced through the ET tube. The lower trachea mucosa appeared normal, no endotracheal lesion was seen. The kasandra was sharp. The kasandra, the right and left mainstem bronchi are anesthetized with 1% lidocaine. In a systematic manner bilateral bronchial tree was then examined. The bronchoscope was then introduced into the right mainstem bronchus. The right upper lobe, right middle lobe and right lower lobe bronchi were examined up to the third subsegmental level and no abnormalities were identified. The mucosa appeared normal with no endobronchial lesions, active bleeding. There were some secretions which were suctioned right away.(26856) The bronchoscope was advanced into the left mainstem bronchus. The mucosa appeared normal with no endobronchial lesions. The left upper lobe, lingula and left lower lobe bronchi were examined up to the third subsegmental level and no abnormalities were identified. Mucosa appeared normal with no endobronchial lesion, active bleeding or mucous plug. There were some clear secretions in lower lobe-which were suctioned right away. .(88602) Then the bronchoscope was wedged into superior segment of left lower lobe-30 cc normal saline instilled-aspirated bronc alveolar lavage (43420) 15 cc clear fluid. The bronchoscope was then removed and the procedure terminated. Estimated Blood Loss: None Specimens: Bronchoalveolar lavage (84231) from left lower lobe sent for fluid analysis, bacterial cultures, MTB PCR, fungal cultures,. That Asperillus antigen Complications:None; patient tolerated the procedure well. Disposition: Patient will be transferred back to floor in stable condition Surgeon: Zander Masters MD, [facility] Pulmonary critical Care Medicine [facility]
[2023-04-19] MEDS: piperacillin-tazobactam 3.375 GM in sodium chloride 0.9% (plus) 50 ML IV ×2 (10:53→16:57)
[2023-04-19 11:03] LABS: Apprearance, Bronch Wash Clear (CLEAR); Color, Bronc Wash Colorless
[2023-04-19 13:20] LABS: Quantiferon Mitogen >10.00 IU/mL; Quantiferon Nil 0.03 IU/mL; Quantiferon Plus TB1 0.01 IU/mL; Quantiferon TB Gold NEGATIVE (NEGATIVE)
--- NOTE | 2023-04-19 13:54 | ANE.PACU2 ---
Inpatient post-anesthesia follow up: Airway intact: Yes Vital signs: Temperature 97.6 F Pulse Rate 104 Respiratory Rate 16 Blood Pressure 104/68 Pulse Oximetry 97 Oxygen Delivery Me thod Room Air Oxygen Flow Rate Fraction of Inspir ed Oxygen Hydration adequate: Yes Nausea and vomiting: Yes Pain level: 1 Mental status: Baseline
[2023-04-19 14:18] LABS: Total Cells Counted Bronch 200
[2023-04-19 14:19] LABS: PATH Referral Yes
--- NOTE | 2023-04-19 14:49 | PM.PN ---
Subjective Subjective: No acute events overnight. Patient underwent bronchoscopy today. Seen post bronchoscopy in the room on room air with sister at bedside. Patient is at baseline mentation. Tolerated procedure well. Has remained medically stable and afebrile. Blood work appreciated for stable CBC, CMP normal magnesium and phosphorus levels today. Sputum culture growing coag positive staph Vitals/I&O/Wt Last Vital Signs Temp 97.6 F 04/19/23 10:58 Pulse 104 H 04/19/23 12:29 Resp 16 04/19/23 12:29 BP 104/68 04/19/23 10:58 Pulse Ox 97 04/19/23 12:29 O2 Del Method Room Air 04/19/23 12:29 04/18/23 04/19/23 04/19/23 22:59 06:59 14:59 Intake Total 838.75 / 2300.75 0 / 2300.75 970 / 970 Output Total 0 / 0 Balance 838.75 / 2300.75 0 / 2300.75 970 / 970 Weight last 48 hrs Weight 92.986 kg Weight 93.349 kg Physical Exam Narrative: General: No acute distress, at his baseline mentation, averbal, making occasional eye contact HEENT: PERRLA, pupils bilaterally equal and reactive Chest: Normal vesicular breath sounds, with occasional coarse crackles present bilaterally more so in right side than left side. CVS: S1-S2 regular, no murmurs, no tachycardia, no gallops, no rubs Abdomen: Soft, nontender, no organomegaly, bowel sounds present Neuro: No focal deficits, no facial deformity, AO x3, power 5/5 in all limbs Data 04/19/23 05:43 04/19/23 05:43 Micro: Microbiology 04/19/23 08:56 Gram Stain - Final Lung Left Lower Lobe - #1 04/17/23 15:46 Gram Stain - Final Sputum - Endotracheal Tube Aspirate Sputum Culture - Preliminary Coag positive Staphylococcus 04/13/23 19:40 Blood Culture - Final Blood NO GROWTH AFTER 5 DAYS 04/13/23 19:35 Blood Culture - Final Blood NO GROWTH AFTER 5 DAYS A&P Assessment and plan (1) Cavitary lesion of lung: (2) Aspiration pneumonitis: (3) Intractable nausea and vomiting: (4) Colitis: (5) Refeeding syndrome: (6) Loss of appetite for more than 2 weeks: (7) Unintentional weight loss of 5% body weight or less within 1 month: (8) Sleep difficulties: (9) Generalized epilepsy: (10) Autism: (11) Nutritional counseling: (12) Hypophosphatemia: (13) Vitamin B12 deficiency: (14) Folic acid deficiency: Plan 22-year-old male with autism presenting with nausea, vomiting, dehydration & loss of appetite found to have transverse colitis and aspiration pneumonitis with cavitated lesions in bilateral lungs. Aspiration pneumonitis: Most likely in setting of recurrent aspiration and vomiting. As per patient's caregiver he has many episodes of vomiting and aspiration at home. Tolerating full regular diet well for now with episodes of cough. Appreciate speech therapy evaluation. Sputum culture growing coag positive staph. Follow sputum and bronc cultures. Continue with Zosyn. Penicillin on allergy list from before but patient is tolerating Zosyn for now. Will remove from allergy list. Aggressive pulmonary toilet as possible. Continue chest vest. Patient's mentation would not allow him to work well with incentive spirometry and flutter valve. Cavitary lesions of bilateral lung: Finding on CT chest. Most likely in setting of chronic recurrent aspirations possibly leading to lung abscesses. QuantiFERON negative. Appreciate pulmonary recommendations. Post bronchoscopy on 04/19. Follow-up study and culture results. We will add MTB PCR to bronchoscopy samples Anorexia: Most likely in setting of poor oral intake. Refeeding syndrome. Monitor electrolytes including magnesium and phosphorus daily and replete accordingly. Appreciate dietitian consult. Gallbladder ultrasound appreciated for sludge. LFTs within normal limit. Patient's bilirubin elevated but chronically elevated and trending down currently. Lipase on admission negative. Found to have vitamin B12 deficiency. Replete IM cyanocobalamin for 3 days followed by oral. Continue with oral magnesium and phosphorus repletion. Repeat BMP, magnesium and phosphorus in a.m. Nausea/vomiting: Most likely in setting of transverse colitis. Resolving. Leukocytosis resolved. Stool studies awaited. For now continue with IV Zosyn to finish a 5-day course. Patient tolerating regular diet well for now. Hypertension: At home on propranolol and possible clonidine at bedtime. For now BP stable. Hold off on antihypertensives. Patient does have mild tachycardia. We will plan to switch from propranolol to low-dose metoprolol. Full code Regular diet. Adjust as per speech evaluation. Heparin for DVT prophylaxis. Protonix for PUD prophylaxis. Discharge plan: Plan to discharge home with caregiver once medically stable possibly after bronchoscopy in next 24 hours. Attestations Medical Necessity Statement*: Requires further hospitalization for post bronchoscopy care as sputum and bronchoscopy cultures are followed up Diagnoses Cavitary lesion of lung J98.4 Aspiration pneumonitis J69.0 Intractable nausea and vomiting R11.2 Colitis K52.9 Refeeding syndrome E87.8 Loss of appetite for more than 2 weeks R63.0 Unintentional weight loss of 5% body weight or less within 1 month R63.4 Sleep difficulties G47.9 Generalized epilepsy G40.309 Autism F84.0 Nutritional counseling Z71.3 Hypophosphatemia E83.39 Vitamin B12 deficiency E53.8 Folic acid deficiency E53.8
--- NOTE | 2023-04-19 15:01 | PC.SOCIAL ---
IMM update IMM updated with patient's mother. Verbalized an understanding. Initialled, dated, timed, and placed in chart.
[2023-04-19] MEDS: levETIRAcetam 500 mg Tablet 1000 MG PO (16:57)
[2023-04-19] MEDS: phosphorus 250 mg Tablet PO (16:57)
[2023-04-19] MEDS: folic acid 1 mg Tablet PO (16:57)
[2023-04-19] MEDS: magnesium oxide 400 mg tablet PO (16:57)
[2023-04-19] MEDS: heparin 5,000 unit/mL INJ 1 mL 5000 UNIT SUBCUT (21:31)
[2023-04-20] MEDS: piperacillin-tazobactam 3.375 GM in sodium chloride 0.9% (plus) 50 ML IV ×2 (00:23→08:57)
[2023-04-20 03:00] VITALS: BP 112/67; PULSE 89; RESP 18; TEMP 36.6; O2SAT 97
[2023-04-20 05:39] LABS: Basophils % 0.2 %; Eosinophils % 0.3 %; Hematocrit 23.3 % (42.0-52.0); Hemoglobin 7.4 g/dL (11.7-16.6); Lymphocytes # 2.4 10^3/uL (1.5-6.5); Lymphocytes % 38.4 %; Mean Corpuscular HGB Conc 31.8 g/dL (30.0-36.0); Mean Corpuscular Hemoglobin 32.2 pg (28.0-34.0); Mean Corpuscular Volume 101.3 fl (80-94); Mean Platelet Volume 8.9 fL (7.4-10.4); Monocytes # 0.4 10^3/uL (0.2-0.9); Monocytes % 6.6 %; Neutrophils # 3.32 10^3/uL (1.8-8.0); Neutrophils % 52.3 %; Nucleated Red Blood Cells % 0.6 %; Platelet Count 196 10^3/cmm (130-400); Red Cell Distribution Width 15.9 % (12.1-15.1); White Blood Count 6.4 10^3/uL (4.5-13.0)
[2023-04-20 05:56] LABS: Magnesium 1.9 mg/dL (1.7-2.3); Phosphorus 2.8 mg/dL (2.5-4.5)
[2023-04-20 06:07] VITALS: PULSE 81
[2023-04-20 07:00] VITALS: BP 97/64; PULSE 80; RESP 16; TEMP 36.4; O2SAT 97
[2023-04-20 08:45] VITALS: PULSE 80; RESP 16; O2SAT 97
[2023-04-20] MEDS: sertraline 100 mg Tablet 150 MG PO (08:57)
[2023-04-20] MEDS: levETIRAcetam 500 mg Tablet 1000 MG PO (08:58)
[2023-04-20] MEDS: multivitamin therapeutic Tablet 1 TAB PO (08:58)
[2023-04-20] MEDS: phosphorus 250 mg Tablet PO (08:59)
[2023-04-20] MEDS: folic acid 1 mg Tablet PO (08:59)
[2023-04-20] MEDS: heparin 5,000 unit/mL INJ 1 mL 5000 UNIT SUBCUT (08:59)
[2023-04-20] MEDS: cyanocobalamin 1,000 mcg/mL SDV 1000 MCG IM (08:59)
[2023-04-20] MEDS: magnesium oxide 400 mg tablet PO (08:59)
[2023-04-20] MEDS: pantoprazole 40 mg SDV IVP (09:24)
--- NOTE | 2023-04-20 10:28 | P.DS_ITS ---
Discharge Providers Date of Admission: 04/14/23 16:19 Date of Discharge: April 20, 2023 Attending Provider at Admission: Álvaro Kuhn MD Attending Provider at Discharge: Andreas Kaur MD Consults: Pulmonary: Dr. Masters Primary Care Provider: Roxann Martinez MD Diagnoses at Discharge Discharge Diagnosis (1) Cavitary lesion of lung: Status: Acute (2) Aspiration pneumonitis: Status: Acute (3) Intractable nausea and vomiting: Status: Acute (4) Colitis: Status: Acute (5) Refeeding syndrome: Status: Acute (6) Loss of appetite for more than 2 weeks: Status: Acute (7) Unintentional weight loss of 5% body weight or less within 1 month: Status: Acute (8) Sleep difficulties: Status: Acute (9) Generalized epilepsy: Status: Acute (10) Autism: Status: Acute (11) Nutritional counseling: Status: Acute (12) Hypophosphatemia: Status: Acute (13) Vitamin B12 deficiency: Status: Acute (14) Folic acid deficiency: Status: Acute Reason for Visit Reason for Visit: n/v, not eating Brief History: History as per HPI: Doug Pantoja is a 22 year old male with intellectual disability, presented to the hospital with chief complaint of anorexia, inability to eat, recurrent vomiting.? Caregiver at the bedside stating that they have not noticed any fever there is a chance he might have aspirated because he does not change his position when he vomits most of the time, he is incontinent at baseline, does not communicate, able to ambulate, a good eater on a regular day. Hospital Course Hospital Course Patient was admitted to the hospital further evaluation and management of nausea and vomiting. On admission CT abdomen pelvis was done which is consistent with colitis. He was started on broad-spectrum antibiotics. On CT abdomen pelvis there was also concern for possible cavitary lesions in the lungs for which CT chest was done and the lesions were confirmed. Patient during hospitalization remained on room air. Pulmonology was consulted and he underwent bronchoscopy on 04/19. Cultures were taken. Sputum culture came back positive for MRSA though bronchoscopy cultures are still pending. Stool studies were negative for C. difficile and bacterial pathogen. With IV antibiotics patient's nausea vomiting and appetite improved. For concerns for multiple cavitary lesions secondary to recurrent episodes of nausea and vomiting and malnutrition speech therapy and dietitian were consulted. Patient continued to do well with regular diet. After starting of regular diet patient did develop refeeding syndrome and his electrolytes were monitored and repleted. During hospitalization with IV fluids patient did develop anemia with hemoglobin down to 7-7.5 but remained stable for the last few days. Patient did not have any episodes of bleeding. Patient was found to have severe vitamin B12 and folic acid deficiency. He was treated with IM vitamin B12 shots and are being converted to oral medications on discharge. He is been discharged in hemodynamically stable condition on oral vitamin B12, folate acid, multivitamin, magnesium and phosphorus repletion along with oral linezolid for next 14 days. He is to follow-up with his primary care provider onsite appointment and with pulmonary on set appointment as well. Physical Exam Narrative: General: No acute distress, at his baseline mentation, averbal, making occasional eye contact HEENT: PERRLA, pupils bilaterally equal and reactive Chest: Normal vesicular breath sounds, with occasional coarse crackles present bilaterally more so in right side than left side. CVS: S1-S2 regular, no murmurs, no tachycardia, no gallops, no rubs Abdomen: Soft, nontender, no organomegaly, bowel sounds present Neuro: No focal deficits, no facial deformity, AO x3, power 5/5 in all limbs Discharge Data Studies Completed and Pending Completed Studies During Hospitalization Category Date Time Status CT abdomen pelvis w con* [id number] Stat Cat Scan 04/13/23 16:[address] chest wo con [id number] Routine Cat Scan 04/14/23 20:25 Completed XR chest 1V portable [id number] Stat Exams 04/13/23 16:25 Completed US gall bladder [id number] Stat Ultrasound 04/16/23 10:03 Completed Pending at discharge Category Date Time Status Aspergillus Antigen, EIA BAL Routine Lab 04/19/23 08:56 Received Bronch Washing Culture & GS Routine Lab 04/19/23 08:56 Results CDIFF [Clostridioides Difficile PCR] Routine Lab 04/16/23 14:39 Received Fecal Occult Blood [Immunochemical Fecal OCB] Routine Lab 04/20/23 09:57 Uncollected Fungal Culture not HR/SK/BL Routine Lab 04/19/23 08:56 Received MTB Complex Rifampin PCR Routine Lab 04/19/23 08:56 Received Mycobacteria, Culture w/Fluor Routine Lab 04/19/23 08:56 Received Sputum Culture and Gram Stain Routine Lab 04/17/23 15:46 Results Urinalysis Stat Lab 04/13/23 16:03 Uncollected stool Ova and Parasite [Enteric Parasite Panel by PCR] Lab 04/13/23 21:37 Uncollected Routine Radiology Impressions Chest X-Ray 04/13/23 16:25 IMPRESSION: No acute pulmonary change with prominent levoscoliosis as noted Abdomen/Pelvis CT 04/13/23 16:58 IMPRESSION: 1. Findings consistent with mild segmental colitis involving the transverse colon. Consider C diff colitis. 2. 2 cm cavitating nodule left lower lobe. Recommend dedicated CT chest to exclude other lesions. 3. Large hydrocele within the right scrotal cavity partially visualized. 4. Borderline splenomegaly 5. Enlarging nodular densities that appear to be arising from the skin surface anterior to the pubic bone that should be correlated with clinical exam. COMMENTS: Consistent with the [employer]'s Incidental Findings Committee white paper (J Am Sid Radiol 2018): Any incidental renal lesion less than 1 cm or classified as too small to characterize, or any incidental cystic renal lesion characterized as simple-appearing, is likely benign. No follow-up imaging is recommended for these lesions per consensus recommendations based on imaging criteria. Chest CT 04/14/23 20:25 IMPRESSION: 1. Thick-walled cavitary lesion in the LEFT lower lobe about the inferior hilum measuring 1.8 x 1.9 cm. Additional cavitary lesion in the LEFT lower lobe superior segment posterior medially measuring 1.2 x 1.3 CM. Additional smaller cavitary lesion in the LEFT lower lobe superior segment posterolaterally. Differential considerations in a patient this age include lung abscess due to aspiration, mycobacterial infection, fungal infection, pulmonary infarct, and less likely Rhett's granulomatosis. Recommend correlation with clinical history. 2. Trace LEFT pleural fluid. 3. A few hazy groundglass opacities in the LEFT greater than RIGHT lower lobes. 4. No focal consolidation or pleural fluid. Gallbladder Ultrasound 04/16/23 10:03 IMPRESSION: Mildly distended gallbladder with a moderate amount of sludge. No sonographic evidence of acute cholecystitis. Microbiology 04/19/23 08:56 Lung Left Lower Lobe - #1 Gram Stain - Final 04/19/23 08:56 Lung Left Lower Lobe - #1 Bronchial Washings Culture - Preliminary Coag positive Staphylococcus 04/17/23 15:46 Sputum - Endotracheal Tube Aspirate Gram Stain - Final 04/17/23 15:46 Sputum - Endotracheal Tube Aspirate Sputum Culture - Final Methicillin Resis Staph Aureus 04/13/23 19:40 Blood Blood Culture - Final NO GROWTH AFTER 5 DAYS 04/13/23 19:35 Blood Blood Culture - Final NO GROWTH AFTER 5 DAYS 04/17/23 11:29 Stool - Stool Aspirate Enteric Pathogens (PCR) - Final 04/16/23 14:39 Stool - Stool Aspirate C.difficile Toxin B Gene (PCR) - Final 04/16/23 14:39 Stool - Stool Aspirate Occult Blood (FIT) - Final Laboratory Results WBC 6.4 10^3/uL (4.5-13.0) 04/20/23 05:24 RBC 2.30 10^6/uL (4.1-5.3) L 04/20/23 05:24 Hgb 7.4 g/dL (11.7-16.6) L 04/20/23 05:24 Hct 23.3 % (42.0-52.0) L 04/20/23 05:24 MCV 101.3 fl (80-94) H 04/20/23 05:24 MCH 32.2 pg (28.0-34.0) 04/20/23 05:24 MCHC 31.8 g/dL (30.0-36.0) 04/20/23 05:24 RDW 15.9 % (12.1-15.1) H 04/20/23 05:24 Plt Count 196 10^3/cmm (130-400) D 04/20/23 05:24 MPV 8.9 fL (7.4-10.4) 04/20/23 05:24 Neut % (Auto) 52.3 % 04/20/23 05:24 Lymph % (Auto) 38.4 % 04/20/23 05:24 [place] % (Auto) 6.6 % 04/20/23 05:24 Eos % (Auto) 0.3 % 04/20/23 05:24 Baso % (Auto) 0.2 % 04/20/23 05:24 Neut # (Auto) 3.32 10^3/uL (1.8-8.0) 04/20/23 05:24 Lymph # (Auto) 2.4 10^3/uL (1.5-6.5) 04/20/23 05:24 [place] # (Auto) 0.4 10^3/uL (0.2-0.9) 04/20/23 05:24 Eos # (Auto) 0.0 10^3/uL (0.0-0.8) 04/20/23 05:24 Baso # (Auto) 0.0 10^3/uL (0.0-0.1) 04/20/23 05:24 Nucleated RBC % (auto) 0.6 % 04/20/23 05:24 Nucleated RBCs # 0.0 /100WBC 04/20/23 05:24 Sodium 137 mmol/L (136-145) 04/19/23 05:43 Potassium 3.4 mmol/L (3.5-5.1) L 04/19/23 05:43 Chloride 104 mmol/L (98-107) 04/19/23 05:43 Carbon Dioxide 26 mmol/L (22-29) 04/19/23 05:43 Anion Gap 10.4 (5-19) 04/19/23 05:43 BUN 4 mg/dL (6-20) L 04/19/23 05:43 Creatinine 0.5 mg/dL (0.7-1.2) L 04/19/23 05:43 GFR Calculation 212.0 mL/min (90-130) H 04/19/23 05:43 Glucose 94 mg/dL (65-115) 04/19/23 05:43 Estimat Average Glucose 97 04/16/23 05:07 Hemoglobin A1c 5.0 % (4.0-6.0) 04/16/23 05:07 Calculated Osmolality 281 mOsm/kg (285-295) L 04/19/23 05:43 Lactic Acid 2.1 mmol/L (0.5-2.2) 04/13/23 16:57 Lactic Acid (Sepsis) 2.4 mmol/L (0.5-2.2) H 04/13/23 19:35 Lactate 1.2 mmol/L (0.5-2.2) 04/14/23 08:25 Calcium 8.2 mg/dL (8.5-10.5) L 04/19/23 05:43 Phosphorus 2.8 mg/dL (2.5-4.5) 04/20/23 05:24 Magnesium 1.9 mg/dL (1.7-2.3) 04/20/23 05:24 Iron 178 ug/dL (59-158) H 04/15/23 07:55 TIBC 195 mcg/dl 04/15/23 07:55 % Saturation 91.2 % (20-50) H 04/15/23 07:55 Unsat Iron Binding < 17 ug/dL (112-347) L 04/15/23 07:55 Ferritin 278 ng/mL (30-400) 04/15/23 07:55 Total Bilirubin 0.7 mg/dL (0.15-1.2) 04/19/23 05:43 Direct Bilirubin 1.20 mg/dL (0.00-0.30) H 04/14/23 07:55 Indirect Bilirubin 1.20 04/14/23 07:55 AST 7 U/L (0-40) 04/19/23 05:43 ALT 15 U/L (0-41) 04/19/23 05:43 Alkaline Phosphatase 73 U/L (40-130) 04/19/23 05:43 Lactate Dehydrogenase 227 U/L (135-225) H 04/17/23 04:55 C-Reactive Protein 10.5 mg/L (0.0-4.9) H 04/15/23 07:00 Total Protein 4.7 g/dL (6.6-8.7) L 04/19/23 05:43 Albumin 2.7 g/dL (3.5-5.2) L 04/19/23 05:43 Globulin 2.0 g/dL (1.3-4.6) 04/19/23 05:43 Triglycerides 58 mg/dL (0-150) 04/18/23 06:10 Cholesterol 65 mg/dL (0-200) 04/18/23 06:10 LDL Cholesterol, Calc 20 mg/dL (50-129) L 04/18/23 06:10 Total VLDL Cholesterol 12 mg/dL (0-30) 04/18/23 06:10 HDL Cholesterol 33 mg/dL (60-100) L 04/18/23 06:10 Cholesterol/HDL Ratio 1.97 mg/dL (1.0-5.00) 04/18/23 06:10 Lipase 50 U/L (13-60) 04/13/23 16:57 Vitamin B12 150 pg/mL (232-1245) L 04/15/23 07:55 Folate 2.0 ng/mL (4.5-32.2) L 04/18/23 06:10 Procalcitonin 0.12 ng/mL (0-0.5) 04/17/23 04:55 TSH 1.50 uIU/mL (0.27-4.20) 04/13/23 16:57 Bronch Specimen Source Left lower lobe 04/19/23 08:56 Bronchial Fluid Color Colorless 04/19/23 08:56 Bronchial Fluid Appearance Clear (CLEAR) 04/19/23 08:56 Bronchial Fluid WBC 118 /uL 04/19/23 08:56 Bronchial Fluid RBC 400 10^3/uL 04/19/23 08:56 Bronch Cells Counted 200 04/19/23 08:56 Bronchial Neutrophils 64.00 % (0.9-2.3) H 04/19/23 08:56 Bronchial Lymphocytes 2.00 % (10.71-12.91) L 04/19/23 08:56 Bronchial Macrophages 34.00 % (83.6-86.8) L 04/19/23 08:56 Bronchial Diff Comment Yes 04/19/23 08:56 TB (QFT) Gold In Tube Negative (NEGATIVE) 04/16/23 13:16 TB Test (QFT) Nil 0.03 IU/mL 04/16/23 13:16 TB Test (QFT) Mitogen >10.00 IU/mL 04/16/23 13:16 TB Test Mitogen - Nil 0.01 IU/mL 04/16/23 13:16 TB Test TB -Nil 0.00 IU/mL 04/16/23 13:16 Blood Type O Positive 04/19/23 20:40 Rho(D) Type Positive 04/19/23 20:40 Antibody Screen Negative 04/19/23 20:40 Crossmatch See Detail 04/14/23 12:04 Vitals Last Vital Signs Temp 97.5 F L 04/20/23 07:00 Pulse 80 04/20/23 08:45 Resp 16 04/20/23 08:45 BP 97/64 04/20/23 07:00 Pulse Ox 97 04/20/23 08:45 O2 Del Method Room Air 04/20/23 08:45 Discharge Plan Discharge Patient Disposition: Home Condition: Stable Prescriptions: New magnesium oxide 400 mg (241.3 mg magnesium) Tablet 400 mg PO BID Qty: 60 0RF Phospha 250 Neutral 250 mg Tablet 250 mg PO BID Qty: 60 0RF Thera 400 mcg Tablet 1 tab PO DAILY Qty: 30 0RF linezolid 600 mg tablet 600 mg PO Q12H 10 Days Qty: 20 0RF Continued sertraline 100 mg tablet 150 mg PO DAILY hydroxyzine HCl 25 mg tablet 25 mg PO TID PRN (Reason: Itching) Qty: 30 1RF Miralax 17 gram Powder In Packet 17 g PO BID PRN (Reason: Constipation) dicyclomine 20 mg tablet 20 mg PO BID docusate sodium 100 mg capsule 200 mg PO BID PRN (Reason: Constipation) ondansetron 4 mg tablet,disintegrating 4 mg PO Q8H PRN (Reason: Nausea And Vomiting) levetiracetam 1,000 mg tablet 1,000 mg PO BID Discontinued propranolol 10 mg tablet 10 mg PO BID clonidine HCl 0.2 mg tablet 0.2 mg PO BEDTIME Discharge Orders: Discharge Order (Routine); Ordered 04/20/23 Ordered By: Andreas Kaur Referrals: Jorge Negrete DO [Physician] - 7-10 days Datar,Zander Dobbins MD [Physician] - 06/10/23 10:45 am Roxann Martinez MD [Primary Care Provider] - 04/25/23 11:15 am Discharge Diet: Regular Discharge Activity: Resume usual activity and Increase activity as tolerated Patient Instructions: Linezolid (By mouth) (Zyvox), Magnesium Oxide (By mouth), Sodium Phosphate Dibasic/Sodium Phosphate Monobasic (By mouth)..., Aspiration Pneumonia (DC), Colitis (ED), Vitamin B12 Deficiency (ED), Opioid Safety Activity Restrictions/Additional Instructions: Please follow-up with a primary care provider on the set appointment. You should have a repeat CBC and CMP along with magnesium and phosphorus level checked on your appointment. Please follow-up with pulmonary on a set appointment on June 10. You will be on antibiotics which will be linezolid for next 14 days. Please make sure that during your meals you eat small multiple slow bites. Please make sure you are sitting up in bed for at least standing for at least 30 minutes after your meals to avoid aspiration. Whenever you have vomiting again make sure that you do not to 1 side rather than laying straight in bed. Discharge Attestations Time Spent in Discharge Care*: greater than 30 min Specific Discharge Activities: educating and/or supporting family/caregiver, discussing with pcp/other providers, discussing with watch case polisher/social workers/dc planners, documenting/other paperwork and evaluating patient/reviewing data Status at Discharge: Cognitive status at discharge: severely impaired cognition , Behavioral status at discharge: cooperative , Functional status at discharge: independent ambulation , Overall status at discharge: patient is back to baseline Quality Metrics Clinical Quality Measures [ No reported AMI, CVA or VTE this stay] Coding Level of Care Code 65616 Total time (in minutes) for Discharge: 60 Diagnoses Cavitary lesion of lung J98.4 Aspiration pneumonitis J69.0 Intractable nausea and vomiting R11.2 Colitis K52.9 Refeeding syndrome E87.8 Loss of appetite for more than 2 weeks R63.0 Unintentional weight loss of 5% body weight or less within 1 month R63.4 Sleep difficulties G47.9 Generalized epilepsy G40.309 Autism F84.0 Nutritional counseling Z71.3 Hypophosphatemia E83.39 Vitamin B12 deficiency E53.8 Folic acid deficiency E53.8
[2023-04-20 11:21] VITALS: BP 110/74; PULSE 88; RESP 15; TEMP 36.4; O2SAT 98
[2023-04-20 13:10] VITALS: BP 110/74; PULSE 88; RESP 15; TEMP 36.4; O2SAT 98
[2023-04-24 21:50] LABS: Aspergillus AG,EIA NOT DETECTED; Aspergillus AG,EIA, Index <0.50
== END 2023-04-20 13:21 | disposition home or self-care (01) | DRG 391 ==
LOC: ER 19:32 → MEDSURG 21:10
PROVIDERS: Emergency Medicine; Internal Medicine Pulmonary Disease; Admitting Provider Internal Medicine; Emergency Provider Emergency Medicine; PCP Pediatrics Adolescent Medicine; Visit Provider Student in an Organized Health Care Education/Training Program
PROC: 0BJ08ZZ Inspection of Tracheobronchial Tree, Via Natural or Artificial Opening Endoscopic (ICD-10-PCS; CPT 31622; principal; 2023-04-19 08:20)
DX: K52.9 Noninfective gastroenteritis and colitis, unspecified (principal); J69.0 Pneumonitis due to inhalation of food and vomit; F84.0 Autistic disorder; E46 Unspecified protein-calorie malnutrition; J98.4 Other disorders of lung; B95.62 Methicillin resistant Staphylococcus aureus infection as the cause of diseases classified elsewhere; Z68.26 Body mass index [BMI] 26.0-26.9, adult; D51.9 Vitamin B12 deficiency anemia, unspecified; D52.9 Folate deficiency anemia, unspecified; F41.9 Anxiety disorder, unspecified; G40.409 Other generalized epilepsy and epileptic syndromes, not intractable, without status epilepticus; N43.3 Hydrocele, unspecified; Z87.01 Personal history of pneumonia (recurrent); E86.0 Dehydration; E87.5 Hyperkalemia
CPT/HCPCS: 31624; 31645; 36415; 36430; 71045; 71250; 74177; 76705; 80048; 80053; 80061; 80503; 82247; 82248; 82274; 82607; 82728; 82746; 83036; 83540; 83550; 83605; 83615; 83690; 83735; 84100; 84145; 84443; 85014; 85018; 85025; 86140; 86480; 86850; 86900; 86920; 87015; 87040; 87070; 87077; 87102; 87116; 87186; 87205; 87206; 87305; 87493; 87506; 87801; 89050; 92523; 92526; 92610; 94669; 94799; 96365; 96367; 96372; 96376; 99285; C9113; G0378; J0330; J0744; J1100; J1644; J1953; J2060; J2405; J2543; J2704; J3010; J3370; J3411; J3420; J3475; J3480; J3490; J7030; J7042; J7120; P9016; Q9967

== ENCOUNTER 2023-11-05 23:08 | Inpatient (IN) | payer MEDICARE, MEDICAID, SELFPAY ==
[2023-11-05 23:13] VITALS: BP 150/94; PULSE 107; RESP 18; TEMP 36.9; O2SAT 94; BMI 32.1
--- NOTE | 2023-11-05 23:31 | XRR_ITS ---
PROCEDURE INFORMATION: Exam: XR Chest Exam date and time: 11/05/2023 11:37 PM Age: 23 years old Clinical indication: Patient HX: EMS arrival for seizure activity. History of siezure disorder. Patient autistic and non verbal. ; Additional info: Melecio TECHNIQUE: Imaging protocol: Radiologic exam of the chest. Views: 1 view. COMPARISON: CT chest con [id number] 04/15/2023 11:06 AM FINDINGS: Lungs: Lungs are hypoinflated, somewhat limiting evaluation. Left retrocardiac and bibasilar opacities. Pleural spaces: Possible small left pleural effusion. No pneumothorax. Heart/Mediastinum: Unremarkable. No cardiomegaly. Esophagus appears air-filled/distended. Bones/joints: No acute abnormality. Gastrointestinal tract: Gaseous distention of the stomach noted. XR/XR chest 1V portable [id number] IMPRESSION: Left retrocardiac and bibasilar opacities, may represent atelectasis and/or consolidation..
--- NOTE | 2023-11-05 23:34 | ECG_ITS ---
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 Measurements Intervals [place] Rate: 102 P: 55 VT: 170 QRS: 77 QRSD: 100 T: 34 QT: 299 QTc: 390 Interpretive Statements SINUS TACHYCARDIA Compared to ECG 06/10/2022 23:08:59 No significant changes Electronically Signed On 11-07-2023 7:56:03 FORM DRAFTER by Tom Phan M.D. [id number]
[2023-11-06] VITALS (165 sets, daily range): BP systolic 100–151; BP diastolic 50–85; PULSE 87–135; RESP 10–34; TEMP 36.5–37.3; O2SAT 82–100
[2023-11-06] MEDS: levETIRAcetam 1,000 MG/100 ML PREMIX 400 MG IV ×3 (00:08→17:02)
[2023-11-06] MEDS: LORazepam 2 mg/mL INJ 10 mL MDV IVP (00:09)
[2023-11-06 00:46] LABS: Basophils # 0.2 10^3/uL (0.0-0.1); Basophils % 0.6 %; Eosinophils # 0.5 10^3/uL (0.0-0.8); Eosinophils % 2.1 %; Hematocrit 48.1 % (37-53); Lymphocytes # 7.4 10^3/uL (0.8-4.8); Lymphocytes % 29.2 %; Mean Corpuscular HGB Conc 31.2 g/dL (30-55); Mean Corpuscular Hemoglobin 29.8 pg (27-33); Mean Corpuscular Volume 95.4 fl (82-101); Mean Platelet Volume 9.2 fL (7.4-10.4); Monocytes # 1.9 10^3/uL (0.2-0.9); Monocytes % 7.5 %; Neutrophils # 14.67 10^3/uL (1.8-7.7); Neutrophils % 57.8 %; Nucleated Red Blood Cells % 0.1 %; Platelet Count 636 10^3/cmm (157-399); Red Blood Count 5.04 10^6/uL (3.85-5.65); Red Cell Distribution Width 12.9 % (12.1-15.1); White Blood Count 25.35 10^3/uL (3.29-11.43)
[2023-11-06 00:54] LABS: Alanine Aminotransferase 16 U/L (0-41); Albumin Level 4.8 g/dL (3.5-5.2); Alkaline Phosphatase 89 U/L (40-130); Anion Gap 16.1 (5-19); Aspartate Amino Transferase 22 U/L (0-40); Blood Urea Nitrogen 13 mg/dL (6-20); Calcium 10.2 mg/dL (8.5-10.5); Carbon Dioxide 31 mmol/L (22-29); Chloride 101 mmol/L (98-107); Creatine Phosphokinase 103 U/L (39-308); Globulin 3.5 g/dL (1.3-4.6); Glomerular Filtration Rate 94.3 mL/min (90-130); Glucose 142 mg/dL (65-115); Magnesium 2.5 mg/dL (1.7-2.3); Osmolality Calculated 299 mOsm/kg (285-295); Potassium 5.1 mmol/L (3.5-5.1); Sodium 143 mmol/L (136-145); Total Bilirubin 0.2 mg/dL (0.15-1.2); Total Protein 8.3 g/dL (6.6-8.7)
--- NOTE | 2023-11-06 00:55 | CTR_ITS ---
PROCEDURE INFORMATION: Exam: CT Head Without Contrast Exam date and time: 11/06/2023 1:06 AM Age: 23 years old Clinical indication: Patient HX: EMS arrival for seizure. History of chronic seizure disorder. TECHNIQUE: Imaging protocol: Computed tomography of the head without contrast. Radiation optimization: All CT scans at this facility use at least one of these dose optimization techniques: automated exposure control; mA and/or kV adjustment per patient size (includes targeted exams where dose is matched to clinical indication); or iterative reconstruction. COMPARISON: CT head wo con* [id number] 06/10/2022 11:43 PM RADIATION DOSE METRICS: Total DLP (mGy-cm): 1083.68 FINDINGS: Brain: No acute intracranial hemorrhage. No territorial region of campbell-white dedifferentiation. No extra-axial collection. No mass effect or midline shift. Cerebral ventricles: No acute hyrocephalus. Paranasal sinuses: Visualized sinuses are well-aerated. No fluid levels. Mastoid air cells: Visualized mastoid air cells are well aerated. Orbital cavities: No acute abnormality. Bones/joints: No acute calvarial fracture. Soft tissues: No acute abnormality. CT/CT head wo con* [id number] IMPRESSION: No acute findings.
[2023-11-06 01:44] LABS: Arterial Blood Gas Hematocrit 45.6 % (42-52); Base Excess ABG -0.2 mmol/L (-2.0-2.0); Blood Gas Allen Test Pos; Blood Gas Sample Site Radial, right; Blood Gas Sample Type Arterial; HCO3 ABG 30.8 mmol/L (22-26); Oxygen Device NC; PO2 ABG 99.7 mmHg (80.0-100.0)
[2023-11-06 01:45] LABS: ABG PCO2 81.7 mmHg (35-45); ABG PH Result 7.18 (7.35-7.45)
[2023-11-06] MEDS: ondansetron 2 mg/ML SDV 2 mL 4 MG IVP ×2 (02:21→17:51)
--- NOTE | 2023-11-06 03:02 | ED_ITS ---
HPI - Seizure 2 General: Chief Complaint: Seizure Stated Complaint: seizures Time Seen by Provider: 11/05/23 23:17 History of Present Illness: HPI Narrative: 23-year-old male with a known history of seizure disorder and of autism. He presents after a seizure at home. It lasted several minutes. This was a normal seizure according to his mother. She states that the patient became combative prior to seizure which is an indicator that he is about to seize. He convulsed at home. She called an ambulance, as he has a history of aspiration with seizure. He presents somewhat obtunded. He does not answer questions, as he is nonverbal at baseline. She states that he does walk on his own. He is incontinent at baseline as well. Seizure History: Yes Place: Home Review of Systems 2 General: Reports: ROS unobtainable due to medical condition PFSH ED 2 PFSH: Medical History Folic acid deficiency Vitamin B12 deficiency Hydrocele Noted May 2019. Decreased in size by report July 2019 and continued report May 2022. Pneumonia Generalized seizure Incontinence of feces Epilepsy Managed by Dr. Casanova Autism disorder Allergic rhinitis Anxiety Surgical History Hx of myringotomy History of tonsillectomy and adenoidectomy Family History Other CAD (coronary artery disease) Cancer Lung disease Migraines, neuralgic Social History Smoking and tobacco/nicotine status: never used tobacco/nicotine Alcohol intake: never Substance/Drug Use: never Adopted: No Caregiver/support person: Yes Lives independently: No Physical Exam 2 Const: GENERAL APPEARANCE: lethargic, ill appearing and frail appearing O RIENTATION/CONSCIOUSNESS: Yes lethargic HENMT: COMMON NORMALS: normocephalic, atraumatic and Normal external nose present HEAD & SCALP: normocephalic and atraumatic FACE & SINUS: normal facial exam NOSE: Normal external nose present and Normal nares present Eye: PUPIL: Yes Dilated pupils OTHER: Fixed gaze present Neck/C-Spine: GENERAL: Yes trachea midline Chest: CHEST: Yes Symmetrical chest wall rise Resp: EFFORT & INSPECTION: No respiratory distress AUSCULTATION: diminished lung sounds Cardio: COMMON NORMALS: regular rhythm RATE: tachycardic RHYTHM: regular rhythm GI: COMMON NORMALS: Normal to inspection, nondistended, normoactive bowel sounds present Extremity: COMMON NORMALS: no pedal edema Neuro: VANESSA COMA SCALE: document GCS findings [place] coma scale eye opening: Spontaneous [place] coma scale verbal response: Sounds Vanessa coma scale motor response: Normal flexion Vanessa coma scale total score: 10 S ENSORIUM/ORIENTATION: Yes lethargic Course 2 Vital Signs: Vital signs: Vital Signs Temperature 98.4 F 11/05/23 23:13 Pulse Rate 88 11/06/23 01:50 Respiratory Rate 18 11/05/23 23:13 Blood Pressure 150/94 11/05/23 23:13 Pulse Oximetry 98 11/06/23 01:50 Oxygen Delivery Me thod Non-Rebreather 11/05/23 23:13 Oxygen Flow Rate 12 11/05/23 23:13 Fraction of Inspir ed Oxygen 30 11/06/23 01:50 MDM - Seizure MDM Narrative Medical decision making narrative: This patient was likely still seizing on arrival. He was stiff, eyes were fixed, and he was not responding well. He was given 2 mg of Ativan IV and loaded with 1 g of Keppra, as he missed his normal dose tonight. This seemed to help, and that the patient went to sleep, was not stiff, and eyes were not fixed after that. However, he was requiring oxygen, and breathing was a bit shallow. Blood gas was performed, and shows a pH of 7.2 with a high pCO2. He was placed on BiPAP, but briefly after being placed on the machine the patient vomited. Suction was performed. He is placed back on nasal cannula, as he was becoming much more responsive at that point. Repeating a blood gas as of now to see if he is improving on his own in an attempt to avoid intubation in this patient who seems to be recovering. His white blood cell count is elevated. His chest x-ray shows bibasilar atelectasis.His CK level is only 100. His creatinine is 1. There is no left shift and his differential on CBC. He is afebrile. Due to his prolonged recovery, oxygen dependency, etc., he will be admitted, although he does seem to be recovering postseizure. The patient continued to recover in the emergency room. He is much more awake and alert now. He gave his mother a high-five a bit ago. Repeating a blood gas in the unit to ensure his CO2 continues to fall. If not, intubation is still the next step. Will be observed in the ICU. Lab Data 11/05/23 00:26 11/05/23 00:26 Labs: Radiology Impressions Chest X-Ray 11/05/23 23:31 IMPRESSION: Left retrocardiac and bibasilar opacities, may represent atelectasis and/or consolidation.. Head CT 11/06/23 00:55 IMPRESSION: No acute findings. Laboratory Results WBC 25.35 10^3/uL (3.29-11.43) H 11/05/23 00:26 RBC 5.04 10^6/uL (3.85-5.65) 11/05/23 00:26 Hgb 15.00 g/dL (11.27-16.99) 11/05/23 00:26 Hct 48.1 % (37-53) 11/05/23 00:26 MCV 95.4 fl (82-101) 11/05/23 00:26 MCH 29.8 pg (27-33) 11/05/23 00:26 MCHC 31.2 g/dL (30-55) 11/05/23 00:26 RDW 12.9 % (12.1-15.1) 11/05/23 00:26 Plt Count 636 10^3/cmm (157-399) H 11/05/23 00:26 MPV 9.2 fL (7.4-10.4) 11/05/23 00:26 Neut % (Auto) 57.8 % 11/05/23 00:26 Lymph % (Auto) 29.2 % 11/05/23 00:26 Lares % (Auto) 7.5 % 11/05/23 00:26 Eos % (Auto) 2.1 % 11/05/23 00:26 Baso % (Auto) 0.6 % 11/05/23 00:26 Neut # (Auto) 14.67 10^3/uL (1.8-7.7) H 11/05/23 00:26 Lymph # (Auto) 7.4 10^3/uL (0.8-4.8) H 11/05/23 00:26 Lares # (Auto) 1.9 10^3/uL (0.2-0.9) H 11/05/23 00:26 Eos # (Auto) 0.5 10^3/uL (0.0-0.8) 11/05/23 00:26 Baso # (Auto) 0.2 10^3/uL (0.0-0.1) H 11/05/23 00:26 Nucleated RBC % (auto) 0.1 % 11/05/23 00:26 Nucleated RBCs # 0.0 /100WBC 11/05/23 00:26 Specimen Type Arterial 11/06/23 03:13 Sample Site Radial, left 11/06/23 03:13 ABG pH 7.25 (7.35-7.45) L 11/06/23 03:13 ABG pCO2 72.8 mmHg (35-45) H* 11/06/23 03:13 ABG pO2 140.0 mmHg (80.0-100.0) H 11/06/23 03:13 ABG HCO3 32.0 mmol/L (22-26) H 11/06/23 03:13 ABG Base Excess 2.4 mmol/L (-2.0-2.0) H 11/06/23 03:13 Forrest Test Pos 11/06/23 03:13 Hematocrit 45.1 % (42-52) 11/06/23 03:13 O2 Delivery Device Nc 11/06/23 03:13 O2 Liters/Min 5.0 % 11/06/23 03:13 Gas Or Water Meter Installer ID [email or web address] 11/06/23 03:13 Sodium 143 mmol/L (136-145) 11/05/23 00:26 Potassium 5.1 mmol/L (3.5-5.1) 11/05/23 00:26 Chloride 101 mmol/L (98-107) 11/05/23 00:26 Carbon Dioxide 31 mmol/L (22-29) H 11/05/23 00:26 Anion Gap 16.1 (5-19) 11/05/23 00:26 BUN 13 mg/dL (6-20) 11/05/23 00:26 Creatinine 1.0 mg/dL (0.7-1.2) 11/05/23 00:26 GFR Calculation 94.3 mL/min (90-130) 11/05/23 00:26 Glucose 142 mg/dL (65-115) H 11/05/23 00:26 Calculated Osmolality 299 mOsm/kg (285-295) H 11/05/23 00:26 Calcium 10.2 mg/dL (8.5-10.5) 11/05/23 00:26 Phosphorus 6.0 mg/dL (2.5-4.5) H 11/05/23 00:26 Magnesium 2.5 mg/dL (1.7-2.3) H 11/05/23 00:26 Total Bilirubin 0.2 mg/dL (0.15-1.2) 11/05/23 00:26 AST 22 U/L (0-40) 11/05/23 00:26 ALT 16 U/L (0-41) 11/05/23 00:26 Alkaline Phosphatase 89 U/L (40-130) 11/05/23 00:26 Creatine Kinase 103 U/L (39-308) 11/05/23 00:26 Total Protein 8.3 g/dL (6.6-8.7) 11/05/23 00:26 Albumin 4.8 g/dL (3.5-5.2) 11/05/23 00:26 Globulin 3.5 g/dL (1.3-4.6) 11/05/23 00:26 All radiology interpretation(s) finalized by discharge Critical Care Time 2 Critical Care Time: Critical Care Time: Yes Total Critical Care Time: 40 Attestation: This case had a high probability of a clinically significant, sudden, or life threatening deterioration of this patient's condition which required my full and direct attention, intervention and personal management. Time is independent of any procedures performed Discharge Plan Discharge Patient Disposition: Admitted As Inpatient Admit Provider: Flor King Clinical Impression: Generalized epilepsy, Generalized convulsive seizure, Acute hypercapnic respiratory failure Condition: Fair Coding Level of Care Code ED Block Stacker for Irene Galicia
[2023-11-06 03:24] LABS: ABG PCO2 72.8 mmHg (35-45); ABG PH Result 7.25 (7.35-7.45); Arterial Blood Gas Hematocrit 45.1 % (42-52); Base Excess ABG 2.4 mmol/L (-2.0-2.0); Blood Gas Allen Test Pos; Blood Gas Sample Site Radial, left; Blood Gas Sample Type Arterial; Oxygen Device NC
--- NOTE | 2023-11-06 04:56 | P.HP_ITS ---
Providers/Chief Complaint 2 Admitting Physician: Flor King MD Primary Care Provider: Roxann Martinez MD Chief Complaint: seizures History of Present Illness Doug Pantoja is a 23 year old male with autism, severe developmental delay, nonverbal at baseline brought to the emergency room today with witnessed episode of seizure at home at around 10:30 PM. Mother witnessed patient to have had a seizure, followed by lethargy and decreased responsiveness which persisted upon ER arrival. Typically patient is able to perform his ADLs such as going to the bathroom, he walks, changes his own prolapse p, self feeds etc. He is able to play some video games. Today patient has been lethargic post the episode. He is moving around his extremities laying in the bed, however is difficult to redirect and awaken. Evaluation in the emergency room showed evidence of hypoxia and hypercapnia for which she was placed on BiPAP but thereafter patient developed an episode of vomiting therefore BiPAP needed to be taken off. CO2 did improve from 82 down to 71 with transient BiPAP. Repeat ABG is currently pending for evaluation. There has been no recent doses changed On his Keppra. Currently takes 1000 mg twice daily. He was yet to receive this evening's dose. No complaints of fever chills nausea vomiting diarrhea or other complaints prior to this episode of seizure. Review of Systems 2 General: Reports: ROS unobtainable due to medical condition Medications/Allergies Home Medications Medication Instructions Recorded Confirmed Last Taken Type sertraline 100 mg tablet 150 mg PO DAILY 05/13/22 07/29/23 Unknown History hydroxyzine HCl 25 mg tablet 25 mg PO TID PRN Itching #30 tabs 01/06/23 07/29/23 Unknown Rx dicyclomine 20 mg tablet 20 mg PO BID 04/14/23 07/29/23 Unknown History docusate sodium 100 mg capsule 200 mg PO BID PRN Constipation 04/14/23 07/29/23 Unknown History levetiracetam 1,000 mg tablet 1,000 mg PO BID 04/14/23 07/29/23 Unknown History ondansetron 4 mg disintegrating 4 mg PO Q8H PRN Nausea And Vomiting 04/14/23 07/29/23 Unknown History tablet polyethylene glycol 3350 17 gram 17 g PO BID PRN Constipation 04/14/23 07/29/23 Unknown History oral powder packet (Miralax) magnesium oxide 400 mg (241.3 mg 400 mg PO BID #60 tabs 04/20/23 07/29/23 Unknown Rx magnesium) tablet multivitamin with folic acid 400 1 tab PO DAILY #30 tabs 04/20/23 07/29/23 Unknown Rx mcg tablet (Thera) sodium di- and 250 mg PO BID #60 tabs 04/20/23 07/29/23 Unknown Rx monophosphate-potassium phos monobasic 250 mg tablet (Phospha Neutral) cefdinir 300 mg capsule 300 mg PO BID 10 days #20 caps 07/29/23 07/29/23 Unknown Rx clonidine HCl 0.3 mg tablet See Rx Instructions .Route 09/20/23 Unknown Rx .COMPLEX #90 tabs Allergies Allergy/AdvReac Type Severity Reaction Status Date / Time Penicillins Allergy ADR-Nausea Verified 11/05/23 23:19 Sulfa (Sulfonamide Allergy Unknown Verified 11/05/23 23:19 Antibiotics) PFSH Acute 2 PFSH: Medical History Folic acid deficiency Vitamin B12 deficiency Hydrocele Noted May 2019. Decreased in size by report July 2019 and continued report May 2022. Pneumonia Generalized seizure Incontinence of feces Epilepsy Managed by Dr. Casanova Autism disorder Allergic rhinitis Anxiety Surgical History Hx of myringotomy History of tonsillectomy and adenoidectomy Family History Other CAD (coronary artery disease) Cancer Lung disease Migraines, neuralgic Social History Smoking and tobacco/nicotine status: never used tobacco/nicotine Alcohol intake: never Substance/Drug Use: never Adopted: No Caregiver/support person: Yes Lives independently: No Vitals/I&O/Wt Last Vital Signs Temp 98.4 F 11/05/23 23:13 Pulse 88 11/06/23 01:50 Resp 18 11/05/23 23:13 BP 150/94 11/05/23 23:13 Pulse Ox 98 11/06/23 01:50 O2 Del Method Non-Rebreather 11/05/23 23:13 O2 Flow Rate 12 11/05/23 23:13 FiO2 30 11/06/23 01:50 Weight last 48 hrs Weight 113.398 kg Physical Exam 2 Narrative: General: No acute distress, drowsy , AO x1 HEENT: PERRLA, pupils bilaterally equal and reactive, pallors not present Chest: Normal vesicular breath sounds, no added sounds, equal good air entry bilaterally CVS: S1-S2 regular, no murmurs, no tachycardia, no gallops, no rubs Abdomen: Soft, nontender, no organomegaly, bowel sounds present Neuro: lethargic, moves all extremities in bed, no respiratory distress, does not follow commans or attempt to communicate currently Data 11/05/23 00:26 11/05/23 00:26 Other Labs: Radiology Impressions Chest X-Ray 11/05/23 23:31 IMPRESSION: Left retrocardiac and bibasilar opacities, may represent atelectasis and/or consolidation.. Head CT 11/06/23 00:55 IMPRESSION: No acute findings. Laboratory Results WBC 25.35 10^3/uL (3.29-11.43) H 11/05/23 00:26 RBC 5.04 10^6/uL (3.85-5.65) 11/05/23 00:26 Hgb 15.00 g/dL (11.27-16.99) 11/05/23 00:26 Hct 48.1 % (37-53) 11/05/23 00:26 MCV 95.4 fl (82-101) 11/05/23 00:26 MCH 29.8 pg (27-33) 11/05/23 00:26 MCHC 31.2 g/dL (30-55) 11/05/23 00:26 RDW 12.9 % (12.1-15.1) 11/05/23 00:26 Plt Count 636 10^3/cmm (157-399) H 11/05/23 00:26 MPV 9.2 fL (7.4-10.4) 11/05/23 00:26 Neut % (Auto) 57.8 % 11/05/23 00:26 Lymph % (Auto) 29.2 % 11/05/23 00:26 [place] % (Auto) 7.5 % 11/05/23 00:26 Eos % (Auto) 2.1 % 11/05/23 00:26 Baso % (Auto) 0.6 % 11/05/23 00:26 Neut # (Auto) 14.67 10^3/uL (1.8-7.7) H 11/05/23 00:26 Lymph # (Auto) 7.4 10^3/uL (0.8-4.8) H 11/05/23 00:26 [place] # (Auto) 1.9 10^3/uL (0.2-0.9) H 11/05/23 00:26 Eos # (Auto) 0.5 10^3/uL (0.0-0.8) 11/05/23 00:26 Baso # (Auto) 0.2 10^3/uL (0.0-0.1) H 11/05/23 00:26 Nucleated RBC % (auto) 0.1 % 11/05/23 00:26 Nucleated RBCs # 0.0 /100WBC 11/05/23 00:26 Specimen Type Arterial 11/06/23 03:13 Sample Site Radial, left 11/06/23 03:13 ABG pH 7.25 (7.35-7.45) L 11/06/23 03:13 ABG pCO2 72.8 mmHg (35-45) H* 11/06/23 03:13 ABG pO2 140.0 mmHg (80.0-100.0) H 11/06/23 03:13 ABG HCO3 32.0 mmol/L (22-26) H 11/06/23 03:13 ABG Base Excess 2.4 mmol/L (-2.0-2.0) H 11/06/23 03:13 Forrest Test Pos 11/06/23 03:13 Hematocrit 45.1 % (42-52) 11/06/23 03:13 O2 Delivery Device Nc 11/06/23 03:13 O2 Liters/Min 5.0 % 11/06/23 03:13 [place]ognos Report Developer ID [email or web address] 11/06/23 03:13 Sodium 143 mmol/L (136-145) 11/05/23 00:26 Potassium 5.1 mmol/L (3.5-5.1) 11/05/23 00:26 Chloride 101 mmol/L (98-107) 11/05/23 00:26 Carbon Dioxide 31 mmol/L (22-29) H 11/05/23 00:26 Anion Gap 16.1 (5-19) 11/05/23 00:26 BUN 13 mg/dL (6-20) 11/05/23 00:26 Creatinine 1.0 mg/dL (0.7-1.2) 11/05/23 00:26 GFR Calculation 94.3 mL/min (90-130) 11/05/23 00:26 Glucose 142 mg/dL (65-115) H 11/05/23 00:26 Calculated Osmolality 299 mOsm/kg (285-295) H 11/05/23 00:26 Calcium 10.2 mg/dL (8.5-10.5) 11/05/23 00:26 Phosphorus 6.0 mg/dL (2.5-4.5) H 11/05/23 00:26 Magnesium 2.5 mg/dL (1.7-2.3) H 11/05/23 00:26 Total Bilirubin 0.2 mg/dL (0.15-1.2) 11/05/23 00:26 AST 22 U/L (0-40) 11/05/23 00:26 ALT 16 U/L (0-41) 11/05/23 00:26 Alkaline Phosphatase 89 U/L (40-130) 11/05/23 00:26 Creatine Kinase 103 U/L (39-308) 11/05/23 00:26 Total Protein 8.3 g/dL (6.6-8.7) 11/05/23 00:26 Albumin 4.8 g/dL (3.5-5.2) 11/05/23 00:26 Globulin 3.5 g/dL (1.3-4.6) 11/05/23 00:26 ABG Interpretation 1: 11/06/23 11/06/23 01:33 03:13 ABG pH 7.18 L* 7.25 L ABG pCO2 81.7 H* 72.8 H* ABG pO2 99.7 140.0 H ABG HCO3 30.8 H 32.0 H ABG Base Excess -0.2 2.4 H A&P Assessment and plan (1) Generalized convulsive seizure: Patient brought to the emergency room today due to witnessed seizure episode. He was yet to receive his evening dose of Keppra He has received 1 g loading dose in the emergency room. Will continue with home doses of 1 g IV every 12 hours until he is safe to resume p.o. intake. Currently appears to be in a postictal state, he is drowsy, not following commands. Check Keppra level. Electrolytes within normal range (2) Autism: Nonverbal at baseline but able to carry on his ADLs usually. (3) Aspiration pneumonitis: Chest x-ray showing bilateral infiltrates. May be related to aspiration episode as witnessed in the emergency room. May have had additional episode at home. Start empiric treatment with ceftriaxone and metronidazole and monitor for response. Currently fever free, however has leukocytosis with white blood cell count of 25,000. Mother denies any complains of fever cough or sputum production prior to the events of today. (4) Acute hypercapnic respiratory failure: Likely related to poor GCS from seizure and aspiration pneumonia Management as above. Continue antibiotics Unable to tolerate BiPAP due to vomiting. CO2 improved with transient use of BiPAP. Patient is starting to be more awake, less lethargic at the time of this assessment. Will check repeat blood gas now. If CO2 fails to improve with improvement in mentation, may need to be intubated. Mother is agreeable for the same. Plan DVT prophylaxis: Lovenox Full code Attestations 2 Medical Necessity Statement*: Greater than 2 midnight stay is anticipated Coding Level of Care Code Acute Code for Chg Fwd Diagnoses Generalized convulsive seizure R56.9 Autism F84.0 Aspiration pneumonitis J69.0 Acute hypercapnic respiratory failure J96.02
[2023-11-06 05:12] LABS: ABG PH Result 7.32 (7.35-7.45); Arterial Blood Gas Hematocrit 43.5 % (42-52); Base Excess ABG 3.6 mmol/L (-2.0-2.0); Blood Gas Allen Test Pos; Blood Gas Sample Site Radial, left; Blood Gas Sample Type Arterial; HCO3 ABG 31.5 mmol/L (22-26); Oxygen Device NC; PO2 FiO2 Ratio Arterial Blood 0
[2023-11-06 05:14] LABS: ABG PCO2 61.2 mmHg (35-45)
[2023-11-06] MEDS: enoxaparin 40 mg/0.4 mL Syringe SUBCUT (05:31)
[2023-11-06] MEDS: metroNIDAZOLE IV 500 MG/100 ML PREMIX 100 MG IV ×3 (05:31→20:43)
[2023-11-06] MEDS: cefTRIAXone 1,000 MG in sodium chloride 0.9% (plus) 50 ML 100 MG IV (05:31)
[2023-11-06] MEDS: sodium chloride 0.9% 1,000 ML 75 ML IV ×2 (05:37→20:39)
[2023-11-06] MEDS: pantoprazole DR 40 mg Tablet PO (08:24)
--- NOTE | 2023-11-06 09:45 | XRR_ITS ---
PROCEDURE INFORMATION: Exam: XR Abdomen Exam date and time: 11/06/2023 2:05 PM Age: 23 years old Clinical indication: Other: Guarding gall bladder palpation TECHNIQUE: Imaging protocol: Radiologic exam of the abdomen. Views: Frontal supine view of the abdomen. 1 View. COMPARISON: CT chest abdpel [id number] 11/06/2023 2:01 PM FINDINGS: Gastrointestinal tract: Nonobstructive bowel gas pattern. Bones/joints: No acute findings. XR/XR KUB portable [id number] IMPRESSION: No acute findings.
--- NOTE | 2023-11-06 09:50 | USR_ITS ---
PROCEDURE INFORMATION: Exam: US Abdomen, Limited; Right Upper Quadrant Exam date and time: 11/06/2023 10:21 AM Age: 23 years old Clinical indication: Abdominal pain; Generalized; Additional info: Ruq tenderness TECHNIQUE: Imaging protocol: Real time ultrasound of the abdomen with image documentation. Limited exam focused on the right upper quadrant. COMPARISON: US gall bladder [id number] 04/16/2023 12:05 PM FINDINGS: Liver: Increased echogenicity. Gallbladder: No shadowing stones or evidence of acute cholecystitis. Biliary ducts: No dilation. Pancreas: Obscured by overlying bowel gas. Right kidney: No hydronephrosis. US/US gall bladder [id number] IMPRESSION: Hepatic steatosis.
[2023-11-06 10:25] LABS: Basophils % 0.3 %; Eosinophils % 0.1 %; Hematocrit 43.3 % (37-53); Lymphocytes # 1.7 10^3/uL (0.8-4.8); Lymphocytes % 11.4 %; Mean Corpuscular HGB Conc 31.9 g/dL (30-55); Mean Corpuscular Hemoglobin 29.4 pg (27-33); Mean Corpuscular Volume 92.3 fl (82-101); Mean Platelet Volume 9.1 fL (7.4-10.4); Monocytes # 0.9 10^3/uL (0.2-0.9); Monocytes % 6.1 %; Neutrophils # 12.22 10^3/uL (1.8-7.7); Neutrophils % 81.3 %; Nucleated Red Blood Cells % 0 %; Platelet Count 383 10^3/cmm (157-399); Red Blood Count 4.69 10^6/uL (3.85-5.65); Red Cell Distribution Width 12.7 % (12.1-15.1); White Blood Count 15.03 10^3/uL (3.29-11.43)
[2023-11-06 10:27] LABS: Erythrocyte Sedimentation Rate 17 mm/hr (0-10)
[2023-11-06 10:43] LABS: Ammonia 66 umol/L (16-60); Lactic Sepsis W/Reflex 1.5 mmol/L (0.5-2.2)
[2023-11-06 10:54] LABS: Procalcitonin 0.28 ng/mL (0-0.5)
[2023-11-06 11:05] LABS: Alanine Aminotransferase 17 U/L (0-41); Albumin Level 4.3 g/dL (3.5-5.2); Alkaline Phosphatase 75 U/L (40-130); Anion Gap 16.2 (5-19); Aspartate Amino Transferase 21 U/L (0-40); Blood Urea Nitrogen 12 mg/dL (6-20); C Reactive Protein 13.7 mg/L (0.0-4.9); Calcium 9.5 mg/dL (8.5-10.5); Carbon Dioxide 25 mmol/L (22-29); Chloride 101 mmol/L (98-107); Globulin 3.5 g/dL (1.3-4.6); Glucose 112 mg/dL (65-115); Magnesium 2.2 mg/dL (1.7-2.3); Osmolality Calculated 287 mOsm/kg (285-295); Phosphorus 2.7 mg/dL (2.5-4.5); Potassium 4.2 mmol/L (3.5-5.1); Sodium 138 mmol/L (136-145); Total Bilirubin 0.3 mg/dL (0.15-1.2); Total Protein 7.8 g/dL (6.6-8.7)
[2023-11-06 11:21] LABS: Creatine Phosphokinase 354 U/L (39-308)
--- NOTE | 2023-11-06 11:30 | CTR_ITS ---
PROCEDURE INFORMATION: Exam: CT Chest Without Contrast; Diagnostic Exam date and time: 11/06/2023 2:01 PM Age: 23 years old Clinical indication: Abdominal tenderness and bloating and nausea and vomiting; Dyspnea; Additional info: Abdominal distention, n/v TECHNIQUE: Imaging protocol: Diagnostic computed tomography of the chest without contrast. Radiation optimization: All CT scans at this facility use at least one of these dose optimization techniques: automated exposure control; mA and/or kV adjustment per patient size (includes targeted exams where dose is matched to clinical indication); or iterative reconstruction. COMPARISON: CT chest wo con [id number] 04/15/2023 11:06 AM RADIATION DOSE METRICS: Total DLP (mGy-cm): 1238.33 FINDINGS: Lungs: No focal consolidation. Pleural spaces: No pneumothorax or pleural effusion. Heart: No coronary calcifications. No pericardial effusion. Lymph nodes: No enlarged lymph nodes. Vasculature: No aortic aneurysm. Bones/joints: No acute findings. Leftward curvature of the uppe thoracic spine. Soft tissues: No acute findings. PROCEDURE INFORMATION: Exam: CT Abdomen And Pelvis Without Contrast Exam date and time: 11/06/2023 2:01 PM Age: 23 years old Clinical indication: Abdominal tenderness and bloating and nausea and vomiting; Dyspnea; Additional info: Abdominal distention, n/v TECHNIQUE: Imaging protocol: Computed tomography of the abdomen and pelvis without contrast. Radiation optimization: All CT scans at this facility use at least one of these dose optimization techniques: automated exposure control; mA and/or kV adjustment per patient size (includes targeted exams where dose is matched to clinical indication); or iterative reconstruction. COMPARISON: CT abdomen pelvis w con* [id number] 04/13/2023 5:36 PM RADIATION DOSE METRICS: Total DLP (mGy-cm): 1238.33 FINDINGS: Liver: No acute findings Gallbladder and bile ducts: No cholelithiasis or evidence of acute cholecystitis. Pancreas: No ductal dilation. Spleen: No splenomegaly. Adrenal glands: No mass. Kidneys and ureters: No stones or hydronephrosis. Stomach and bowel: No obstruction. Appendix: No evidence of appendicitis. Intraperitoneal space: No free air. No significant fluid collection. Vasculature: No abdominal aortic aneurysm. Lymph nodes: No enlarged lymph nodes. Urinary bladder: No acute findings. Reproductive: No acute findings. Bones/joints: No acute findings. Soft tissues: No acute findings. CT/CT chest abdpel [id number] IMPRESSION: No acute chest findings. IMPRESSION: No acute abdominal findings.
--- NOTE | 2023-11-06 11:30 | ECG_ITS ---
[facility] Test Date: 2023-11-06 Pat Name: Doug Pantoja Department: Room: [facility] Gender: Male Technician Support Engineer: : 2000 Requested By: Alan Mc Order Number: [id number] Lance MD: Tom Phan M.D. Measurements Intervals [place] Rate: 107 P: 69 NM: 155 QRS: 68 QRSD: 92 T: 47 QT: 310 QTc: 415 Interpretive Statements SINUS TACHYCARDIA POSSIBLE LEFT ATRIAL ENLARGEMENT [-0.1mV P-WAVE IN V1/V2] Compared to ECG 11/05/2023 23:44:53 No significant changes Electronically Signed On 11-07-2023 7:54:51 EGG CASER by Tom Phan M.D. [id number]
[2023-11-06 12:04] LABS: Troponin(5th) Baseline 10 ng/L (0-15)
[2023-11-06 13:08] LABS: D Dimer 0.79 ug/mLFEU (0-0.59)
[2023-11-06 13:15] LABS: Troponin 5 2HR 8.25 ng/L (0-15)
[2023-11-06 13:20] LABS: Troponin 5 2HR Delta -1.75 ABS# (0-10)
[2023-11-06 16:23] LABS: Troponin 5 6HR 8.41 ng/L (0-15)
[2023-11-06 16:24] LABS: Troponin 5 6HR Delta -1.59 ng/L (0-12)
--- NOTE | 2023-11-06 18:39 | PC.NURSE ---
Shift SUmmary: Uneventful shift. Patient rested in bed throughout the day. Taken to CT for Abd/chest/pelvis. No seizure activity observed. Started on clear liquid diet near end of shift which patient tolerated poorly and vomited.
--- NOTE | 2023-11-06 19:25 | P.PN_ITS ---
Subjective 2 Subjective: Patient was seen this morning, patient's family is at bedside, they tell me that patient has had 2 breakthrough seizures in the last year, usually when he has a breakthrough seizure he has an infection, on examination he does have right upper quadrant pain, patient's family tells me that he is very picky in what he eats, he only eats chicken strips, the last time they kept on a restricted diet he did not eat for a month until he had very specific chicken strips he likes the chicken strips from our cafeteria, he has autism, developmental delay, he is alert to person, not to place, to time he is nonverbal, on examination he does have right upper quadrant tenderness to palpation, family is concerned that he possibly aspirated when the BiPAP mask was placed on him, usually he becomes very agitated when he is becoming sick, family feels that he is less agitated he is doing much better, he takes Keppra regularly for seizures, which she has been taking, I discussed potentially discussing with neurology tomorrow about adding on seizure medications, will order gallbladder ultrasound mai CT scan continue to monitor in ICU closely, but patient's hypercarbia has improved, he is less agitated he is on room air he is normotensive, will continue to avoid BiPAP as he had a lot of agitation with bipap Vitals/I&O/Wt Last Vital Signs Temp 97.8 F 11/06/23 16:40 Pulse 108 H 11/06/23 18:30 Resp 21 H 11/06/23 18:30 BP 130/74 11/06/23 18:30 Pulse Ox 93 11/06/23 17:55 O2 Del Method Room Air 11/06/23 16:40 O2 Flow Rate 12 11/05/23 23:13 FiO2 30 11/06/23 01:50 11/06/23 11/06/23 11/06/23 06:59 14:59 22:59 Intake Total 0 / 0 350 / 350 200 / 550 Balance 0 / 0 350 / 350 200 / 550 Weight last 48 hrs Weight 115.666 kg Weight 115.666 kg Weight 113.398 kg Physical Exam 2 Const: COMMON NORMALS: no acute distress ORIENTATION/CONSCIOUSNESS: Yes awake and Yes confused; not oriented to person, not oriented to place and not oriented to time Eye: COMMON NORMALS: Equal, round and reactive pupils present PUPIL: Yes Equal, round and reactive pupils present Neck/C-Spine: COMMON NORMALS: no JVD Resp: COMMON NORMALS: normal respiratory effort, No retractions, No use of accessory muscles and clear to auscultation bilaterally AUSCULTATION: clear to auscultation bilaterally Cardio: COMMON NORMALS: no JVD, regular rate, regular rhythm, S1 normal heart sound present and S2 normal heart sound present RATE: regular rate RHYTHM: regular rhythm HEART SOUNDS: S1 normal heart sound present and S2 normal heart sound present GI: COMMON NORMALS: Normal to inspection, nondistended, normoactive bowel sounds present and non-tender Extremity: COMMON NORMALS: no calf tenderness and no pedal edema Neuro: SENSORIUM/ORIENTATION: No oriented to person, No oriented to place and No oriented to time Data 11/06/23 10:09 11/06/23 10:09 A&P Assessment and plan (1) Generalized convulsive seizure: Patient brought to the emergency room today due to witnessed seizure episode. He has received 1 g loading dose in the emergency room. Will continue with home doses of 1 g IV every 12 hours until he is safe to resume p.o. intake. Currently appears to be in a postictal state, he is drowsy, following more commands Check Keppra level. Electrolytes within normal range (2) Autism: Nonverbal at baseline but able to carry on his ADLs usually. (3) Aspiration pneumonitis: Chest x-ray showing bilateral infiltrates. May be related to aspiration episode as witnessed in the emergency room. May have had additional episode at home. Start empiric treatment with ceftriaxone and metronidazole and monitor for response. Currently fever free, however has leukocytosis with white blood cell count of 25,000. Mother denies any complains of fever cough or sputum production prior to the events of today. (4) Acute hypercapnic respiratory failure: Likely related to poor GCS from seizure and aspiration pneumonia Management as above. Continue antibiotics Unable to tolerate BiPAP due to vomiting. CO2 improved with transient use of BiPAP. Patient is starting to be more awake, less lethargic at the time of this assessment. Will check repeat blood gas now. If CO2 fails to improve with improvement in mentation, may need to be intubated. Mother is agreeable for the same. (5) Aspiration pneumonia: Plan DVT prophylaxis: Lovenox Full code Patient was seen this morning, patient's family is at bedside, they tell me that patient has had 2 breakthrough seizures in the last year, usually when he has a breakthrough seizure he has an infection, on examination he does have right upper quadrant pain, patient's family tells me that he is very picky in what he eats, he only eats chicken strips, the last time they kept on a restricted diet he did not eat for a month until he had very specific chicken strips he likes the chicken strips from our cafeteria, he has autism, developmental delay, he is alert to person, not to place, to time he is nonverbal, on examination he does have right upper quadrant tenderness to palpation, family is concerned that he possibly aspirated when the BiPAP mask was placed on him, usually he becomes very agitated when he is becoming sick, family feels that he is less agitated he is doing much better, he takes Keppra regularly for seizures, which she has been taking, I discussed potentially discussing with neurology tomorrow about adding on seizure medications, will order gallbladder ultrasound mai CT scan continue to monitor in ICU closely, but patient's hypercarbia has improved, he is less agitated he is on room air he is normotensive, will continue to avoid BiPAP as he had a lot of agitation with bipap Attestations 2 Medical Necessity Statement*: patient requires hospitalization for breakthrough seizures, aspiration pneumonia Diagnoses Generalized convulsive seizure R56.9 Autism F84.0 Aspiration pneumonitis J69.0 Acute hypercapnic respiratory failure J96.02 Aspiration pneumonia J69.0
--- NOTE | 2023-11-06 19:32 | PC.NURSE ---
Addendum entered by Hanna Ramos RN 11/06/23 19:41: Witnessed waste of 1mg Ativan. Original Note: Nurse pulled 1mg of ativan IV to bring to CT with the patient in case seziures occurred during transport. No seizure activity. Ativan wasted. Hanna LAGUNAS witnessed.
[2023-11-06] MEDS: cloNIDine 0.1 mg Tablet 0.2 MG PO (20:49)
[2023-11-07] VITALS (13 sets, daily range): BP systolic 94–131; BP diastolic 53–92; PULSE 77–103; RESP 16–28; TEMP 37; O2SAT 94–96
[2023-11-07 04:10] LABS: Basophils % 0.1 %; Eosinophils % 0.2 %; Hematocrit 38.8 % (37-53); Lymphocytes # 2.4 10^3/uL (0.8-4.8); Lymphocytes % 21.7 %; Mean Corpuscular HGB Conc 31.7 g/dL (30-55); Mean Corpuscular Hemoglobin 29.6 pg (27-33); Mean Corpuscular Volume 93.5 fl (82-101); Monocytes # 1.1 10^3/uL (0.2-0.9); Monocytes % 9.4 %; Neutrophils # 7.65 10^3/uL (1.8-7.7); Neutrophils % 68.2 %; Nucleated Red Blood Cells % 0 %; Platelet Count 317 10^3/cmm (157-399); Red Blood Count 4.15 10^6/uL (3.85-5.65); Red Cell Distribution Width 12.6 % (12.1-15.1); White Blood Count 11.22 10^3/uL (3.29-11.43)
[2023-11-07] MEDS: cefTRIAXone 1,000 MG in sodium chloride 0.9% (plus) 50 ML 100 MG IV (04:16)
[2023-11-07 04:39] LABS: Alanine Aminotransferase 13 U/L (0-41); Albumin Level 4.2 g/dL (3.5-5.2); Alkaline Phosphatase 65 U/L (40-130); Anion Gap 15.7 (5-19); Aspartate Amino Transferase 17 U/L (0-40); Blood Urea Nitrogen 13 mg/dL (6-20); Calcium 9.4 mg/dL (8.5-10.5); Carbon Dioxide 28 mmol/L (22-29); Chloride 102 mmol/L (98-107); Globulin 3.1 g/dL (1.3-4.6); Glucose 101 mg/dL (65-115); Osmolality Calculated 294 mOsm/kg (285-295); Potassium 3.7 mmol/L (3.5-5.1); Sodium 142 mmol/L (136-145); Total Bilirubin 0.4 mg/dL (0.15-1.2); Total Protein 7.3 g/dL (6.6-8.7)
[2023-11-07] MEDS: metroNIDAZOLE IV 500 MG/100 ML PREMIX 100 MG IV ×2 (05:46→13:59)
[2023-11-07] MEDS: levETIRAcetam 1,000 MG/100 ML PREMIX 400 MG IV (05:47)
[2023-11-07] MEDS: enoxaparin 40 mg/0.4 mL Syringe SUBCUT (05:50)
[2023-11-07] MEDS: sertraline 100 mg Tablet 150 MG PO (09:06)
[2023-11-07] MEDS: propranolol 20 mg Tablet 10 MG PO (09:06)
[2023-11-07] MEDS: pantoprazole DR 40 mg Tablet PO (09:07)
[2023-11-07] MEDS: sodium chloride 0.9% 1,000 ML 75 ML IV (09:07)
--- NOTE | 2023-11-07 15:13 | PM.DCS ---
Discharge Providers Date of Admission: 11/06/23 04:06 Date of Discharge: November 07, 2023 Attending Provider at Admission: Flor King MD Attending Provider at Discharge: Wilbert Vogt Primary Care Provider: Roxann Martinez MD Diagnoses at Discharge Discharge Diagnosis (1) Generalized convulsive seizure: Status: Acute (2) Autism: Status: Acute (3) Aspiration pneumonitis: Status: Acute (4) Acute hypercapnic respiratory failure: Status: Acute (5) Aspiration pneumonia: Status: Acute Reason for Visit Reason for Visit: seizures Hospital Course Hospital Course 23-year-old gentleman with autism, developmental disorder, epilepsy, came in after a seizure witnessed by his mother, followed by unresponsiveness, presentation with hypercapnic respiratory failure, was on BiPAP support transiently but also had episode of emesis, with concern for aspiration pneumonitis/pneumonia was started on antibiotics. Some right upper quadrant pain was assessed with gallbladder ultrasound which only showed incidental finding of fatty liver. CT chest abdomen pelvis was obtained which was unremarkable. His mental status is improved and returned to baseline. He has weaned off any oxygen support and is back to room air. Does not appear in any discomfort. No abdominal tenderness on palpation. Touching base with our neurologist whom he had previously seen in office, his Keppra dose is increased to 1500 mg twice daily. Discussed with his mother. He is asked to follow-up with neurology, his mother states he now has a neurologist established in [place] where they will follow-up. Keppra level is pending, please follow-up. Physical Exam Narrative: Awake, alert, watching TV. Accompanied by his mother. Mother states he is back to his baseline. Const: COMMON NORMALS: patient oriented x3 and alert GENERAL APPEARANCE: cooperative NUTRITIONAL APPEARANCE: overweight ORIENTATION/CONSCIOUSNESS: Yes awake OTHER: Nonverbal. HENMT: COMMON NORMALS: oropharynx normal Neck/C-Spine: COMMON NORMALS: no JVD Resp: COMMON NORMALS: normal respiratory effort and clear to auscultation bilaterally AUSCULTATION: clear to auscultation bilaterally Cardio: COMMON NORMALS: no JVD, regular rhythm, S1 normal heart sound present, S2 normal heart sound present and No murmurs present (Cardio) RHYTHM: regular rhythm HEART SOUNDS: S1 normal heart sound present and S2 normal heart sound present GI: COMMON NORMALS: Normal to inspection, nondistended, normoactive bowel sounds present, Soft to palpation and non-tender PALPATION: Yes Soft to palpation Extremity: COMMON NORMALS: no joint enlargement and no pedal edema Neuro: COMMON NORMALS: patient oriented x3 and moves all extremities SENSORIUM/ORIENTATION: Yes alert Skin: COMMON NORMALS: no rashes or lesions noted GENERAL SKIN EXAM: no rashes or lesions noted Discharge Data Studies Completed and Pending Completed Studies During Hospitalization Category [place] [id number] Stat Cat Scan 11/06/23 11:[address] head wo con* [id number] Stat Cat Scan 11/06/23 00:55 Completed XR KUB portable [id number] Routine Exams 11/06/23 09:45 Completed XR chest 1V portable [id number] Stat Exams 11/05/23 23:31 Completed US gall bladder [id number] Routine Ultrasound 11/06/23 09:50 Completed Pending at discharge Category Date Time Status KEPPRA [Levetiracetam Immunoassy] Routine Lab 11/06/23 05:31 Received Urinalysis Stat Lab 11/06/23 03:17 Uncollected Radiology Impressions Chest X-Ray 11/05/23 23:31 IMPRESSION: Left retrocardiac and bibasilar opacities, may represent atelectasis and/or consolidation.. Head CT 11/06/23 00:55 IMPRESSION: No acute findings. KUB X-Ray 11/06/23 09:45 IMPRESSION: No acute findings. Gallbladder Ultrasound 11/06/23 09:50 IMPRESSION: Hepatic steatosis. Chest/Abdomen/Pelvis CT 11/06/23 11:30 IMPRESSION: No acute chest findings. IMPRESSION: No acute abdominal findings. Laboratory Results WBC 11.22 10^3/uL (3.29-11.43) 11/07/23 03:36 RBC 4.15 10^6/uL (3.85-5.65) 11/07/23 03:36 Hgb 12.30 g/dL (11.27-16.99) 11/07/23 03:36 Hct 38.8 % (37-53) 11/07/23 03:36 MCV 93.5 fl (82-101) 11/07/23 03:36 MCH 29.6 pg (27-33) 11/07/23 03:36 MCHC 31.7 g/dL (30-55) 11/07/23 03:36 RDW 12.6 % (12.1-15.1) 11/07/23 03:36 Plt Count 317 10^3/cmm (157-399) 11/07/23 03:36 MPV 9.0 fL (7.4-10.4) 11/07/23 03:36 Neut % (Auto) 68.2 % 11/07/23 03:36 Lymph % (Auto) 21.7 % 11/07/23 03:36 Talbot % (Auto) 9.4 % 11/07/23 03:36 Eos % (Auto) 0.2 % 11/07/23 03:36 Baso % (Auto) 0.1 % 11/07/23 03:36 Neut # (Auto) 7.65 10^3/uL (1.8-7.7) 11/07/23 03:36 Lymph # (Auto) 2.4 10^3/uL (0.8-4.8) 11/07/23 03:36 Talbot # (Auto) 1.1 10^3/uL (0.2-0.9) H 11/07/23 03:36 Eos # (Auto) 0.0 10^3/uL (0.0-0.8) 11/07/23 03:36 Baso # (Auto) 0.0 10^3/uL (0.0-0.1) 11/07/23 03:36 Nucleated RBC % (auto) 0 % 11/07/23 03:36 Nucleated RBCs # 0.0 /100WBC 11/07/23 03:36 ESR 17 mm/hr (0-10) H 11/06/23 10:09 D-Dimer 0.79 ug/mLFEU (0-0.59) H 11/06/23 12:04 Specimen Type Arterial 11/06/23 05:05 Sample Site Radial, left 11/06/23 05:05 ABG pH 7.32 (7.35-7.45) L 11/06/23 05:05 ABG pCO2 61.2 mmHg (35-45) H* 11/06/23 05:05 ABG pO2 120.0 mmHg (80.0-100.0) H 11/06/23 05:05 ABG PO2/FiO2 Ratio 0 11/06/23 05:05 ABG HCO3 31.5 mmol/L (22-26) H 11/06/23 05:05 ABG Base Excess 3.6 mmol/L (-2.0-2.0) H 11/06/23 05:05 Forrest Test Pos 11/06/23 05:05 Hematocrit 43.5 % (42-52) 11/06/23 05:05 O2 Delivery Device Nc 11/06/23 05:05 O2 Liters/Min 4.0 % 11/06/23 05:05 FiO2 36.0 % 11/06/23 05:05 Manager Media Relations ID Alewe 11/06/23 05:05 Sodium 142 mmol/L (136-145) 11/07/23 03:36 Potassium 3.7 mmol/L (3.5-5.1) 11/07/23 03:36 Chloride 102 mmol/L (98-107) 11/07/23 03:36 Carbon Dioxide 28 mmol/L (22-29) 11/07/23 03:36 Anion Gap 15.7 (5-19) 11/07/23 03:36 BUN 13 mg/dL (6-20) 11/07/23 03:36 Creatinine 0.8 mg/dL (0.7-1.2) 11/07/23 03:36 GFR Calculation 122.0 mL/min (90-130) 11/07/23 03:36 Glucose 101 mg/dL (65-115) 11/07/23 03:36 Calculated Osmolality 294 mOsm/kg (285-295) 11/07/23 03:36 Lactic Acid 1.5 mmol/L (0.5-2.2) 11/06/23 10:09 Calcium 9.4 mg/dL (8.5-10.5) 11/07/23 03:36 Phosphorus 2.7 mg/dL (2.5-4.5) 11/06/23 10:09 Magnesium 2.2 mg/dL (1.7-2.3) 11/06/23 10:09 Total Bilirubin 0.4 mg/dL (0.15-1.2) 11/07/23 03:36 AST 17 U/L (0-40) 11/07/23 03:36 ALT 13 U/L (0-41) 11/07/23 03:36 Alkaline Phosphatase 65 U/L (40-130) 11/07/23 03:36 Ammonia 66 umol/L (16-60) H 11/06/23 10:09 Creatine Kinase 354 U/L (39-308) H* 11/06/23 10:09 Troponin T Baseline 10 ng/L (0-15) 11/06/23 10:09 Troponin T 120 Minute 8.25 ng/L (0-15) 11/06/23 12:04 Delta Troponin T -1.75 ABS# (0-10) L 11/06/23 12:04 Troponin T Hi Sens 6Hr 8.41 ng/L (0-15) 11/06/23 15:44 Troponin T Hi Sens 6Hr Delta -1.59 ng/L (0-12) L 11/06/23 15:44 C-Reactive Protein 13.7 mg/L (0.0-4.9) H 11/06/23 10:09 Total Protein 7.3 g/dL (6.6-8.7) 11/07/23 03:36 Albumin 4.2 g/dL (3.5-5.2) 11/07/23 03:36 Globulin 3.1 g/dL (1.3-4.6) 11/07/23 03:36 Procalcitonin 0.28 ng/mL (0-0.5) 11/06/23 10:09 Vitals Last Vital Signs Temp 98.6 F 11/07/23 09:00 Pulse 83 11/07/23 11:38 Resp 17 11/07/23 11:38 BP 116/84 11/07/23 11:38 Pulse Ox 96 11/07/23 09:14 O2 Del Method Room Air 11/07/23 09:14 O2 Flow Rate 12 11/05/23 23:13 FiO2 30 11/06/23 01:50 Discharge Plan Discharge Patient Disposition: Home Condition: Good Prescriptions: New levofloxacin 750 mg tablet 750 mg PO DAILY Qty: 4 0RF Continued sertraline 100 mg tablet 150 mg PO DAILY hydroxyzine HCl 25 mg tablet 25 mg PO TID PRN (Reason: Itching) Qty: 30 1RF polyethylene glycol 3350 [Miralax] 17 gram Powder In Packet 17 g PO BID PRN (Reason: Constipation) dicyclomine 20 mg tablet 20 mg PO BID docusate sodium 100 mg capsule 200 mg PO BID PRN (Reason: Constipation) ondansetron 4 mg tablet,disintegrating 4 mg PO Q8H PRN (Reason: Nausea And Vomiting) magnesium oxide 400 mg (241.3 mg magnesium) Tablet 400 mg PO BID Qty: 60 0RF Phospha 250 Neutral 250 mg Tablet 250 mg PO BID Qty: 60 0RF multivitamin with folic acid [Thera] 400 mcg Tablet 1 tab PO DAILY Qty: 30 0RF propranolol 10 mg tablet 10 mg PO BID clonidine HCl 0.2 mg tablet 0.2 mg PO BEDTIME Changed levetiracetam 1,000 mg tablet 1,500 mg PO BID Qty: 90 0RF Discharge Orders: Discharge Order (Routine); Ordered 11/07/23 Ordered By: Wilbert Vogt Referrals: Your, neurologists [Other] - 1 week (Epilepsy) Roxann Martinez MD [Primary Care Provider] - 4-7 days Patient Instructions: Levofloxacin (By mouth), Levetiracetam (By mouth), Aspiration Pneumonia (GEN), Epilepsy (GEN) Activity Restrictions/Additional Instructions: Return to the hospital in case of any worsening or new concerning symptoms. Follow-up neurologist regarding breakthrough seizure. Adjustment in Keppra dose. Follow-up with your primary provider for reassessment of recovery from aspiration pneumonitis/pneumonia. Follow-up with your primary doctor for reassessment of incidentally seen steatosis of the liver. Discharge Attestations Time Spent in Discharge Care*: greater than 30 min Status at Discharge: Cognitive status at discharge: severely impaired cognition, Behavioral status at discharge: cooperative, Quality Metrics Clinical Quality Measures [ No reported AMI, CVA or VTE this stay] Coding Level of Care Code 32809 Total time (in minutes) for Discharge: 55 Diagnoses Generalized convulsive seizure R56.9 Autism F84.0 Aspiration pneumonitis J69.0 Acute hypercapnic respiratory failure J96.02 Aspiration pneumonia J69.0
--- NOTE | 2023-11-07 16:06 | PC.NURSE ---
Discharge Note Patient discharged to home via POV accompanied by mom. Discharge instructions reviewed with patient and/or event representative. Mobile pharmacy medications and/or prescriptions provided. Belongings/home medications returned.
[2023-11-08 10:04] LABS: Levetiracetam Immunoassy 28.5 mcg/mL (6.0-46.0)
== END 2023-11-07 16:07 | disposition home or self-care (01) | DRG 100 ==
LOC: ER 11-06 03:08 → ICU 11-06 04:07
PROVIDERS: Family Medicine; Admitting Provider Student in an Organized Health Care Education/Training Program; Emergency Provider Emergency Medicine; PCP Pediatrics Adolescent Medicine; Visit Provider Internal Medicine
DX: G40.409 Other generalized epilepsy and epileptic syndromes, not intractable, without status epilepticus (principal); J69.0 Pneumonitis due to inhalation of food and vomit; J96.02 Acute respiratory failure with hypercapnia; F84.0 Autistic disorder; F41.9 Anxiety disorder, unspecified; R62.50 Unspecified lack of expected normal physiological development in childhood; K76.0 Fatty (change of) liver, not elsewhere classified
CPT/HCPCS: 36415; 36600; 70450; 71045; 71250; 74018; 74176; 76705; 80053; 80177; 82140; 82550; 82803; 83605; 83735; 84100; 84145; 84484; 85025; 85378; 85651; 86140; 93005; 94660; 94664; 96365; 96372; 96375; 96376; 99291; J0696; J1650; J1953; J2060; J2405; J3490; J7030; Q3014

== ENCOUNTER → 2025-08-07 10:35 | Outpatient (BNVA) | payer MEDICARE, MEDICAID, OTHER, SELFPAY | PROVIDERS: PCP Clinical Nurse Specialist Adult Health; Visit Provider Clinical Nurse Specialist Adult Health | DX: F84.0 Autistic disorder (principal); G47.00 Insomnia, unspecified; E66.9 Obesity, unspecified | CPT/HCPCS: 80053; 80177 ==

== ENCOUNTER 2025-08-11 18:53 | Emergency (ER) | payer MEDICARE, MEDICAID, SELFPAY ==
[2025-08-11 18:55] VITALS: BP 140/75; PULSE 101; RESP 18; TEMP 37.3; O2SAT 94; BMI 37.3
--- OUTSIDE RECORDS SUMMARY | 2025-08-11 19:04 | XMS_ITS | Clinical Summary ---
Author Organization [facility] Address [address] [place]: Epic Prelude ADT REYNA GRAY [address] Care Team Providers Care It Sales Representative Name Role Phone Roxann Martinez MD Primary Care Provider Allergies Active Allergy Reactions Criticality Noted Date Comments Penicillins Nausea and Vomiting Medium 12/03/2009 Sulfa (Sulfonamide Antibiotics) Other (See Comments) 06/11/2024 Medications sertraline 150 mg Capsule Take 225 mg by mouth daily. Active clonazePAM (KlonoPIN RAPID DISSOLVE) 0.25 mg Tablet, Rapid Dissolve Take 0.25 mg by mouth daily at bedtime. Active PROPRANOLOL-HYDR OCHLOROTHIAZID ORAL Take 10 mg by mouth 2 times daily. Active multivitamin (DAILY-DAVID) tablet Take 1 Tablet by mouth daily. Active cloNIDine HCL (CATAPRES) 0.3 mg tablet Take 0.3 mg by mouth daily. 8pm Active loratadine (CLARITIN) 10 mg tablet Take 10 mg by mouth daily. Active traZODone (DESYREL) 50 mg tablet Take 25 mg by mouth daily at bedtime. Active polyethylene glycol 3350 (MIRALAX) 17 gram/dose Powder Take by mouth 1 time daily as needed for Constipation. Dissolve in 8 ounces of fluid and drink entire liquid prn Active acetaminophen (TYLENOL) 325 mg tablet Take 650 mg by mouth every 6 hours as needed. Active polycarbophil calcium (FIBERCON) 625 mg tablet Take 625 mg by mouth daily. Active levETIRAcetam (Keppra) 1,000 mg tabletIndication s:Nonintractable epilepsy without status epilepticus, unspecified epilepsy type (CMS/HCC),Medica tion refill Take 1.5 Tablets (1,500 mg) by mouth 2 times daily. 90 Tablet 11 5 Active Active Problems Problem Noted Date Diagnosed Date Seizures 06/11/2022 Abdominal pain 12/04/2009 Pneumonia 12/04/2009 Resolved Problems Problem Noted Date Diagnosed Date Resolved Date Status epilepticus 06/11/2022 Acute respiratory failure with hypercapnia 06/11/2022 06/15/2022 Hypokalemia 06/11/2022 06/15/2022 Encounters Date Type Department Care Team Description 06/10/2025 10:17 AM CDT - 06/10/2025 11:59 PM CDT Hospital Encounter [facility] [place] [address] [place] [phone] Rico Nino, CHINMAY Discharge Disposition: Home or Self Care 05/24/2025 Telephone [facility] [place] [address] [place] [phone] Rico Nino NP Information 05/13/2025 12:30 PM CDT Office Visit [place] [address] [place] [phone] Rico Nino, LIBRARY TECHNICIAN Nonintractable epilepsy without status epilepticus, unspecified epilepsy type (CMS/HCC) (Primary Dx); Breakthrough seizure (CMS/HCC); Autism; Medication refill from Last 3 Months Family History Medical History Relation Name Comments COPD Father Ha Sleep Disorder Father Ha Healthy Mother Gail Healthy Sister Vanna Relation Name Status Comments Father Ha Alive Mother Gail Alive Sister Vanna Alive Social History Tobacco Use Types Packs/Day Years Used Date Smoking Tobacco: Never Passive Smoke Exposure: Current Smokeless Tobacco: Never Tobacco Cessation:Counseling Given: Not Answered Alcohol Use Standard Drinks/Week Comments Never 0 (1 standard drink = 0.6 oz pur e alcohol) Feeling Safe Answer Date Recorded Are you in a relationship wi th someone who hurts you emotionally and/or physically? 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 Gender Identity Not on file Sexual Orientation Not on file Last Filed Vital Signs Vital Sign Reading Time Taken Comments Blood Pressure 108/70 05/13/2025 11:59 AM CDT Pulse 83 05/13/2025 11:59 AM CDT Temperature 36 C (96.8 F) 11/29/2024 3:10 PM ANIMAL RESEARCHER Respiratory Rate 16 05/13/2025 11:5 9 AM CDT Oxygen Saturation 96% 05/13/2025 11: 59 AM CDT Inhaled Oxygen Concentration - - Weight 126.9 kg (279 lb 12.8 oz) 2024 11:59 AM CDT Height 188 cm (6' 2 ) 04/01/2023 5:19 PM CDT Body Mass Index 35.92 04/01/2023 5:19 PM CDT Plan of Treatment Upcoming Encounters Date Type Department Care Team (Late st Contact Info) Description 11/25/2025 12:30 PM ANIMAL RESEARCHER Office Visit [facility] - [place] [address] [facility] [address] [place] [phone] Rico Nino, CHINMAY [address] [place] [phone] Health Maintenance Due Date Last Done Comments DTAP/TDAP/TD VACCINES (6 - Tdap) 2013 05/17/2007, 02/06/2004, 05/23/2003, Additional history exists HPV VACCINES (1 - Male 3-dos e series) 2017 HEPATITIS B VACCINES (1 of 3 - 19+ 3-dose series) 2021 INFLUENZA VACCINE (#1) 2025 Insurance MEDICARE PART A AND B [place]ICAID [place] Advance Directives For more information, please contact: [phone] Documents on File Type Date Recorded Patient Cook Helper Juice Expl anation Authorization to Represent 04/24/2024 12:06 PM Caregiver transportation form * Full Code (Latest Code Status on File) Date Activated Date Inactivated Comments 11/29/2024 12:38 PM 11/29/2024 5:56 PM * Full Code Date Activated Date Inactivated Comments 06/11/2022 3:02 AM 06/15/2022 4:43 PM Care Teams It Sales Representative Relationship Specialty Start Date End Date Roxann Martinez MD [address] [place] [phone] PCP - General Pediatrics 06/15/22
--- NOTE | 2025-08-11 19:13 | CTR_ITS ---
PROCEDURE INFORMATION: Exam: CT Head Without Contrast Exam date and time: 08/11/2025 7:43 PM Age: 24 years old Clinical indication: Condition or disease; Convulsions or seizures; Epilepsy; EMS arrival for seizure. History of epileptiic seizure disorder. ; Additional info: Status epilepticus TECHNIQUE: Imaging protocol: Computed tomography of the head without contrast. Radiation optimization: All CT scans at this facility use at least one of these dose optimization techniques: automated exposure control; mA and/or kV adjustment per patient size (includes targeted exams where dose is matched to clinical indication); or iterative reconstruction. COMPARISON: CT head wo con* [id number] 11/06/2023 1:06 AM RADIATION DOSE METRICS: Total DLP (mGy-cm): 881.88 FINDINGS: Brain: Normal. No hemorrhage. Unremarkable white matter. No mass effect. Cerebral ventricles: No ventriculomegaly. Paranasal sinuses: Visualized sinuses are unremarkable. No fluid levels. Mastoid air cells: Visualized mastoid air cells are well aerated. Bones: Unremarkable. No acute fracture. Soft tissues: Unremarkable. CT/CT head wo con* [id number] IMPRESSION: No acute intracranial abnormality.
--- NOTE | 2025-08-11 19:15 | ECG_ITS ---
[facility] Date: 2025-08-11 Pat Name: Doug Pantoja Department: Room: Gender: Male Head Resident: : 2000 Requested By: Carlton Marino Order Number: [id number] Lucas MD: Jesse Helm M.D. Measurements Intervals [place] Rate: 102 P: 46 LA: 165 QRS: 54 QRSD: 101 T: 44 QT: 317 QTc: 414 Interpretive Statements SINUS TACHYCARDIA ABNORMAL RHYTHM ECG Compared to ECG 11/06/2023 12:17:39 No significant changes Electronically Signed On 08-13-2025 19:46:14 CDT by Jesse Helm M.D. [email or web address]
--- NOTE | 2025-08-11 19:20 | ED_ITS ---
HPI - Seizure 2 General: Chief Complaint: Seizure Stated Complaint: SEZIURE Time Seen by Provider: 08/11/25 18:55 Source: family, EMS and old records reviewed Mode of arrival: EMS Limitations: physical limitation History of Present Illness: HPI Narrative: Patient is a 24-year-old male with past medical history of nonverbal autism and epilepsy who is brought in by ambulance for 3 seizures tonight. Guardian in the room, states that patient typically has tonic-clonic seizures but tonight had 3 separate absence seizure's, stating that his eyes rolled back in his head and were intermittently twitching, and this lasted for approximately 5 minutes each with no real return to baseline. He became significantly tired afterwards, EMS confirmed this, no medications given prehospital. Guardian notes patient has vomited a few times recently, but no fevers or other signs or symptoms of illness. She is also notes that he is back to baseline at this time. No focal neurological deficit, his neurologist is in [place]. He takes Keppra, guardian states that she thinks that this level is subtherapeutic for him. No recent medication changes. No head trauma. Review of system is unobtainable due to patient's medical conditions. MD complaint: seizure Onset (ago): hour(s) Description of Episode: other (Absence, eyes rolled back in head and twitching) Duration of episode: 5 -: minutes(s) Witnessed: Yes - by Bystander Trauma: No Seizure History: Yes Place: Home Treatments prior to arrival: none Related Data Previous Rx's ?Medication ?Instructions ?Recorded levetiracetam 1,000 mg tablet 1,500 mg (1.5 x 1,000 mg ) PO BID 11/07/23 #90 tabs Depend adult diapers #200 ea 06/27/25 acetaminophen 500 mg capsule 500 mg PO Q6H PRN fever o r pain 06/27/25 #180 caps loratadine 10 mg tablet (Allergy 10 mg PO DAILY #90 ta bs 06/27/25 Relief (loratadine)) methyl salicylate-menthol 30 %-10 1 applic topical BID PRN muscle 06/27/25 % topical stick (Icy Hot) pain #49 grams multivitamin with folic acid 400 1 tab PO DAILY #90 ta bs 06/27/25 mcg tablet (Thera) mupirocin 2 % topical ointment 1 applic topical BID HI N skin 06/27/25 (Centany) infection #15 grams polyethylene glycol 3350 17 17 g PO DAILY constipation #238 06/27/25 gram/dose oral powder (Miralax) grams psyllium husk 0.4 gram capsule 0.4 g PO DAILY #90 caps 06/27/25 clonidine HCl 0.3 mg tablet 0.3 mg PO BEDTIME #30 tabs 08/05/25 propranolol 10 mg tablet 10 mg PO BID #60 tabs sertraline 100 mg tablet 150 mg (1.5 x 100 mg) PO SCAR LY #45 08/05/25 tabs trazodone 50 mg tablet 25 mg (1/2 x 50 mg) PO DAILY #15 08/05/25 tabs Allergies Allergy/AdvReac Type Severity Reaction Status Date / Time Penicillins Allergy ADR-Nausea Verified 08/11/25 19:00 Sulfa (Sulfonamide Allergy Unknown Verified 08/11/25 19:00 Antibiotics) Review of Systems 2 General: Reports: ROS unobtainable due to medical condition PFSH ED 2 PFSH: Medical History (Updated 08/11/25 @ 22:18 by SILVIA Tabares) Psychiatric care Incontinence of urine Autism Folic acid deficiency Vitamin B12 deficiency Hydrocele Noted May 2019. Decreased in size by report July 2019 and continued report May 2022. Pneumonia Generalized seizure Incontinence of feces Epilepsy Managed by Neurology Autism disorder Seasonal allergic rhinitis, unspecified trigger Anxiety Surgical History Hx of myringotomy History of tonsillectomy and adenoidectomy Family History Other CAD (coronary artery disease) Cancer Lung disease Migraines, neuralgic Social History Smoking and tobacco/nicotine status: never used tobacco/nicotine Alcohol intake: never Substance/Drug Use: never Adopted: No Caregiver/support person: Yes Lives independently: No Physical Exam 2 Const: COMMON NORMALS: alert EXAM LIMITATIONS: behavioral limitations and physical limitations NUTRITIONAL APPEARANCE: obese O RIENTATION/CONSCIOUSNESS: Yes awake OTHER: Nonverbal autistic, not lethargic at this time, nontoxic-appearing HENMT: COMMON NORMALS: normocephalic and atraumatic HEAD & SCALP: n ormocephalic and atraumatic Eye: OTHER: Pupils dilated bilaterally but reactive to light, eyes track midline Neck/C-Spine: COMMON NORMALS: full ROM Chest: COMMONS NORMALS: normal inspection of the chest and normal palpation of entire chest wall Resp: COMMON NORMALS: normal respiratory effort, No retractions, No use of accessory muscles and clear to auscultation bilaterally AUSCULTATION: clear to auscultation bilaterally Cardio: COMMON NORMALS: regular rate, regular rhythm, S1 normal heart sound present and S2 normal heart sound present RATE: regular rate RHYTHM: r egular rhythm HEART SOUNDS: S1 normal heart sound present and S2 normal heart sound present GI: COMMON NORMALS: Soft to palpation and non-tender PALPATION: Yes Soft to palpation Extremity: COMMON NORMALS: normal to inspection and full ROM Neuro: COMMON NORMALS: moves all extremities, no focal motor deficits and no sensory deficits noted SENSORIUM/ORIENTATION: Yes alert OTHER: Moves all extremities Skin: COMMON NORMALS: no rashes or lesions noted GENERAL SKIN EXAM: no rashes or lesions noted Course 2 Vital Signs: Vital signs: Vital Signs Temperature 99.2 F 08/11/25 18:55 Pulse Rate 100 08/11/25 22:33 Respiratory Rate 16 08/11/25 22:33 Blood Pressure 116/61 08/11/25 22:33 Pulse Oximetry 98 08/11/25 22:33 Oxygen Delivery Me thod Room Air 08/11/25 21:17 MDM - Seizure MDM Narrative Medical decision making narrative: Patient present by ambulance, guardian had reported 3 absence seizures today, has a history of epilepsy but states that his seizures are normally myoclonic jerking. Sees neurology in [place]. He is not postictal on arrival, he is acting at baseline, does have a history of nonverbal autism. Has had some diarrhea but no fevers or other symptoms of acute illness reported at home. Head CT negative. Chest x-ray showing no signs of aspiration. VBG does not show any significant findings, there is leukocytosis noted but this is likely transient and seizure related. His COVID swab negative, urinalysis showing no infection. Rest of his lab work unremarkable. With a reliable follow-up, appropriate medications, and no seizure-like activity or other concerns here in the ED at this time this patient is stable for discharge home with outpatient follow-up. Guardian agrees with this plan, discussed case with Dr. Cross. Lab Data 08/11/25 19:10 08/11/25 19:10 Labs: Radiology Impressions Head CT 08/11/25 19:13 IMPRESSION: No acute intracranial abnormality. Chest X-Ray 08/11/25 19:45 IMPRESSION: No acute findings. Laboratory Results WBC 17.83 10^3/uL (3.29-11.43) H 08/11/25 19:10 RBC 5.44 10^6/uL (3.85-5.65) 08/11/25 19:10 Hgb 15.50 g/dL (11.27-16.99) 08/11/25 19:10 Hct 48.0 % (37-53) 08/11/25 19:10 MCV 88.2 fl (82-101) 08/11/25 19:10 MCH 28.5 pg (27-33) 08/11/25 19:10 MCHC 32.3 g/dL (30-55) 08/11/25 19:10 RDW 13.2 % (12.1-15.1) 08/11/25 19:10 Plt Count 326 10^3/cmm (157-399) 08/11/25 19:10 MPV 9.3 fL (7.4-10.4) 08/11/25 19:10 Neut % (Auto) 84.3 % 08/11/25 19:10 Lymph % (Auto) 10.4 % 08/11/25 19:10 [place] % (Auto) 4.4 % 08/11/25 19:10 Eos % (Auto) 0.2 % 08/11/25 19:10 Baso % (Auto) 0.2 % 08/11/25 19:10 Neut # (Auto) 15.02 10^3/uL (1.8-7.7) H 08/11/25 19:10 Lymph # (Auto) 1.9 10^3/uL (0.8-4.8) 08/11/25 19:10 [place] # (Auto) 0.8 10^3/uL (0.2-0.9) 08/11/25 19:10 Eos # (Auto) 0.0 10^3/uL (0.0-0.8) 08/11/25 19:10 Baso # (Auto) 0.0 10^3/uL (0.0-0.1) 08/11/25 19:10 Nucleated RBC % (auto) 0 % 08/11/25 19:10 Nucleated RBCs # 0.0 /100WBC 08/11/25 19:10 Specimen Type Venous 08/11/25 20:19 [place] Test N/a 08/11/25 20:19 VBG pH 7.34 (7.32-7.42) 08/11/25 20:19 VBG pCO2 55.1 mmHg (41-51) H 08/11/25 20:19 VBG pO2 35.7 mmHg (25-40) 08/11/25 20:19 VBG HCO3 29.9 mmol/L (24-28) H 08/11/25 20:19 VBG Base Excess 2.6 mmol/L (-3.0-3.0) 08/11/25 20:19 VBG Hematocrit 49.2 % (42-52) 08/11/25 20:19 Substance Abuse Nurse ID [email or web address] 08/11/25 20:19 Sodium 136 mmol/L (136-145) 08/11/25 19:10 Potassium 4.8 mmol/L (3.5-5.1) 08/11/25 19:10 Chloride 97 mmol/L (98-107) L 08/11/25 19:10 Carbon Dioxide 23 mmol/L (22-29) 08/11/25 19:10 Anion Gap 20.8 (5-19) H 08/11/25 19:10 BUN 13 mg/dL (6-20) 08/11/25 19:10 Creatinine 0.7 mg/dL (0.7-1.2) 08/11/25 19:10 GFR Calculation 141.0 mL/min (90-130) H 08/11/25 19:10 Glucose 108 mg/dL (65-115) 08/11/25 19:10 Calculated Osmolality 283 mOsm/kg (285-295) L 08/11/25 19:10 Lactic Acid 1.7 mmol/L (0.5-2.2) 08/11/25 19:10 Calcium 9.4 mg/dL (8.5-10.5) 08/11/25 19:10 Magnesium 2.2 mg/dL (1.7-2.3) 08/11/25 19:10 Total Bilirubin 0.3 mg/dL (0.15-1.2) 08/11/25 19:10 AST 28 U/L (0-40) 08/11/25 19:10 ALT 30 U/L (0-41) 08/11/25 19:10 Alkaline Phosphatase 120 U/L (40-130) 08/11/25 19:10 Creatine Kinase 245 U/L (39-308) 08/11/25 19:10 Total Protein 8.0 g/dL (6.6-8.7) 08/11/25 19:10 Albumin 4.6 g/dL (3.5-5.2) 08/11/25 19:10 Globulin 3.4 g/dL (1.3-4.6) 08/11/25 19:10 Urine Color Yellow (Yellow) 08/11/25 21:08 Urine Appearance Clear (CLEAR) 08/11/25 21:08 Urine pH 7.0 (5-7) 08/11/25 21:08 Ur Specific [place] 1.018 (1.005-1.030) 08/11/25 21:08 Urine Protein Negative (Negative) 08/11/25 21:08 Urine Glucose (UA) Negative (Normal) 08/11/25 21:08 Urine Ketones Trace (Negative) 08/11/25 21:08 Urine Blood 1+ (Negative) A 08/11/25 21:08 Urine Nitrate Negative (Negative) 08/11/25 21:08 Urine Bilirubin Negative (Negative) 08/11/25 21:08 Urine Urobilinogen 1.0 mg/dL (Negative) 08/11/25 21:08 Ur Leukocyte Esterase Negative (Negative) 08/11/25 21:08 Urine RBC 10-15 /hpf (0-2) H 08/11/25 21:08 Urine WBC 0-4 /hpf (0-5) H 08/11/25 21:08 Ur Squamous Epith Cells 0-4 /hpf (0-5) H 08/11/25 21:08 Amorphous Sediment Not Reportable 08/11/25 21:08 Urine Bacteria Trace /hpf (NONE) 08/11/25 21:08 Urine Opiates Screen Negative ng/mL (Negative) 08/11/25 21:08 Ur Barbiturates Screen Negative ng/mL (Negative) 08/11/25 21:08 Ur Phencyclidine Scrn Negative ng/mL (Negative) 08/11/25 21:08 Ur Amphetamines Screen Negative ng/mL (Negative) 08/11/25 21:08 U Benzodiazepines Scrn Negative ng/mL (Negative) 08/11/25 21:08 Urine Cocaine Screen Negative ng/mL (Negative) 08/11/25 21:08 U Marijuana (THC) Screen Negative ng/mL (Negative) 08/11/25 21:08 Influenza A (PCR) Negative (Negative) 08/11/25 20:33 Influenza Type B (PCR) Negative (Negative) 08/11/25 20:33 RSV (PCR) Negative (Negative) 08/11/25 20:33 SARS-CoV-2 (PCR) Negative (Negative) 08/11/25 20:33 All radiology interpretation(s) finalized by discharge Discharge Plan Discharge Patient Disposition: Home Clinical Impression: Generalized epilepsy Condition: Stable Prescriptions: No Action clonidine HCl 0.3 mg tablet 0.3 mg PO BEDTIME Qty: 30 11RF propranolol 10 mg tablet 10 mg PO BID Qty: 60 11RF sertraline 100 mg tablet 150 mg PO DAILY Qty: 45 11RF trazodone 50 mg tablet 25 mg PO DAILY Qty: 15 11RF mupirocin [Centany] 2 % ointment 1 applic topical BID PRN (Reason: skin infection) Qty: 15 0RF acetaminophen 500 mg capsule 500 mg PO Q6H PRN (Reason: fever or pain) Qty: 180 2RF (DME) Depend adult diapers See Rx Instructions .Route .MEDSUPPLY Qty: 200 6RF Rx Instructions: As directed loratadine [Allergy Relief (loratadine)] 10 mg tablet 10 mg PO DAILY Qty: 90 2RF Icy Hot 30-10 % stick 1 applic topical BID PRN (Reason: muscle pain) Qty: 49 3RF multivitamin with folic acid [Thera] 400 mcg tablet 1 tab PO DAILY Qty: 90 2RF polyethylene glycol 3350 [Miralax] 17 gram/dose powder 17 g PO DAILY Qty: 238 2RF psyllium husk 0.4 gram capsule 0.4 g PO DAILY Qty: 90 3RF levetiracetam 1,000 mg tablet 1,500 mg PO BID Qty: 90 0RF Discharge Orders: Discharge ED (Routine); Ordered 08/11/25 Ordered By: Carlton Yanes Referrals: Marek Chavez NP [Primary Care Provider, [facility]] Patient Instructions: Patient Portal & Paul Instructions Activity Restrictions/Additional Instructions: Follow-up with your neurologist in [place]. Please follow-up with primary care as well. Keppra level pending at this time. Your workup today in the emergency department was reassuring, continue taking your prescribed medications. Please return with any recurrence of seizures or any other concerns that you have. Print Language: Estonian Coding Level of Care Code ED [employer] for Irene Galicia
[2025-08-11 19:22] LABS: Hematocrit 48.0 % (37-53); Hemoglobin 15.50 g/dL (11.27-16.99); Mean Corpuscular HGB Conc 32.3 g/dL (30-55); Mean Corpuscular Hemoglobin 28.5 pg (27-33); Mean Corpuscular Volume 88.2 fl (82-101); Nucleated Red Blood Cells % 0 %; Platelet Count 326 10^3/cmm (157-399); Red Blood Count 5.44 10^6/uL (3.85-5.65); White Blood Count 17.83 10^3/uL (3.29-11.43)
[2025-08-11 19:37] LABS: Alanine Aminotransferase 30 U/L (0-41); Albumin Level 4.6 g/dL (3.5-5.2); Alkaline Phosphatase 120 U/L (40-130); Blood Urea Nitrogen 13 mg/dL (6-20); Calcium 9.4 mg/dL (8.5-10.5); Carbon Dioxide 23 mmol/L (22-29); Chloride 97 mmol/L (98-107); Creatinine Clr Calc Pharmacy 232.3298; Globulin 3.4 g/dL (1.3-4.6); Glucose 108 mg/dL (65-115); Magnesium 2.2 mg/dL (1.7-2.3); Osmolality Calculated 283 mOsm/kg (285-295); Sodium 136 mmol/L (136-145); Total Protein 8.0 g/dL (6.6-8.7)
[2025-08-11 19:38] LABS: Lactic Sepsis W/Reflex 1.7 mmol/L (0.5-2.2)
[2025-08-11 19:41] LABS: Anion Gap 20.8 (5-19); Aspartate Amino Transferase 28 U/L (0-40); Potassium 4.8 mmol/L (3.5-5.1)
--- NOTE | 2025-08-11 19:45 | XRR_ITS ---
PROCEDURE INFORMATION: Exam: XR Chest Exam date and time: 08/11/2025 7:50 PM Age: 24 years old Clinical indication: Other: Post seizure; Additional info: Seizure, HX of aspiration TECHNIQUE: Imaging protocol: Radiologic exam of the chest. Views: 1 view. COMPARISON: CT chest abdpel [id number] 11/06/2023 2:01 PM FINDINGS: Lungs: Unremarkable. No consolidation. Pleural spaces: Unremarkable. No pleural effusion. No pneumothorax. Heart/Mediastinum: Unremarkable. No cardiomegaly. Bones/joints: Unremarkable. XR/XR chest 1V portable [id number] IMPRESSION: No acute findings.
[2025-08-11 20:26] LABS: Base Excess VBG 2.6 mmol/L (-3.0-3.0); Blood Gas Sample Type Venous; HCO3 VBG 29.9 mmol/L (24-28); PCO2 VBG 55.1 mmHg (41-51); PO2 VBG 35.7 mmHg (25-40); Venous Blood Gas Hematocrit 49.2 % (42-52); pH VBG 7.34 (7.32-7.42)
[2025-08-11 21:17] VITALS: BP 142/95; PULSE 102; O2SAT 95
[2025-08-11 21:22] LABS: Glucose Urine UA Negative (Normal); Nitrate Urine Negative (Negative); Specific Gravity, Urine 1.018 (1.005-1.030)
[2025-08-11 21:29] LABS: PCP Screen Urine Negative (Negative)
[2025-08-11 21:55] LABS: Add Urine Microscopic? YES
[2025-08-11 21:57] LABS: Respiratory Syncytial Virus Ce NEGATIVE (Negative); SARS-CoV-2 PCR NEGATIVE (Negative)
[2025-08-11 22:33] VITALS: BP 116/61; PULSE 100; RESP 16; O2SAT 98
[2025-08-14 07:18] LABS: Levetiracetam Immunoassy 25.1 mcg/mL (6.0-46.0)
== END 2025-08-11 22:34 | disposition home or self-care (01) ==
PROVIDERS: Emergency Provider Physician Assistant; PCP Clinical Nurse Specialist Adult Health
DX: G40.409 Other generalized epilepsy and epileptic syndromes, not intractable, without status epilepticus (principal); Z11.52 Encounter for screening for COVID-19
CPT/HCPCS: 70450; 71045; 80053; 80177; 80306; 81001; 82550; 82803; 83605; 83735; 85025; 87637; 93005; 99285